=== PATIENT | male | born 1970 | race African-American/Black ===

== ENCOUNTER 2022-02-26 01:49 | Inpatient (IN) | payer BC, OTHER ==
[~2022-02-26] VITALS: Ht 182.9 cm; Wt 201.8 kg
--- NOTE | 2022-02-26 02:00 | NUR ---
[address]IBRA[address] [facility] B&C FOR SOB. O2 SATS DROPPED TO 70'S PER EMS AT TRIAGE O2 SATS 96% ON MECH VENT. GTUBE INTACT. F/C INTACT. PT AWAKE A/OX2. CONNECTED PT TO POX AND MONITOR.
--- NOTE | 2022-02-26 02:20 | NUR ---
RT AT PT'S BEDSIDE PT WITH VENT SETTINGS: TV 425 RR 18 PEEP 5 PMAX 68
--- NOTE | 2022-02-26 02:30 | NUR ---
RT NOTE PATIENT RECEIVED TRACH VIA BIVONA 8 ON BVM 15LPM BY FD. PATIENT SHOWED SIGNS OF TACHYPNEA AND ACCESSORY MUSCLE USAGE. PATIENT PLACED ON MECHANICAL VENT ON NOTED SETTINGS CHARTED GIVEN FROM FACILITY. ALARMS SET AND AUDIBLE. TRACH IS PATENT AND SECURED. AMBU BAG AT BEDSIDE. WILL CONTINUE TO MONITOR. Addendum: 02/26/22 at 0235 by DORIS GUILLORY RT Amended: Links added.
--- NOTE | 2022-02-26 02:34 | NUR ---
REVERSE UNIT OPERATOR FISHERMAN AT PT'S BEDSIDE
--- NOTE | 2022-02-26 02:46 | NUR ---
RT AT PT'S BEDSIDE FOR ABG
--- NOTE | 2022-02-26 02:55 | NUR ---
ENTRY SPECIALISTS AT PT'S BEDSIDE
[2022-02-26 02:59] LABS: ABG BASE EXCESS -0.9 mmol/L; ABG PCO2 35.4 mmHg (35.0-45.0); ABG PH 7.431 (7.350-7.450); ABG PO2 73.8 mmHg (75.0-100.0); COHb 0.1 % (0.5-1.5); MetHb 0.2 % (0.0-1.5); O2Hb 94.3 % (94.0-97.0); SITE, ABG Right Radial; VENT MODE, BG AC 18 425 40% +5
--- NOTE | 2022-02-26 03:00 | NUR ---
ARCHEOLOGIST AT PT'S BEDSIDE
[2022-02-26 03:46] LABS: BASOPHILS # (AUTO) 0.1 K/uL (0.0-0.2); BASOPHILS % (AUTO) 0.7 % (0.0-2.0); EOSINOPHILS % (AUTO) 0.1 % (0.0-6.0); HEMATOCRIT 33 % (39-51); HEMOGLOBIN 10.2 g/dL (13.5-17.5); LYMPHOCYTES # (AUTO) 0.7 K/uL (0.8-4.8); LYMPHOCYTES % (AUTO) 3.8 % (20.0-44.0); MEAN CORPUSCULAR HGB CONC 31 g/dl (31.0-36.0); MEAN CORPUSCULAR VOLUME 90 fL (80-96); MONOCYTES # (AUTO) 0.9 K/uL (0.1-1.30); MONOCYTES % (AUTO) 5.2 % (2.0-12.0); NEUTROPHILS # (AUTO) 16.4 K/uL (1.8-8.9); NEUTROPHILS % (AUTO) 90.2 % (43.0-81.0); PLATELET COUNT (AUTO) 243 K/uL (150-450); RED BLOOD CELL COUNT(AUTO) 3.67 MIL/uL (4.5-6.0); WHITE BLOOD COUNT (AUTO) 18.2 K/uL (4.3-11.0)
[2022-02-26 04:05] LABS: CALCIUM, SERUM 9.4 mg/dL (8.5-10.1); CARBON DIOXIDE 27 mmol/L (21-32); CHLORIDE 105 mmol/L (98-107); CREATININE 1.1 mg/dL (0.6-1.3); GLUCOSE 106 mg/dL (74-106); POTASSIUM 4.5 mmol/L (3.5-5.1); SODIUM SERUM 140 mmol/L (136-145); UREA NITROGEN, BLOOD 17 mg/dL (7-18)
[2022-02-26 04:10] LABS: ALANINE AMINOTRANSFERASE 38 U/L (12-78); ALBUMIN 2.3 g/dL (3.4-5.0); ALKALINE PHOSPHATASE 150 U/L (46-116); ASPARTATE AMINOTRANSFERASE 23 U/L (15-37); BILIRUBIN,DIRECT 0.5 mg/dL (0.0-0.2); BILIRUBIN,TOTAL 0.9 mg/dL (0.2-1.0); TOTAL PROTEIN, SERUM 7.4 g/dL (6.4-8.2)
--- NOTE | 2022-02-26 04:50 | NUR ---
URINE COLLECTED AND SENT TO LAB
[2022-02-26 05:08] LABS: BILIRUBIN,URINE NEGATIVE (NEGATIVE); COLOR,URINE YELLOW (YELLOW); LEUKOCYTE ESTERASE ,URINE NEGATIVE (NEGATIVE); NITRITE, URINE NEGATIVE (NEGATIVE); PH,URINE 5.5 (5.0-8.0); PROTEIN,URINE 30 mg/dl (NEGATIVE); UGLUCOSE NEGATIVE (NEGATIVE); UROBILINOGEN,URINE 0.2 EU/dL (0.2)
[2022-02-26] MEDS ORDERED: FUROSEMIDE 40 MG/4 ML VIAL IV ONE (06:30)
[2022-02-26] MEDS ORDERED: FUROSEMIDE 40 MG/4 ML VIAL ONE (06:38)
--- NOTE | 2022-02-26 07:11 | NUR ---
DR. ARENAS ASSOCIATE RELATIONS SPECIALIST AT PT'S BEDSIDE
--- NOTE | 2022-02-26 07:20 | NUR ---
ASSESSED PT ON BED AWAKE AND ALERT, ON VENT VIA TRACH, HOOKED TO V/S MONITOR, KEPT RESTED AND COMFORTABLE. WILL CONTINUE TO MONITOR.
[2022-02-26] MEDS ORDERED: AZITHROMYCIN 500 MG in IV D5W 250 ML IV ONE (08:00)
[2022-02-26] MEDS ORDERED: CEFEPIME 2 GM in IV D5W 100 ML IV ONE (08:00)
--- NOTE | 2022-02-26 08:34 | NUR ---
MID LINE RN AT BEDSIDE
[2022-02-26] MEDS ORDERED: DIGOXIN INJ 0.5 MG/2 ML AMPUL ONE (08:55)
[2022-02-26] MEDS ORDERED: ENOXAPARIN SODIUM 40 MG/0.4 ML DISP.SYRIN SQ ONE (08:55)
[2022-02-26] MEDS: VANCOMYCIN 1.5 GM in IV D5W 500 ML IV ONE ×2 (09:00→09:37)
[2022-02-26] MEDS: ENOXAPARIN SODIUM 40 MG/0.4 ML DISP.SYRIN SQ SCH (09:00)
[2022-02-26] MEDS: DIGOXIN INJ 0.5 MG/2 ML AMPUL IV SCH ×3 (09:06→20:21)
[2022-02-26] MEDS ORDERED: HYDROCODONE/APAP 5/325MG TABLET PO PRN (11:00)
[2022-02-26] MEDS ORDERED: MAG HYDROX/AL HYDROX/SIMETH 30 ML UDC PO PRN (12:00)
[2022-02-26] MEDS ORDERED: MAGNESIUM HYDROXIDE 30 ML UDC PO PRN (12:00)
[2022-02-26] MEDS ORDERED: ENOXAPARIN SODIUM 40 MG/0.4 ML DISP.SYRIN SQ SCH (12:00)
[2022-02-26] MEDS ORDERED: Z GUARD REMEDY 4 OZ OINT TP PRN (12:00)
[2022-02-26] MEDS ORDERED: ONDANSETRON HCL/PF 4 MG/2 ML VIAL IVP PRN (12:00)
--- NOTE | 2022-02-26 13:50 | NUR ---
116-1 BED ASSIGNED, SANDOVAL CARTY REPORT CALLED AT 1530 AND PATIENT MOVED AT 1600
--- NOTE | 2022-02-26 16:23 | NUR ---
PT TRANSFERRED TO [facility] PER ACLS PROTOCOL.
--- NOTE | 2022-02-26 17:20 | NUR ---
RN NOTES RECEIVED PATIENT FROM E.R, BEDSIDE ENDORSEMENT RECEIVED. PATIENT ON VENT, TOLERATING SETTINGS WELL. TRANSFERRED TO BED SAFELY. PLACE BED ON LOWEST LOCKED POSITION. CALL LIGHT WITHIN EASY REACH. STARTED ON IV ANTIBIOTICS ORDERED. VS TAKEN AND RECORDED. WILL ENDORSE TO ONCOMING FOR FURTHER ADMISSION INTERVENTION AND POC. .
[2022-02-26] MEDS: CEFEPIME 2 GM in IV D5W 100 ML IV SCH ×2 (17:51→20:20)
[2022-02-26 18:24] VITALS: BP 138/82
[2022-02-26] MEDS: VANCOMYCIN 1.25 GM in IV D5W 250 ML IV SCH (18:28)
--- NOTE | 2022-02-26 19:30 | NUR ---
RN NOTE RECEIVED PATIENT IN BED, AO X 1-2, IN NO ACUTE DISTRESS AT THIS TIME. ON TRACH BIVONA#8 CONNECTED TO MECHANICAL VENT ON AC MODE AT RATE OF 18, TV 425, FIO2 40%, PEEP 5, TOLERATING WELL, SATURATION AT 100%, ST ON THE MONITOR, HR IS 146. NOTED IV SITE AT LFA 20G, AND JOVANNY MIDLINE, ALL HUBS PATENT AND FLUSHING WELL, NO S/S OF INFECTION OR INFILTRATION. GTUBE IN PLACE, CLAMPED. NPO STATUS MAINTAINED PER MD ORDER. SAFETY MEASURES IMPLEMENTED. PATIENT BED ALARM IS ON. HEAD OF BED ELEVATED. BED IS LOCKED, IN LOWEST POSITION AND SIDE RAILS UP. CALL LIGHT WITHIN REACH OF THE PATIENT. WILL CONTINUE TO MONITOR AND REASSESS FOR ANY CHANGES.
[2022-02-26] MEDS: HYDROCODONE/APAP 5/325MG TABLET PO PRN (19:42)
[2022-02-26 20:00] VITALS: BP 143/75
--- NOTE | 2022-02-26 22:50 | NUR ---
RN NOTE NOTED PATIENT ST ON THE MONITOR, HR CONSISTENTLY ELEVATED LOWEST AT 148 TO LOW 150'S, PRN PAIN MEDICATION ADMINISTERED AT 1942, DIGOXIN 0.25 MG IV ADMINISTERED SCHEDULED, HR REMAINS AT 140'S. DR OCONNOR WAS NOTIFIED, ACKNOWLEDGED WITH NO NEW ORDERS. GOLF TOURNAMENT CONSULTANT CHAZ MADE AWARE. WILL CONT TO MONITOR PATIENT
[2022-02-27] VITALS: BP 147/78
[2022-02-27] MEDS: VANCOMYCIN 1.25 GM in IV D5W 250 ML IV SCH ×2 (02:25→11:55)
[2022-02-27] MEDS: HYDROCODONE/APAP 5/325MG TABLET PO PRN ×2 (02:47→03:38)
[2022-02-27 04:00] VITALS: BP 116/80
--- NOTE | 2022-02-27 05:30 | NUR ---
RN NOTE IAN RT AT BEDSIDE FOR EKG, RESULTED: ST AT 148.
[2022-02-27 07:12] LABS: BASOPHILS % (AUTO) 0.2 % (0.0-2.0); EOSINOPHILS % (AUTO) 0.2 % (0.0-6.0); HEMATOCRIT 31 % (39-51); HEMOGLOBIN 9.8 g/dL (13.5-17.5); LYMPHOCYTES # (AUTO) 1.1 K/uL (0.8-4.8); LYMPHOCYTES % (AUTO) 5.7 % (20.0-44.0); MEAN CORPUSCULAR HGB CONC 31 g/dl (31.0-36.0); MEAN CORPUSCULAR VOLUME 90 fL (80-96); MONOCYTES # (AUTO) 1.5 K/uL (0.1-1.30); MONOCYTES % (AUTO) 7.8 % (2.0-12.0); NEUTROPHILS # (AUTO) 16.8 K/uL (1.8-8.9); NEUTROPHILS % (AUTO) 86.1 % (43.0-81.0); PLATELET COUNT (AUTO) 199 K/uL (150-450); RED BLOOD CELL COUNT(AUTO) 3.47 MIL/uL (4.5-6.0); WHITE BLOOD COUNT (AUTO) 19.5 K/uL (4.3-11.0)
[2022-02-27 07:45] LABS: CALCIUM, SERUM 8.9 mg/dL (8.5-10.1); CREATININE 0.9 mg/dL (0.6-1.3); MAGNESIUM 2.1 mg/dL (1.8-2.4); POTASSIUM 3.9 mmol/L (3.5-5.1)
[2022-02-27 07:46] LABS: THYROID STIMULATING HORMONE 3.624 uIU/mL (0.358-3.74)
[2022-02-27 08:00] VITALS: BP 121/83
[2022-02-27] MEDS: CEFEPIME 2 GM in IV D5W 100 ML IV SCH ×2 (08:56→19:37)
[2022-02-27] MEDS: PANTOPRAZOLE 40 MG TABLET.DR PO SCH (08:56)
[2022-02-27] MEDS: ENOXAPARIN SODIUM 40 MG/0.4 ML DISP.SYRIN SQ SCH (08:57)
[2022-02-27] MEDS ORDERED: AMIODARONE 450 MG in IV D5W 250 ML IV PRN (09:00)
[2022-02-27] MEDS ORDERED: AMIODARONE 150 MG in IV D5W 100 ML IV ONE (09:00)
[2022-02-27 12:00] VITALS: BP 124/77
[2022-02-27] MEDS ORDERED: NA P133E RC (14:46)
[2022-02-27] MEDS ORDERED: METO25TA20 GT (14:46)
[2022-02-27] MEDS ORDERED: CRAN425C6 GT (14:46)
[2022-02-27] MEDS ORDERED: ACET-868 GT (14:46)
[2022-02-27] MEDS ORDERED: BISA10SU11 RC (14:46)
[2022-02-27] MEDS ORDERED: AMMO385C4 TP (14:46)
[2022-02-27] MEDS ORDERED: POLY17PO4 GT (14:46)
[2022-02-27] MEDS ORDERED: PANT40SU2 GT (14:46)
[2022-02-27] MEDS ORDERED: INSU100V39 SQ (14:46)
[2022-02-27] MEDS ORDERED: GLUC1KIT IM (14:46)
[2022-02-27] MEDS ORDERED: ONDA4TAB5 GT (14:46)
[2022-02-27] MEDS ORDERED: ENOX40DI SQ (14:46)
[2022-02-27] MEDS ORDERED: MAGN400O6 GT (14:46)
[2022-02-27] MEDS ORDERED: AMIO200T5 GT (14:46)
[2022-02-27] MEDS ORDERED: NS C250O2 GT (14:46)
[2022-02-27 16:00] VITALS: BP 113/99
[2022-02-27] MEDS: AMIODARONE 450 MG in IV D5W 241 ML IV PRN ×2 (16:38→22:23)
--- NOTE | 2022-02-27 19:30 | NUR ---
RN OPENING NOTES RECEIVED PATIENT IN BED, A/O X 2. NO ACUTE DISTRESS NOTED AT THIS TIME. PT CURRENTLY ON TRACH BIVONA#8 CONNECTED TO MECHANICAL VENT ON AC MODE AT RATE OF 18, TV 425, FIO2 40%, PEEP 5, TOLERATING WELL, O2 SATURATION OF 96%. PT ON TELE MONITORING SHOWING ST WITH HR OF 132. IV SITE IS AT LFA 20G, AND JOVANNY MIDLINE, INTACT AND PATENT. CURRENTLY ON AMIO DRIP 1 MG/HR. NO S/S OF INFILTRATION NOTED. GTUBE IN PLACE, CLAMPED. PT IS NPO PER MD ORDER. GARCIA CONNECTED TO URINE BAG, DRAINING WELL, WITH DARK YELLOW COLORED URINE NOTED. ALL SAFETY MEASURES IMPLEMENTED. KEPT HEAD OF THE BED ELEVATED. BED IS LOCKED, IN LOWEST POSITION, SIDE RAILS UP X 3 NOTED. CALL LIGHT WITHIN REACH. WILL CONTINUE TO MONITOR FOR ANY CHANGES.
--- NOTE | 2022-02-27 19:40 | NUR ---
RN NOTE VANCO TROUGH RESULTED 27. CALLED [facility], SPOKE WITH NGHIA. 1800 DOSE WILL BE HELD AND OK TO GIVE 2AM VANCO DOSE AND FOR PHARMACY IN AM TO FOLLOW UP.
[2022-02-27 20:00] VITALS: BP 124/77
[2022-02-27] MEDS ORDERED: VANCOMYCIN 1.25 GM in IV D5W 250 ML IV SCH (20:30)
[2022-02-28] VITALS: BP 120/75
[2022-02-28] MEDS: CEFEPIME 2 GM in IV D5W 100 ML IV SCH ×3 (01:12→16:33)
--- NOTE | 2022-02-28 01:21 | NUR ---
RN NOTE SPOKE WITH DYLON DAMON. NOTIFIED PATIENT DOES NOT HAVE FLUIDS OR TUBE FEEDING ORDER. RECEIVED NEW ORDER OK TO START JEVITY 1.2 GOAL 80ML/HR PER RD RECOMMENDATION. NOTED AND CARRIED OUT.
[2022-02-28] MEDS ORDERED: VANCOMYCIN 1.25 GM in IV D5W 250 ML IV ONE (02:00)
[2022-02-28 04:00] VITALS: BP 138/80
[2022-02-28] MEDS: JEVITY 1.2 CAL 1,000 ML BOTTLE GT PRN (04:46)
--- NOTE | 2022-02-28 07:12 | NUR ---
RN CLOSING NOTES NO SIGNIFICANT CHANGES THROUGHOUT THE SHIFT. PT IS A/O X 2, RESPONDS VERBALLY WHEN ASKED QUESTIONS. ON MECHANICAL VENT, TOLERATING WELL, WITH 02 SATURATION OF 100%. PT HAS JOVANNY MIDLINE, LFA WITH GAUGE #20, INTACT AND PATENT. CONTINUOUS AMIO DRIP RUNNING AT 16.6 ML/HR X 18 HRS. PT ON TELE MONITORING SHOWING A FLUTTER WITH HR IN 150S. GT FEEDING RESUMED, JEVITY 1.2 AT 40 ML/HR RUNNING WITH GOAL OF 80 ML/HR FOR 24 HRS. NO RESIDUALS NOTED. ALL DUE MEDS GIVEN ORDERED. ALL SAFETY MEASURES IMPLEMENTED. BED IN LOWEST POSITION, LOCKED AND IN PLACE. CALL LIGHT WITHIN REACH. ALL NEEDS ATTENDED. WILL ENDORSE TO AM SHIFT FOR VY.
--- NOTE | 2022-02-28 07:30 | NUR ---
RN OPENING NOTES RECEIVED PATIENT IN BED, A/O X 2. TRACH BIVONA#8 CONNECTED TO MECHANICAL VENT ON AC MODE AT RATE OF 18, TV 425, FIO2 40%, PEEP 5,TOLERATING WELL, O2 SATURATION OF 100%. BREATHING EVEN AND UNLABORED, NO ACUTE DISTRESS,SINUS TACH HR 151 ON MONITOR, DENIES CHEST DISCOMFORT OR PAIN, MED AWARE. JOVANNY MIDLINE WITH AMIO DIRP AT 16.6 ML/HR. [DC TIME 1640 TODAY??] LFA 20G, FLUSHES WELL, BOTH SITES CLEAR. ONGOING GTF JEVITY 1.2 AT 40 ML/HR [GOAL 80 ML/HR], CHECKED FOR PLACEMENT, O RESIDUAL,GARCIA CATHETER IN PLACE TO GRAVITY, DARK YELLOW URINE, NPO FOR NOW, SEE NURSING FLOWSHEET FOR SKIN ASSESSMENT, FOR WOUND CONSULT. ON BARIMAX BED, TURN AND REPOSITION Q 2 HOURS. OFF LOADING, ALL SAFETY MEASURES IMPLEMENTED. KEPT HEAD OF THE BED ELEVATED. BED IS LOCKED, IN LOWEST POSITION, SIDE RAILS UP X 3 NOTED. CALL LIGHT WITHIN REACH. WILL CONTINUE TO MONITOR FOR ANY CHANGES.
[2022-02-28] MEDS: PANTOPRAZOLE 40 MG TABLET.DR PO SCH (07:46)
[2022-02-28 08:00] VITALS: BP 135/69
[2022-02-28] MEDS: ENOXAPARIN SODIUM 40 MG/0.4 ML DISP.SYRIN SQ SCH ×2 (08:57→20:27)
[2022-02-28] MEDS ORDERED: ADENOSINE 6 MG/2 ML VIAL IVP ONE (09:00)
[2022-02-28 09:21] LABS: BASOPHILS # (AUTO) 0.1 K/uL (0.0-0.2); BASOPHILS % (AUTO) 0.6 % (0.0-2.0); EOSINOPHILS % (AUTO) 0.2 % (0.0-6.0); HEMATOCRIT 31 % (39-51); HEMOGLOBIN 9.4 g/dL (13.5-17.5); LYMPHOCYTES # (AUTO) 0.9 K/uL (0.8-4.8); LYMPHOCYTES % (AUTO) 4.8 % (20.0-44.0); MEAN CORPUSCULAR HGB CONC 30 g/dl (31.0-36.0); MEAN CORPUSCULAR VOLUME 92 fL (80-96); MONOCYTES # (AUTO) 1.3 K/uL (0.1-1.30); MONOCYTES % (AUTO) 7.3 % (2.0-12.0); NEUTROPHILS % (AUTO) 87.1 % (43.0-81.0); PLATELET COUNT (AUTO) 187 K/uL (150-450); RED BLOOD CELL COUNT(AUTO) 3.39 MIL/uL (4.5-6.0); WHITE BLOOD COUNT (AUTO) 18.3 K/uL (4.3-11.0)
[2022-02-28] MEDS ORDERED: IV NS 0.9% 250 ML IV PRN (09:30)
--- NOTE | 2022-02-28 09:30 | NUR ---
RN NOTES DUE MEDS GIVEN
--- NOTE | 2022-02-28 09:35 | NUR ---
RN NOTES DR. ARENAS AT BEDSIDE, WITH ORDER TO GIVE ADENOSINE 6 MG IV ONE TIME FOR FAST HEART RATE.
[2022-02-28 09:46] LABS: ALBUMIN 1.9 g/dL (3.4-5.0); BILIRUBIN,TOTAL 0.9 mg/dL (0.2-1.0); CALCIUM, SERUM 8.8 mg/dL (8.5-10.1); CREATININE 0.9 mg/dL (0.6-1.3); MAGNESIUM 1.7 mg/dL (1.8-2.4); PHOSPHORUS 2.6 mg/dL (2.5-4.9); POTASSIUM 3.9 mmol/L (3.5-5.1); TOTAL PROTEIN, SERUM 6.6 g/dL (6.4-8.2)
[2022-02-28] MEDS ORDERED: ENOXAPARIN SODIUM 60 MG/0.6 ML DISP.SYRIN SQ ONE (10:00)
--- NOTE | 2022-02-28 10:09 | NUR ---
WOUND CARE CONSULT: PT PRESENTS WITH RT FOOT DRY BLACK NECROTIC TISSUE, LONG TOENAILS AND SCARRING TO SACRAL/BUTTOCKS AREA, ALL PRESENT ON ADMISSION. PT IS ON BARIMAX ETS AIR BED. DPM CONSULT CALLED TO DR CLEMONS. RECOMMENDATIONS MADE FOR SKIN PROTECTION. DISCUSSED WITH NURSING STAFF. MD IN AGREEMENT WITH PLAN OF CARE.
[2022-02-28 12:00] VITALS: BP 128/77
[2022-02-28] MEDS: ACETAMINOPHEN 325 MG TABLET PO PRN (12:13)
[2022-02-28] MEDS: METOPROLOL TARTRATE 50 MG TABLET PO SCH ×2 (12:13→18:16)
[2022-02-28] MEDS: AMIODARONE 450 MG in IV D5W 241 ML IV PRN (12:17)
[2022-02-28] MEDS ORDERED: ACETAMINOPHEN 650 MG/SUPP.RECT RC PRN (15:00)
[2022-02-28 16:00] VITALS: BP 153/54
--- NOTE | 2022-02-28 16:44 | NUR ---
RN NOTES DR. VALENCIA NOTIFIED, CT SCAN COULD NOT BE DONE. PER CT TECHS, THEIR BED COULD ONLY HOLD UP TO 400 LBS. PT IS 510 LBS
--- NOTE | 2022-02-28 16:46 | NUR ---
UNABLE TO SCAN PATIENT FOR CT OF THE CHEST, PT EXCEEDS WEIGHT LIMIT FOR TABLE WHICH IS 400 LBS.
[2022-02-28] MEDS ORDERED: VANCOMYCIN 1.25 GM in IV D5W 250 ML IV SCH (18:00)
--- NOTE | 2022-02-28 18:32 | NUR ---
RN NOTES VANCO TROUGH 23.4. PHARMACY WINTER VALLES. VANCO IV FOR 1800 NOT ADMINISTERED.
--- NOTE | 2022-02-28 19:21 | NUR ---
TD RN CLOSING NOTES PATIENT IN BED, RESTING, A/O X 2. TRACH BIVONA#8 CONNECTED TO MECHANICAL VENT ON AC MODE AT RATE OF 18, TV 425, FIO2 40%, PEEP 5,TOLERATING WELL, O2 SATURATION OF 100%. BREATHING EVEN AND UNLABORED, NO ACUTE DISTRESS,SINUS TACH HR 131 ON MONITOR, DENIES CHEST DISCOMFORT OR PAIN, JOVANNY MIDLINE WITH AMIO DIRP AT 16.6 ML/HR. LFA 20G, FLUSHES WELL, BOTH SITES CLEAR. ONGOING GTF JEVITY 1.2 AT 80 ML/HR, CHECKED FOR PLACEMENT, O RESIDUAL,GARCIA CATHETER IN PLACE TO GRAVITY 700 ML OUTPUT, DARK YELLOW URINE, NPO. ON [facility] BED, PERFORMED PRESCRIBED WOUND TREATMENT. TURNED AND REPOSITIONED Q 2 HOURS. OFF LOADING, ALL SAFETY MEASURES IMPLEMENTED. KEPT HEAD OF THE BED ELEVATED. BED IS LOCKED, IN LOWEST POSITION, SIDE RAILS UP X 3 NOTED. CALL LIGHT WITHIN REACH. ALL NEEDS MET. PM CARE DONE. WILL ENDORSE TO NEXT SHIFT FOR VY.
--- NOTE | 2022-02-28 19:30 | NUR ---
RN OPENING NOTES RECEIVED PT IN BED, AWAKE AND RESTING, A/O X 2. RESPONDS VERBALLY WHEN ASKED QUESTIONS. TRACH BIVONA#8 CONNECTED TO MECHANICAL VENT ON AC MODE AT RATE OF 18, TV 425, FIO2 40%, PEEP 5,TOLERATING WELL, O2 SATURATION OF 96%. BREATHING EVEN AND UNLABORED, NO S/S OF ACUTE DISTRESS AT THIS TIME. SINUS TACH HR 131 ON MONITOR, DENIES CHEST DISCOMFORT OR PAIN, JOVANNY MIDLINE WITH AMIO DRIP AT 16.6 ML/HR. LFA 20G, FLUSHES WELL, INTACT AND PATENT. ONGOING GTF JEVITY 1.2 AT 80 ML/HR, CHECKED FOR PLACEMENT, O RESIDUAL, TOLERATING WELL. GARCIA CATHETER IN PLACE TO GRAVITY, DRAINING WELL, WITH DARK YELLOW COLORED URINE NOTED. ON [facility] BED, KEPT CLEAN AND DRY. ALL SAFETY MEASURES IMPLEMENTED. KEPT HEAD OF THE BED ELEVATED. BED IS LOCKED, IN LOWEST POSITION, SIDE RAILS UP X 3 NOTED. CALL LIGHT WITHIN REACH. WILL CONTINUE TO MONITOR.
[2022-02-28 20:00] VITALS: BP 125/79
[2022-03-01] VITALS: BP 143/70
[2022-03-01] MEDS: METOPROLOL TARTRATE 50 MG TABLET PO SCH ×4 (00:12→17:21)
[2022-03-01] MEDS: CEFEPIME 2 GM in IV D5W 100 ML IV SCH ×3 (01:02→17:20)
[2022-03-01] MEDS: ACETAMINOPHEN 325 MG TABLET PO PRN (03:01)
--- NOTE | 2022-03-01 03:01 | NUR ---
RN NOTE PATIENT NOTED WITH TEMP 101. ADMINISTERED TYLENOL VIA G-TUBE PRN ORDERED. COOLING MEASURES PROVIDED.
[2022-03-01 04:00] VITALS: BP 113/73
[2022-03-01] MEDS: JEVITY 1.2 CAL 1,000 ML BOTTLE GT PRN (04:03)
[2022-03-01] MEDS: AMIODARONE 450 MG in IV D5W 241 ML IV PRN (04:03)
--- NOTE | 2022-03-01 07:18 | NUR ---
RN CLOSING NOTES PT IN BED, RESTING, A/0 X 2. VERBALLY RESPONSIVE. ON MECHANICAL VENT, TOLERATING WELL, WITH O2 SAT OF 99%. PT HAS JOVANNY AND LFA GAUGE #20. BOTH PATENT AND INTACT. FLUSHES WELL. AMIO DRIP RUNNING AT 16.66 ML/HR. PT IS ON TELE MONITORING SHOWING ST, A FLUTTER AND A FIB AT TIMES, WITH HR IN 120s. PT ON GT FEEDING, JEVITY 1.2 AT 80 ML/HR. FLUSHES WELL, 0 RESIDUAL. ALL DUE MEDS GIVEN ORDERED. ALL NEEDS ATTENDED. TURNED AND REPOSITIONED FREQUENTLY. ALL SAFETY MEASURES FOLLOWED. BED IN LOWEST POSITION, LOCKED IN PLACE. CALL LIGHT WITHIN REACH. WILL ENDORSE TO AM SHIFT FOR VY.
[2022-03-01 07:47] LABS: BASOPHILS # (AUTO) 0.1 K/uL (0.0-0.2); BASOPHILS % (AUTO) 0.4 % (0.0-2.0); EOSINOPHILS % (AUTO) 1.2 % (0.0-6.0); HEMATOCRIT 32 % (39-51); HEMOGLOBIN 9.9 g/dL (13.5-17.5); LYMPHOCYTES # (AUTO) 0.9 K/uL (0.8-4.8); LYMPHOCYTES % (AUTO) 5.4 % (20.0-44.0); MEAN CORPUSCULAR HGB CONC 31 g/dl (31.0-36.0); MEAN CORPUSCULAR VOLUME 92 fL (80-96); MONOCYTES # (AUTO) 1.6 K/uL (0.1-1.30); MONOCYTES % (AUTO) 9.7 % (2.0-12.0); NEUTROPHILS # (AUTO) 14.1 K/uL (1.8-8.9); NEUTROPHILS % (AUTO) 83.3 % (43.0-81.0); PLATELET COUNT (AUTO) 224 K/uL (150-450); WHITE BLOOD COUNT (AUTO) 16.9 K/uL (4.3-11.0)
[2022-03-01 08:00] VITALS: BP 101/28
[2022-03-01] MEDS: VANCOMYCIN 1.25 GM in IV D5W 250 ML IV SCH (08:46)
[2022-03-01] MEDS: ENOXAPARIN SODIUM 40 MG/0.4 ML DISP.SYRIN SQ SCH ×2 (08:54→20:26)
[2022-03-01] MEDS: PANTOPRAZOLE 40 MG TABLET.DR PO SCH (09:24)
[2022-03-01 11:05] LABS: ALBUMIN 1.7 g/dL (3.4-5.0); BILIRUBIN,TOTAL 1.1 mg/dL (0.2-1.0); CALCIUM, SERUM 8.8 mg/dL (8.5-10.1); CREATININE 1.1 mg/dL (0.6-1.3); MAGNESIUM 1.8 mg/dL (1.8-2.4); PHOSPHORUS 3.3 mg/dL (2.5-4.9); POTASSIUM 3.9 mmol/L (3.5-5.1); TOTAL PROTEIN, SERUM 6.4 g/dL (6.4-8.2)
[2022-03-01 12:00] VITALS: BP 140/81
[2022-03-01] MEDS: DIGOXIN 0.25 MG TABLET PO SCH (12:11)
[2022-03-01] MEDS: DILTIAZEM HCL 30 MG TABLET GT SCH ×2 (12:12→17:21)
[2022-03-01 14:26] LABS: BAND % (MANUAL) 1 % (0.0-5.0); LYMPHOCYTES % (MANUAL) 8 % (16-48); MONOCYTES % (MANUAL) 10 % (0-11.0); NEUTROPHILS % (MANUAL) 81 (42-76)
[2022-03-01 16:00] VITALS: BP 115/70
--- NOTE | 2022-03-01 18:45 | NUR ---
GT SITE LEAKING. DRESSING CHANGED. DR. NOLAN AWARE. PICTURE TAKEN AND PLACED IN CHART
--- NOTE | 2022-03-01 19:11 | NUR ---
RN CLOSING NOTES PT A/O X2. VENTED WITH SETTINGS AC 18, TV425, FIO2 40% AND PEEP OF 5. URINE OUTPUT 350CC. PT TOLERATING 80CC JEVITY. PT GT SITE LEAKING AND PER DR. AN MERLOS. NO FEVER REPORTED TODAY.
--- NOTE | 2022-03-01 19:12 | NUR ---
RECEIVED PT IN BED, AWAKE AND RESTING, A/O X 2. RESPONDS VERBALLY WHEN ASKED QUESTIONS. TRACH BIVONA#8 CONNECTED TO MECHANICAL VENT ON AC MODE AT RATE OF 18, TV 425, FIO2 40%, PEEP 5,TOLERATING WELL, O2 SATURATION OF 96%. BREATHING EVEN AND UNLABORED, NO S/S OF ACUTE DISTRESS AT THIS TIME. SINUS TACH HR 131 ON MONITOR, DENIES CHEST DISCOMFORT OR PAIN, JOVANNY MIDLINE LFA 20G, FLUSHES WELL, INTACT AND PATENT.GTUBE LEAKING WILL ORDER KUB XRAY FOR PLACEMENT VERIFICATION GARCIA CATHETER IN PLACE TO GRAVITY, DRAINING WELL, WITH DARK YELLOW COLORED URINE NOTED. ON [facility] BED, KEPT CLEAN AND DRY. ALL SAFETY MEASURES IMPLEMENTED. KEPT HEAD OF THE BED ELEVATED. BED IS LOCKED, IN LOWEST POSITION, SIDE RAILS UP X 3 NOTED. CALL LIGHT WITHIN REACH. WILL CONTINUE TO MONITOR.
[2022-03-01] MEDS ORDERED: DIATR MEGLU/DIATRIZOATE SODIUM 30 ML BOTTLE (GASTROGRAPHIN) ONE (19:34)
[2022-03-01 20:00] VITALS: BP 133/83
--- NOTE | 2022-03-01 22:45 | NUR ---
REPORTED TO HOSPITALIST KATIE PARSONS THAT PT GTUBE WAS MALPOSITION RESULTED FROM KUB X RAY AND PT HAVE SCHEDULED MEDICATION THRU GTUBE FOR HIS HR WITH ORDER TO HOLD THE GTUBE MEDICATION AND INSTEAD GIVE METOPROLOL 5MG IV Q12H AND CARDIZEM 5MG IVP X1 NOTED AND CARRIED OUT
[2022-03-01] MEDS: METOPROLOL TARTRATE INJ 5 MG/5 ML AMPUL IV SCH (23:24)
[2022-03-01] MEDS ORDERED: DILTIAZEM HCL 25 MG IV IV ONE (23:30)
[2022-03-02] VITALS: BP 108/65
[2022-03-02] MEDS: CEFEPIME 2 GM in IV D5W 100 ML IV SCH ×3 (01:30→17:05)
[2022-03-02 04:00] VITALS: BP 131/67
[2022-03-02] MEDS: PANTOPRAZOLE 40 MG TABLET.DR PO SCH (07:30)
--- NOTE | 2022-03-02 07:37 | NUR ---
RN OPENING NOTE RECEIVED PT IN BED, AWAKE AND RESTING, A/O X 2.. TRACH BIVONA#8 CONNECTED TO MECHANICAL VENT ON AC MODE AT RATE OF 18, TV 425, FIO2 40%, PEEP 5,TOLERATING WELL, O2 SATURATION OF 96%. BREATHING EVEN AND UNLABORED, NO S/S OF ACUTE DISTRESS AT THIS TIME. DENIES CHEST DISCOMFORT OR PAIN, JOVANNY MIDLINE LFA 20G, FLUSHES WELL, INTACT AND PATENT. PER ENDORSEMENT PATIENTS G TUBE IN NOT IN PLACE PENDING ORDERS. GARCIA CATHETER IN PLACE TO GRAVITY, DRAINING WELL, WITH DARK YELLOW COLORED URINE NOTED. ALL SAFETY MEASURES IMPLEMENTED. KEPT HEAD OF THE BED ELEVATED. BED IS LOCKED, IN LOWEST POSITION, SIDE RAILS UP X 3 NOTED. CALL LIGHT WITHIN REACH.
[2022-03-02 08:00] VITALS: BP 132/65
[2022-03-02] MEDS: METOPROLOL TARTRATE INJ 5 MG/5 ML AMPUL IV SCH ×2 (08:11→21:22)
[2022-03-02] MEDS: ENOXAPARIN SODIUM 40 MG/0.4 ML DISP.SYRIN SQ SCH (08:16)
--- NOTE | 2022-03-02 08:17 | NUR ---
RN NOTE BASED ON KUB PATIENTS GTUBE IS MISPLACED. WILL HOLD 0900 G TUBE MEDICATION.
[2022-03-02] MEDS: VANCOMYCIN 1.25 GM in IV D5W 250 ML IV SCH (09:27)
[2022-03-02 09:51] LABS: CREATININE 1.4 mg/dL (0.6-1.3); POTASSIUM 3.2 mmol/L (3.5-5.1)
[2022-03-02 10:10] LABS: CALCIUM, SERUM 8.6 mg/dL (8.5-10.1)
[2022-03-02 12:00] VITALS: BP 118/62
[2022-03-02] MEDS: METOPROLOL TARTRATE 50 MG TABLET PO SCH ×2 (12:00→18:00)
[2022-03-02] MEDS ORDERED: METOPROLOL TARTRATE 25 MG TABLET GT SCH (13:00)
[2022-03-02] MEDS: DIGOXIN 0.25 MG TABLET PO SCH (13:00)
[2022-03-02] MEDS: IV LR 1000 ML 1,000 ML IV PRN (15:39)
[2022-03-02 16:00] VITALS: BP 104/72
--- NOTE | 2022-03-02 19:09 | NUR ---
RN CLOSING NOTE RECEIVED PT IN BED, AWAKE AND RESTING, A/O X 2.. TRACH BIVONA#8 CONNECTED TO MECHANICAL VENT ON AC MODE AT RATE OF 18, TV 425, FIO2 40%, PEEP 5,TOLERATING WELL, O2 SATURATION OF 96%. BREATHING EVEN AND UNLABORED, NO S/S OF ACUTE DISTRESS AT THIS TIME. DENIES CHEST DISCOMFORT OR PAIN, JOVANNY MIDLINE LFA 20G, FLUSHES WELL, INTACT AND PATENT. . GARCIA CATHETER IN PLACE TO GRAVITY, DRAINING WELL, WITH DARK YELLOW COLORED URINE NOTED. ALL SAFETY MEASURES IMPLEMENTED. KEPT HEAD OF THE BED ELEVATED. BED IS LOCKED, IN LOWEST POSITION, SIDE RAILS UP X 3 NOTED. CALL LIGHT
--- NOTE | 2022-03-02 19:20 | NUR ---
RN NOTES RECEIVED PT IN BED, AWAKE AND RESTING, A/O X 2 WITH PERIODS OF CONFUSION. TRACH BIVONA#8 CONNECTED TO MECHANICAL VENT ON AC MODE AT RATE OF 18, TV 425, FIO2 40%, PEEP 5,TOLERATING WELL, O2 SATURATION OF 96%. BREATHING EVEN AND UNLABORED, NO S/S OF ACUTE DISTRESS AT THIS TIME. DENIES CHEST DISCOMFORT OR PAIN, JOVANNY MIDLINE LFA 20G, FLUSHES WELL, INTACT AND PATENT. PER ENDORSEMENT PATIENTS G TUBE REMOVED ORDERED. REFUSED NGT GARCIA CATHETER IN PLACE TO GRAVITY, DRAINING WELL, WITH DARK YELLOW COLORED URINE NOTED. ALL SAFETY MEASURES IMPLEMENTED. KEPT HEAD OF THE BED ELEVATED. BED IS LOCKED, IN LOWEST POSITION, SIDE RAILS UP X 3 NOTED. CALL LIGHT WITHIN REACH.
[2022-03-02 20:00] VITALS: BP 125/84
[2022-03-02] MEDS: AMIODARONE HCL 200 MG TABLET GT SCH (21:00)
--- NOTE | 2022-03-02 21:00 | NUR ---
RN NOTES NOTED HR 130'S PATIENT DENIES ANY PAIN OR DISCOMFORT. NO CHEST PAIN. INFOREMED DR. PARSONS PATIENT GT HAS BEEN REMOVED AND P.O AMIODARONE IS DUE. DR PARSONS INFOREMED AND SAID HELD PO AMIODARONE FOR NOW.
[2022-03-03] VITALS: BP 124/68
--- NOTE | 2022-03-03 | NUR ---
RN NOTES DUE METOPROLOL PO NOT GIVEN PATIENT IS ON NPO. FOR GT RE-INSERTION.
[2022-03-03] MEDS: CEFEPIME 2 GM in IV D5W 100 ML IV SCH ×3 (01:27→16:07)
[2022-03-03 04:00] VITALS: BP 126/65
[2022-03-03] MEDS: IV LR 1000 ML 1,000 ML IV PRN ×2 (04:28→18:06)
[2022-03-03] MEDS: METOPROLOL TARTRATE 50 MG TABLET PO SCH ×4 (06:00→17:03)
--- NOTE | 2022-03-03 06:02 | NUR ---
RN NOTES METOPROLOL NOT GIVEN PATIENT IS NPO NO GT.
--- NOTE | 2022-03-03 06:43 | NUR ---
RN NOTES PATIENT IN VENT WITH PRESCRIBED SETTINGS TOLERATING WELL SATING 98%. STILL ON SINUS TACH NO CHEST PAIN NO DISTRESS NOTED. ALL IV MEDS GIVEN ORDERED. ALL NEEDS ATTENDED PROMPTLY. IV LINE PATENT FLUSHES WELL ON CONTINUOS IVF LR @ 80 CC/HR. GARCIA PATENT. ALL NEEDS ATTENDED. KEPT CLEAN AND DRYA AT ALL TIMES. WILL ENDORSE TO MORNING SHIFT FOR VY.
[2022-03-03 07:24] LABS: BASOPHILS % (AUTO) 0.3 % (0.0-2.0); HEMATOCRIT 28 % (39-51); HEMOGLOBIN 8.7 g/dL (13.5-17.5); LYMPHOCYTES % (AUTO) 7.3 % (20.0-44.0); MEAN CORPUSCULAR HGB CONC 31 g/dl (31.0-36.0); MEAN CORPUSCULAR VOLUME 91 fL (80-96); MONOCYTES # (AUTO) 1.8 K/uL (0.1-1.30); MONOCYTES % (AUTO) 14.2 % (2.0-12.0); NEUTROPHILS % (AUTO) 77.2 % (43.0-81.0); PLATELET COUNT (AUTO) 183 K/uL (150-450); RED BLOOD CELL COUNT(AUTO) 3.06 MIL/uL (4.5-6.0); WHITE BLOOD COUNT (AUTO) 12.9 K/uL (4.3-11.0)
[2022-03-03] MEDS: PANTOPRAZOLE 40 MG TABLET.DR PO SCH (07:30)
[2022-03-03 07:33] LABS: CALCIUM, SERUM 8.4 mg/dL (8.5-10.1); CREATININE 1.8 mg/dL (0.6-1.3); MAGNESIUM 1.9 mg/dL (1.8-2.4); PHOSPHORUS 3.1 mg/dL (2.5-4.9); POTASSIUM 3.1 mmol/L (3.5-5.1)
--- NOTE | 2022-03-03 07:50 | NUR ---
RN OPENING NOTE PATIENT RECEIVED IN BED, RESTING. PATIENT ON MECHANICAL VENTILATOR WITH FIO2 40%. GARCIA CATH IN PLACE. GTUBE REMOVED YESTERDAY ORDERED. LEFT UA MIDLINE RUNNING LR AT 80 CC/HR. NO SIGNS OF ACUTE DISTRESS NOTED AT THIS TIME. BED LOCKED AND IN LOWEST POSITION, CALL LIGHT WITHIN REACH, 2 SIDE RAILS UP. WILL CONTINUE TO MONITOR.
[2022-03-03 08:00] VITALS: BP 130/59
[2022-03-03] MEDS: AMIODARONE HCL 200 MG TABLET GT SCH ×2 (08:27→21:00)
--- NOTE | 2022-03-03 08:27 | NUR ---
RN NOTE GTUBE REMOVED YESTERDAY PER ORDER. UNABLE TO GIVE PO/GTUBE MEDS AT THIS TIME. AWAITING GI CONSULT.
[2022-03-03] MEDS: METOPROLOL TARTRATE INJ 5 MG/5 ML AMPUL IV SCH ×2 (08:59→22:01)
[2022-03-03] MEDS: VANCOMYCIN 1.25 GM in IV D5W 250 ML IV SCH (09:32)
[2022-03-03 10:01] LABS: NEUTROPHILS % (MANUAL) 74 (42-76)
[2022-03-03 10:03] LABS: LYMPHOCYTES % (MANUAL) 12 % (16-48); METAMYELOCYTES % 1 % (0-0); MYELOCYTES % 1 % (0-0)
[2022-03-03 10:04] LABS: MONOCYTES % (MANUAL) 12 % (0-11.0)
[2022-03-03] MEDS: POTASSIUM CL. PREMIX PERIPHER. 50 ML IV SCH ×3 (10:20→12:23)
[2022-03-03 12:00] VITALS: BP 98/68
[2022-03-03] MEDS: DIGOXIN 0.25 MG TABLET PO SCH (12:09)
[2022-03-03] MEDS ORDERED: IV NS 0.9% 500 ML IV ONE (12:30)
[2022-03-03 16:00] VITALS: BP 103/53
--- NOTE | 2022-03-03 18:40 | NUR ---
RN CLOSING NOTE PATIENT REMAINS IN BED, RESTING. PATIENT ON MECHANICAL VENTILATOR WITH FIO2 40%. GARCIA CATH IN PLACE. LEFT UA MIDLINE RUNNING LR AT 80 CC/HR. NO SIGNS OF ACUTE DISTRESS NOTED AT THIS TIME. ALL NEEDS ATTENDED DURING SHIFT. BED LOCKED AND IN LOWEST POSITION, CALL LIGHT WITHIN REACH, 2 SIDE RAILS UP. WILL ENDORSE TO INSECT CONTROL INSPECTOR NURSE.
--- NOTE | 2022-03-03 19:20 | NUR ---
RN NOTES RECEIVED PT IN BED, AWAKE AND RESTING, A/O X 2 WITH PERIODS OF CONFUSION. TRACH BIVONA#8 CONNECTED TO MECHANICAL VENT ON AC MODE AT RATE OF 18, TV 425, FIO2 40%, PEEP 5,TOLERATING WELL, O2 SATURATION OF 96%. BREATHING EVEN AND UNLABORED, NO S/S OF ACUTE DISTRESS AT THIS TIME. DENIES CHEST DISCOMFORT OR PAIN, JOVANNY MIDLINE LFA 20G, FLUSHES WELL, INTACT. GARCIA CATHETER IN PLACE TO GRAVITY, DRAINING WELL, WITH DARK YELLOW COLORED URINE NOTED. ALL SAFETY MEASURES IMPLEMENTED. KEPT HEAD OF THE BED ELEVATED. BED IS LOCKED, IN LOWEST POSITION, SIDE RAILS UP X 3 NOTED. CALL LIGHT WITHIN REACH.
[2022-03-03 20:00] VITALS: BP 110/68
--- NOTE | 2022-03-03 21:15 | NUR ---
RN NOTES RECEIVED PHONE CALL FROM DR. GAMINO TO PUT PATIENT ON NPO POST MIDNIGHT FOR LOWER EXTREMITY ANGIOGRAM AND POSSIBLE INTERVENTION.
[2022-03-04] VITALS: BP 128/64
--- NOTE | 2022-03-04 01:17 | NUR ---
GEOVANY NOTES DUE AMIODARONE NOT GIVEN PATIENT NO GT. ARE ALL AWARE Addendum: 03/04/22 at 0120 by LUCA MUNOZ RN ADDENDUM 2100 AMIODARONE NOT GIVEN
[2022-03-04] MEDS: CEFEPIME 2 GM in IV D5W 100 ML IV SCH ×2 (01:24→08:43)
[2022-03-04 04:00] VITALS: BP 114/80
[2022-03-04] MEDS: METOPROLOL TARTRATE 50 MG TABLET PO SCH ×3 (06:00→12:00)
[2022-03-04 06:23] LABS: BASOPHILS # (AUTO) 0.1 K/uL (0.0-0.2); BASOPHILS % (AUTO) 0.7 % (0.0-2.0); EOSINOPHILS % (AUTO) 1.4 % (0.0-6.0); HEMATOCRIT 28 % (39-51); HEMOGLOBIN 8.8 g/dL (13.5-17.5); LYMPHOCYTES % (AUTO) 9.2 % (20.0-44.0); MEAN CORPUSCULAR HGB CONC 31 g/dl (31.0-36.0); MEAN CORPUSCULAR VOLUME 91 fL (80-96); MONOCYTES # (AUTO) 1.9 K/uL (0.1-1.30); MONOCYTES % (AUTO) 18.3 % (2.0-12.0); NEUTROPHILS # (AUTO) 7.3 K/uL (1.8-8.9); NEUTROPHILS % (AUTO) 70.4 % (43.0-81.0); PLATELET COUNT (AUTO) 187 K/uL (150-450); RED BLOOD CELL COUNT(AUTO) 3.11 MIL/uL (4.5-6.0); WHITE BLOOD COUNT (AUTO) 10.4 K/uL (4.3-11.0)
--- NOTE | 2022-03-04 06:51 | NUR ---
RN NOTES PATIENT IN VENT WITH PRESCRIBED SETTINGS TOLERATING WELL SATING 98%. STILL ON SINUS TACH NO CHEST PAIN NO DISTRESS NOTED. ALL IV MEDS GIVEN ORDERED. ALL NEEDS ATTENDED PROMPTLY. IV LINE PATENT FLUSHES WELL ON CONTINUOS IVF LR @ 80 CC/HR. GARCIA PATENT. ALL NEEDS ATTENDED. FOR LOWER EXTREMITY ANGIOGRAM AND POSSIBLE INTERVENTION KEPT CLEAN AND DRY AT ALL TIMES. WILL ENDORSE TO MORNING SHIFT FOR VY.
[2022-03-04 07:14] LABS: CALCIUM, SERUM 8.8 mg/dL (8.5-10.1); CREATININE 2.1 mg/dL (0.6-1.3); MAGNESIUM 2.1 mg/dL (1.8-2.4); PHOSPHORUS 3.4 mg/dL (2.5-4.9); POTASSIUM 3.3 mmol/L (3.5-5.1)
[2022-03-04] MEDS: PANTOPRAZOLE 40 MG TABLET.DR PO SCH ×2 (07:30→07:52)
--- NOTE | 2022-03-04 07:40 | NUR ---
RN OPENING NOTES RECEIVED PATIENT BY OUTGOING NURSE FOR CONTINUITY OF CARE. PATIENT IN BED, AWAKE. AOx2-3. NO SOB NOTED. NO S/SX OF RESPIRATORY DISTRESS NOTED. TELE MONITOR DETECTS SINUS RHYTHM WITH RATE OF 90s. IV ACCESS LEFT UPPER ARM MIDLINE RUNNING 80 mL/ hr. SAFETY PRECAUTIONS IN PLACE: BED IN LOWEST, LOCKED POSITION, SIDE RAILS UPx2, AND BRAKES ON. TABLE AND CALL LIGHT WITHIN REACH. WILL CONTINUE TO MONITOR
[2022-03-04 08:00] VITALS: BP 127/58
[2022-03-04 08:18] LABS: BAND % (MANUAL) 1 % (0.0-5.0); LYMPHOCYTES % (MANUAL) 9 % (16-48); METAMYELOCYTES % 1 % (0-0); MONOCYTES % (MANUAL) 13 % (0-11.0); MYELOCYTES % 2 % (0-0); NEUTROPHILS % (MANUAL) 74 (42-76)
[2022-03-04] MEDS: METOPROLOL TARTRATE INJ 5 MG/5 ML AMPUL IV SCH ×2 (08:46→21:58)
[2022-03-04] MEDS: IV LR 1000 ML 1,000 ML IV PRN (08:55)
[2022-03-04] MEDS: AMIODARONE HCL 200 MG TABLET GT SCH ×2 (09:00→21:00)
[2022-03-04] MEDS ORDERED: VANCOMYCIN 1 GM in IV D5W 250 ML IV SCH (09:00)
[2022-03-04] MEDS: POTASSIUM CL. PREMIX PERIPHER. 50 ML IV SCH ×4 (09:36→13:55)
[2022-03-04] MEDS ORDERED: ANESTHESIA TRAY IN PYXIS 1 EA TRAY MC ONE (11:12)
--- NOTE | 2022-03-04 11:15 | NUR ---
RN NOTE CALLED PATIENTS MOTHER NEFTALI DEGROOT. MOTHER HAD RECEIVED CALL FORM PHYSICIAN EARLIER, CONFIRMED CONSENT. MOTHER GAVE CONSENT FOR PLACEMENT OF PERCUTANEOUS ENDOSCOPIC GASTROSTOMY PLACEMENT, ANESTHESIA, AND BLOOD TRANSFUSION.
[2022-03-04 12:00] VITALS: BP 121/67
[2022-03-04] MEDS ORDERED: MAG HYDROX/AL HYDROX/SIMETH 30 ML UDC GT PRN (12:29)
[2022-03-04] MEDS ORDERED: MAGNESIUM HYDROXIDE 30 ML UDC GT PRN (12:31)
[2022-03-04] MEDS: DIFLUCAN -NS 100 MG in PREMIX IV SCH (12:40)
--- NOTE | 2022-03-04 13:00 | NUR ---
RN NOTE PER PROVIDER OKAY TO USE PEG @1600 MEDS AND 03/05/2022 AM RESUME TUBE FEEDING ORDERS PLACED
--- NOTE | 2022-03-04 14:03 | NUR ---
RN NOTE URINE COLLECTED FOR ANALYSIS SENT OUT TO LAB
[2022-03-04] MEDS: DIGOXIN 0.25 MG TABLET GT SCH (14:11)
[2022-03-04] MEDS: MORPHINE SULFATE INJ 4 MG/ML DISP.SYRIN IV PRN (14:23)
[2022-03-04 16:00] VITALS: BP 133/65
[2022-03-04] MEDS ORDERED: AMIODARONE 150 MG in IV D5W 100 ML IV ONE (18:30)
[2022-03-04] MEDS: METOPROLOL TARTRATE 50 MG TABLET GT SCH (18:58)
--- NOTE | 2022-03-04 19:20 | NUR ---
RN NOTES RECEIVED PT IN BED ASLEEP AND RESTING, PATIENT IS LETHARGIC. TRACH BIVONA#8 CONNECTED TO MECHANICAL VENT ON AC MODE AT RATE OF 18, TV 425, FIO2 40%, PEEP 5,TOLERATING WELL, O2 SATURATION OF 96%. NO S/S OF ACUTE DISTRESS AT THIS TIME. DENIES CHEST DISCOMFORT OR PAIN, JOVANNY MIDLINE LFA 20G, FLUSHES WELL, INTACT. GARCIA CATHETER IN PLACE TO GRAVITY, DRAINING WELL, WITH DARK YELLOW COLORED URINE NOTED.WILL START AMIODARONE BOLUS PATIENT HR @ 140'S ALL SAFETY MEASURES IMPLEMENTED. KEPT HEAD OF THE BED ELEVATED. BED IS LOCKED, IN LOWEST POSITION, SIDE RAILS UP X 3 NOTED. CALL LIGHT WITHIN REACH. WILL CLOSELY MONITOR THE PATIENT
--- NOTE | 2022-03-04 19:30 | NUR ---
RN CLOSING NOTE PATIENT REMAINS IN BED, RESTING. PATIENT ON MECHANICAL VENTILATOR WITH FIO2 40%. GARCIA CATH IN PLACE 400ML OUTPUT. LEFT UA MIDLINE RUNNING LR AT 80 CC/HR. LEFT FOREARM 20G SL. PEG PLACED TODAY PATIENT IS TO RECEIVE MEDS VIA PEG AND RESUME TUBE FEEDING IN AM. NO SIGNS OF ACUTE DISTRESS NOTED AT THIS TIME. BED LOCKED AND IN LOWEST POSITION, CALL LIGHT WITHIN REACH, 2 SIDE RAILS UP. WILL ENDORSE TO MILL LABOR SUPERVISOR NURSE.
[2022-03-04 20:00] VITALS: BP 137/75
[2022-03-04] MEDS: AMIODARONE 450 MG in IV D5W 241 ML IV PRN (20:24)
--- NOTE | 2022-03-04 20:24 | NUR ---
RN NOTES AMIODARONE AT 1MG/MIN PATIENT REMAINS STABLE NO DISTRESS NOTED
[2022-03-04 22:19] LABS: BILIRUBIN,URINE NEGATIVE (NEGATIVE); COLOR,URINE YELLOW (YELLOW); LEUKOCYTE ESTERASE ,URINE NEGATIVE (NEGATIVE); NITRITE, URINE NEGATIVE (NEGATIVE); PH,URINE 5.5 (5.0-8.0); PROTEIN,URINE 30 mg/dl (NEGATIVE); UGLUCOSE NEGATIVE (NEGATIVE); UROBILINOGEN,URINE 0.2 EU/dL (0.2)
[2022-03-04 22:35] LABS: BACTERIA,URINE 1+ /HPF (None Seen); RBC,URINE 21-50 /HPF (0-2); WBC,URINE 0-2 /HPF (0-3)
[2022-03-04 22:36] LABS: SQUAMOUS EPITHELIAL CELL,UR 0-2 /HPF (None Seen); YEAST,URINE Moderate /HPF (None Seen)
[2022-03-05] VITALS: BP 120/67
[2022-03-05] MEDS: METOPROLOL TARTRATE 50 MG TABLET GT SCH ×2 (01:59→06:12)
[2022-03-05] MEDS: AMIODARONE 450 MG in IV D5W 241 ML IV PRN (03:09)
[2022-03-05] MEDS: IV LR 1000 ML 1,000 ML IV PRN ×2 (03:37→17:59)
[2022-03-05 04:00] VITALS: BP 121/78
--- NOTE | 2022-03-05 04:45 | NUR ---
RN NOTES NOTED PATIENT LETHARGIC, CALL NAMES JUST OPENS EYES, TACHYPNEIC. PAGED DR PARSONS
[2022-03-05 04:46] LABS: ABG PCO2 52.2 mmHg (35.0-45.0); ABG PH 7.264 (7.350-7.450); ABG PO2 74.5 mmHg (75.0-100.0); COHb 0.3 % (0.5-1.5); MetHb 0.2 % (0.0-1.5); O2Hb 93.6 % (94.0-97.0); PEEP,BG 5 cm H2O; SITE, ABG Right Radial; VT, ABG 425 mL
--- NOTE | 2022-03-05 04:55 | NUR ---
RN NOTES RECEIVED NEW ORDER FOR STAT ABG.
--- NOTE | 2022-03-05 07:27 | NUR ---
N NOTES PATIENT IN VENT WITH PRESCRIBED SETTINGS TOLERATING WELL SATING 98%. STILL ON SINUS TACH NO CHEST PAIN NO DISTRESS NOTED. ALL IV MEDS GIVEN ORDERED. still on amniodarone drip at 0.5 mg/min. ALL NEEDS ATTENDED PROMPTLY. IV LINE PATENT FLUSHES WELL ON CONTINUOS IVF LR @ 80 CC/HR. GARCIA PATENT. ALL NEEDS ATTENDED. FOR LOWER EXTREMITY ANGIOGRAM AND POSSIBLE INTERVENTION KEPT CLEAN AND DRY AT ALL TIMES. WILL ENDORSE TO MORNING SHIFT FOR VY.
--- NOTE | 2022-03-05 07:30 | NUR ---
RN OPENING NOTES RECEIVED PT IN BED ASLEEP AND RESTING, LETHARGIC. TRACH BIVONA#8 CONNECTED TO MECHANICAL VENT ON AC MODE AT RATE OF 18, TV 425, FIO2 50%, PEEP 5,TOLERATING WELL, O2 SATURATION OF 96%. NO S/S OF ACUTE DISTRESS AT THIS TIME. NO S/SX OF PAIN NOTED AT THIS TIME, JOVANNY MIDLINE LFA 20G, ONGOING AMIODARONE DRIP 05 MG/MIN, FLUSHES WELL, INTACT. GARCIA CATHETER IN PLACE TO GRAVITY, DRAINING WELL, WITH DARK YELLOW COLORED URINE NOTED. SAFETY MEASURES IN PLACE. KEPT HEAD OF THE BED ELEVATED. BED IS LOCKED, IN LOWEST POSITION, SIDE RAILS UP X 3 NOTED. CALL LIGHT WITHIN REACH. WILL CLOSELY MONITOR THE PATIENT.
--- NOTE | 2022-03-05 07:40 | NUR ---
OXYGEN TITRATION FIO2 DECREASED FROM 50% TO 40% DUE TO 100% SPO2 Addendum: 03/05/22 at 0741 by LEONARDA HAN RT Amended: Links added.
[2022-03-05 08:00] VITALS: BP 105/72
[2022-03-05] MEDS: AMIODARONE HCL 200 MG TABLET GT SCH ×2 (08:44→20:46)
--- NOTE | 2022-03-05 08:44 | NUR ---
RN NOTES PATIENT ON AMIODARONE DRIP, TO CONSUME PER REPORT. DUE AMIODARONE TAB NOT ADMINISTERED.
[2022-03-05] MEDS: PANTOPRAZOLE 40 MG/PACK PACK NG SCH (08:47)
[2022-03-05] MEDS: METOPROLOL TARTRATE INJ 5 MG/5 ML AMPUL IV SCH ×2 (08:48→20:46)
[2022-03-05 08:51] LABS: BASOPHILS # (AUTO) 0.1 K/uL (0.0-0.2); BASOPHILS % (AUTO) 0.8 % (0.0-2.0); EOSINOPHILS % (AUTO) 0.4 % (0.0-6.0); HEMATOCRIT 28 % (39-51); HEMOGLOBIN 8.6 g/dL (13.5-17.5); LYMPHOCYTES % (AUTO) 10.4 % (20.0-44.0); MEAN CORPUSCULAR HGB CONC 30 g/dl (31.0-36.0); MEAN CORPUSCULAR VOLUME 92 fL (80-96); MONOCYTES # (AUTO) 1.7 K/uL (0.1-1.30); NEUTROPHILS # (AUTO) 7.1 K/uL (1.8-8.9); NEUTROPHILS % (AUTO) 71.4 % (43.0-81.0); PLATELET COUNT (AUTO) 151 K/uL (150-450); RED BLOOD CELL COUNT(AUTO) 3.07 MIL/uL (4.5-6.0); WHITE BLOOD COUNT (AUTO) 9.9 K/uL (4.3-11.0)
[2022-03-05 09:00] LABS: CALCIUM, SERUM 8.6 mg/dL (8.5-10.1); CREATININE 2.8 mg/dL (0.6-1.3); MAGNESIUM 2.1 mg/dL (1.8-2.4); POTASSIUM 4.1 mmol/L (3.5-5.1)
[2022-03-05 09:13] LABS: PHOSPHORUS 4.7 mg/dL (2.5-4.9)
--- NOTE | 2022-03-05 09:30 | NUR ---
RN NOTES VERIFIED WITH PREETHI NOLAN DNP REGARDING TUBE FEEDING. MAY RESUME TUBE FEEDING, NO KUB X-RAY NEEDED.
[2022-03-05] MEDS: JEVITY 1.2 CAL 1,000 ML BOTTLE GT PRN (09:33)
--- NOTE | 2022-03-05 09:56 | NUR ---
RN NOTES RESUMING TUBE FEEDING ORDERED, BUT WHEN CHECKING FOR PATENCY BY ADMINISTERING 40 CC OR AIR TO THE G-TUBE, LEAKING OF SECRETIONS ON PREVIOUS SITE NOTED. NOTIFIED PREETHI NOLAN.
--- NOTE | 2022-03-05 10:30 | NUR ---
RN NOTES SEEN ON ROUNDS BY PREETHI NOLAN DNP. PER PREETHI NOLAN DNP-HOLD FEEDING FOR NOW, WILL WAIT ANOTHER DAY IF PEG TUBE IS FEASIBLE FOR FEEDING. MAY USE NEW PEG TUBE FOR MEDS ADMINISTRATION.
[2022-03-05] MEDS: DIFLUCAN -NS 100 MG in PREMIX IV SCH (11:11)
--- NOTE | 2022-03-05 11:15 | NUR ---
fio2 titration fio2 decreased from 40% to 30% due to 98% spo2 Addendum: 03/05/22 at 1117 by LEONARDA HAN RT Amended: Links added.
[2022-03-05 12:00] VITALS: BP 126/77
[2022-03-05] MEDS: DIGOXIN 0.25 MG TABLET GT SCH (12:48)
[2022-03-05 13:10] LABS: EOSINOPHILS % (MANUAL) 1 % (0-4); LYMPHOCYTES % (MANUAL) 13 % (16-48); MONOCYTES % (MANUAL) 17 % (0-11.0); NEUTROPHILS % (MANUAL) 69 (42-76)
--- NOTE | 2022-03-05 14:15 | NUR ---
RT VT INCREASED TO 500 PER MD ORDER. GEOVANY HENDRICKS NOTIFIED AND AWARE. NO SOB NOTED AT THIS TIME. WILL CONTINUE TO MONITOR FOR ANY CHANGES. Addendum: 03/05/22 at 1705 by CHEN KRUGER RT Amended: Links added.
[2022-03-05 16:00] VITALS: BP 129/70
--- NOTE | 2022-03-05 17:53 | NUR ---
RN NOTES WOUND CARE DONE ORDERED.
--- NOTE | 2022-03-05 18:58 | NUR ---
RN CLOSING NOTES PT IN BED ASLEEP AND RESTING. TRACH BIVONA#8 CONNECTED TO MECHANICAL VENT ON AC MODE AT RATE OF 18, TV 425, FIO2 50%, PEEP 5,TOLERATING WELL, O2 SATURATION OF 96%. NO S/S OF ACUTE DISTRESS AT THIS TIME. NO S/SX OF PAIN NOTED AT THIS TIME, JOVANNY MIDLINE LFA 20G, ONGOING LR 1L X 80CC/HR, FLUSHES WELL, INTACT. GARCIA CATHETER IN PLACE TO GRAVITY, DRAINING WELL, WITH DARK YELLOW COLORED URINE NOTED. SAFETY MEASURES IN PLACE. KEPT HEAD OF THE BED ELEVATED. BED IS LOCKED, IN LOWEST POSITION, SIDE RAILS UP X 3 NOTED. CALL LIGHT WITHIN REACH. ALL NEEDS ATTENDED AND MET. DUE MEDS GIVEN ORDERED. WILL ENDORSE TO ONCOMING SHIFT FOR VY.
--- NOTE | 2022-03-05 19:35 | NUR ---
RN NOTES RECEIVED PT FOR CONTINUITY OF CARE. PATIENT A/OX1-2 IN NO S/SX OF ACUTE DISTRESS AT THIS TIME; CURRENTLY ON MECHANICAL VENT; SETTING PRESCRIBED, WITH 02 SAT >95% AT THIS TIME. NOTED IV SITE ON L UA MID#18 & L FA#20;BOTH PATENT, INTACT AND FLUSHING WELL; NO S/S OF INFECTION OR INFILTRATION. PT ALSO HAS ALL SECURED AND INTACT NO SIGNS OF INFECTION. WITH IV FLUID RUNNING ORDERED. WITH GTUBE SECURED, INTACT AND FLUSHING WELL. FEEDING CURRENTLY ON HOLD PER MD ORDER. WILL ENSURE SAFETY MEASURES WITHIN THE SHIFT. PATIENT BED ALARM IS ON. HEAD OF BED ELEVATED. BED IS LOCKED, IN LOWEST POSITION AND SIDE RAILS UP. CALL LIGHT WITHIN REACH OF THE PATIENT. APPLICABLE ISOLATION PRECAUTIONS IN PLACE. WILL CONTINUE TO MONITOR AND REASSESS FOR ANY CHANGES AND WILL CARRY OUT ANY ONGOING AND ACTIVE MD ORDER.
[2022-03-05 20:00] VITALS: BP_SYST 104; BP_SYST 114; BP_DIAS 84
[2022-03-06] VITALS: BP 120/79
[2022-03-06 04:00] VITALS: BP 124/69
--- NOTE | 2022-03-06 06:33 | NUR ---
RN CLOSING NOTE: PATIENT REMAINS IN ROOM IN NO SIGNS OF RESPIRATORY DISTRESS, PATIENT STILL ON MECH VENT; SETTINGS PRESCRIBED;TOLERATING WELL SATURATING @ >95% SP02. SAFETY MEASURES IMPLEMENTED, BED IN LOWEST POSITION, LOCKED, SIDE RAILS UP, CALL LIGHT WITHIN REACH. ALL NEEDS AND ORDERS ADDRESSED DURING THE SHIFT. IV ACCESS MAINTAINED INTACT, SECURED AND FLUSHING WELL. ALL DUE MEDS GIVEN ORDERED & SCHEDULED ; PATIENT TOLERATED WELL.OL PATIENT KEPT CLEAN AND COMFORTABLE WITHIN THE SHIFT. PATIENT ENDORSED TO INCOMING SHIFT RN WITH STABLE VITAL SIGN AND FOR CONTINUITY OF CARE.
[2022-03-06] MEDS: IV LR 1000 ML 1,000 ML IV PRN ×2 (06:45→18:51)
--- NOTE | 2022-03-06 07:30 | NUR ---
RN OPENING NOTE PT OBSERVED IN BED SLEEPING. PT IS ON MECHANICAL VENT WITH ALL PRESCRIBED SETTINGS TOLERATING WELL WITH NO SIGNS OF DISTRESS OR LABORED BREATHING SAT 100%. PT IS A/OX2 AND NODS HEAD WHEN ASKED SIMPLE QUESTIONS. PT HAS FC AND DRAINING URINE TO GRAVITY. WILL RESTART TUBE FEEDING THIS AFTERNOON AND MONITOR FOR LEAKS AND TOLERATION. IV ACCESS L UA ML INFUSING WITH LR @80ML/HR; R FA. BED IS LOCKED IN LOWEST POSITION AND ALL HOSPITAL PROTOCOLS ARE IN PLACE WILL CONTINUE TO MONITOR THIS SHIFT.
[2022-03-06 08:00] VITALS: BP 148/85
[2022-03-06 08:10] LABS: BASOPHILS % (AUTO) 0.6 % (0.0-2.0); HEMATOCRIT 26 % (39-51); HEMOGLOBIN 8.2 g/dL (13.5-17.5); LYMPHOCYTES # (AUTO) 0.8 K/uL (0.8-4.8); LYMPHOCYTES % (AUTO) 9.4 % (20.0-44.0); MEAN CORPUSCULAR HGB CONC 32 g/dl (31.0-36.0); MEAN CORPUSCULAR VOLUME 90 fL (80-96); MONOCYTES # (AUTO) 1.5 K/uL (0.1-1.30); PLATELET COUNT (AUTO) 129 K/uL (150-450); RED BLOOD CELL COUNT(AUTO) 2.89 MIL/uL (4.5-6.0); WHITE BLOOD COUNT (AUTO) 8.6 K/uL (4.3-11.0)
[2022-03-06 08:57] LABS: CALCIUM, SERUM 8.8 mg/dL (8.5-10.1); CREATININE 3.6 mg/dL (0.6-1.3); MAGNESIUM 2.1 mg/dL (1.8-2.4); PHOSPHORUS 3.7 mg/dL (2.5-4.9); POTASSIUM 3.6 mmol/L (3.5-5.1)
[2022-03-06] MEDS: PANTOPRAZOLE 40 MG/PACK PACK NG SCH (09:06)
[2022-03-06] MEDS: METOPROLOL TARTRATE INJ 5 MG/5 ML AMPUL IV SCH ×2 (09:07→20:56)
[2022-03-06] MEDS: AMIODARONE HCL 200 MG TABLET GT SCH ×2 (09:08→20:55)
[2022-03-06] MEDS: DIFLUCAN -NS 100 MG in PREMIX IV SCH (11:15)
[2022-03-06 12:00] VITALS: BP 167/79
[2022-03-06] MEDS: JEVITY 1.2 CAL 1,000 ML BOTTLE GT PRN (12:36)
[2022-03-06] MEDS: DIGOXIN 0.25 MG TABLET GT SCH (12:38)
--- NOTE | 2022-03-06 13:00 | NUR ---
RN NOTE: TUBE FEEDING TF RESUMED AND STARTED AT 20ML/HR. ORDER FOR 80ML/HR. WILL MONITOR FOR ANY LEAKS FROM SITE AND TOLERANCE TO TF.
[2022-03-06 16:00] VITALS: BP 157/85
--- NOTE | 2022-03-06 19:10 | NUR ---
RN NOTE RECEIVED PATIENT IN BED, ON MECHANICAL VENT SETTING: BIVONA 8 TV:500 AC 18 PEEP 5. ON G-TUBE FEEDING JEVITY 1.2 30CC/HR CHECKED PLACEMENT IN PLACE NO RESIDUAL NOTED,IV SITE IS ON LEFT UPPER ARM MIDLINE INTACT PATENT ON LACTATED RINGER 80CC/HR,GARCIA CATHETER IN PLACE URINE DRAINING YELLOW AND CLEAR BY GRAVITY,SAFETY MEASURE IMPLEMENT BED IN LOW POSITION AND LOCKED,HEAD OF THE BED ELEVATED CONTINUE TO MONITOR.
[2022-03-06 20:00] VITALS: BP 140/85
--- NOTE | 2022-03-06 20:05 | NUR ---
RN CLOSING NOTE PT IS IN BED SLEEPING. PT IS ON MECHANICAL VENT WITH ALL PRESCRIBED SETTINGS TOLERATING WELL WITH NO SIGNS OF DISTRESS OR LABORED BREATHING SAT 100%. PT IS A/OX2 AND NODS HEAD WHEN ASKED SIMPLE QUESTIONS. PT HAS FC AND DRAINING URINE TO GRAVITY -200ML. TUBE FEEDING RESTARTED AND INFUSING @30ML/HR. IV ACCESS L UA ML INFUSING WITH LR @80ML/HR; R FA. BED IS LOCKED IN LOWEST POSITION AND ALL HOSPITAL PROTOCOLS ARE IN PLACE WILL ENDORSE TO UNIFORM FORCE CAPTAIN NURSE FOR VY.
[2022-03-07] VITALS: BP 144/88
[2022-03-07 04:00] VITALS: BP 143/89
--- NOTE | 2022-03-07 06:52 | NUR ---
RN NOTE PATIENT REMAINS ON MECHANICAL VENT NO SOB NOT ACUTE DISTRESS NOTED,ALL DUE MEDS GIVEN MD ORDERED KEPT CLEAN AND DRY ALL THE TIME,REPOSITIONING EVERY 2 HOURS ALL NEEDS MET KEPT HEAD OF THE BED ELEVATED,ALL NEEDS MET ENDORSE NEXT COMING SHIFT FOR CONTINUATION OF CARE.
[2022-03-07 07:07] LABS: BASOPHILS % (AUTO) 0.5 % (0.0-2.0); EOSINOPHILS % (AUTO) 3.3 % (0.0-6.0); HEMATOCRIT 28 % (39-51); HEMOGLOBIN 8.9 g/dL (13.5-17.5); LYMPHOCYTES # (AUTO) 0.7 K/uL (0.8-4.8); LYMPHOCYTES % (AUTO) 8.3 % (20.0-44.0); MEAN CORPUSCULAR HGB CONC 32 g/dl (31.0-36.0); MEAN CORPUSCULAR VOLUME 89 fL (80-96); MONOCYTES # (AUTO) 1.2 K/uL (0.1-1.30); MONOCYTES % (AUTO) 15.5 % (2.0-12.0); NEUTROPHILS # (AUTO) 5.7 K/uL (1.8-8.9); NEUTROPHILS % (AUTO) 72.4 % (43.0-81.0); PLATELET COUNT (AUTO) 122 K/uL (150-450); RED BLOOD CELL COUNT(AUTO) 3.14 MIL/uL (4.5-6.0); WHITE BLOOD COUNT (AUTO) 7.8 K/uL (4.3-11.0)
[2022-03-07 07:44] LABS: BAND % (MANUAL) 2 % (0.0-5.0); EOSINOPHILS % (MANUAL) 3 % (0-4); LYMPHOCYTES % (MANUAL) 8 % (16-48); METAMYELOCYTES % 1 % (0-0); MONOCYTES % (MANUAL) 14 % (0-11.0); MYELOCYTES % 1 % (0-0); NEUTROPHILS % (MANUAL) 71 (42-76)
[2022-03-07 07:46] LABS: CALCIUM, SERUM 8.3 mg/dL (8.5-10.1); CREATININE 4.3 mg/dL (0.6-1.3); MAGNESIUM 2.1 mg/dL (1.8-2.4); PHOSPHORUS 3.9 mg/dL (2.5-4.9); POTASSIUM 3.5 mmol/L (3.5-5.1)
[2022-03-07 08:00] VITALS: BP 154/69
[2022-03-07 08:08] LABS: ABG OXYGEN SATURATION 96.2 % (92.0-98.5); ABG PH 7.418 (7.350-7.450); ABG PO2 85.9 mmHg (75.0-100.0); AaDO2 86.9 mmHg; COHb 0.2 % (0.5-1.5); MetHb 0.6 % (0.0-1.5); O2Hb 95.4 % (94.0-97.0); PEEP,BG 5 cm H2O; SITE, ABG Right Radial; VENT MODE, BG AC 30%; VT, ABG 500 mL
[2022-03-07] MEDS: PANTOPRAZOLE 40 MG/PACK PACK NG SCH (09:06)
[2022-03-07] MEDS: FLUCONAZOLE (100 MG) 100 MG TABLET GT SCH (09:06)
[2022-03-07] MEDS: AMIODARONE HCL 200 MG TABLET GT SCH ×2 (09:06→21:50)
[2022-03-07] MEDS: METOPROLOL TARTRATE INJ 5 MG/5 ML AMPUL IV SCH ×2 (09:07→21:50)
[2022-03-07 12:00] VITALS: BP 136/74
[2022-03-07] MEDS: DIGOXIN 0.25 MG TABLET GT SCH (12:20)
[2022-03-07] MEDS: IV NS 0.9% 1,000 ML IV PRN ×2 (13:22→22:00)
--- NOTE | 2022-03-07 14:16 | NUR ---
RN NOTE PT RECEIVED IN BED. ON MECHANICAL VENT SETTINGS @: AC: 18 TV:500 FIO2: 30% PEEP 5. TOLERATING SETTINGS WELL. PT IS CONFUSED. G-TUBE PATENT AND INTACT RUNNING JEVITY 1.2 AT 30CC/HR. IV ACCESS NOTED ON LEFT UPPER ARM MIDLINE INTACT PATENT. ALL SAFETY MEASURES IMPLEMENTED. WILL CONTINUE TO MONITOR AND ASSESS FOR ANY CHANGES.
--- NOTE | 2022-03-07 15:41 | NUR ---
RN NOTE REPORT GIVEN TO KISHORE FOR VY.
[2022-03-07 16:00] VITALS: BP 136/70
[2022-03-07] MEDS: JEVITY 1.2 CAL 1,000 ML BOTTLE GT PRN (18:11)
[2022-03-07 20:00] VITALS: BP 143/77
--- NOTE | 2022-03-07 20:00 | NUR ---
RN NOTE RECEIVED PT AWAKE ALERT, NODS TO QUESTIONS, DENIES SOB OR PAIN. ON VENT/TRACH. NO DISTRESS NOTED. GT PATENT AND IN PLACE, ON GT FEEDING. NO RESIDUALS NOTED. HOB ELEVATED. ON TELE MONITORING SHOWS AFIB/AFLUTTER WITH HR 97. JOVANNY ML PATENT AND INTACT, NS AT 125ML/HR. GARCIA IN PLACE DRAINING CLEAR YELLOW URINE. ALL SAFETY MEASURES IN PLACE. WILL CONTINUE TO MONITOR.
[2022-03-07] MEDS: ACETAMINOPHEN 650 MG/20.3 ML UDC GT PRN (23:51)
--- NOTE | 2022-03-07 23:51 | NUR ---
RN NOTE PT TEMP 100.0 ORALLY. TYLENOL GIVEN VIA GT. NO CHANGES IN LOC NOTED. WILL CONTINUE TO MONITOR.
[2022-03-08] VITALS (7 sets, daily range): BP systolic 106–146; BP diastolic 44–102
--- NOTE | 2022-03-08 03:35 | NUR ---
RN NOTE PT HAVING CHILLS. PT ALERT, DENIES ANY SOB. COMPLAINED OF GETTING COLD. RECHECKED TEMP RECTALLY, 104.1. NOTIFIED JR. SYSTEMS ADMINISTRATOR CORPSMAN IVET. WITH NEW ORDER TO GIVE ANOTHER TYLENOL VIA GT AND BLOOD CULTURE. COOLING MEASURES APPLIED. WILL CONTINUE TO MONITOR.
[2022-03-08] MEDS ORDERED: ACETAMINOPHEN 650 MG/20.3 ML UDC GT ONE (04:00)
[2022-03-08 04:52] LABS: BASOPHILS # (AUTO) 0.1 K/uL (0.0-0.2); BASOPHILS % (AUTO) 0.5 % (0.0-2.0); EOSINOPHILS % (AUTO) 0.8 % (0.0-6.0); HEMATOCRIT 32 % (39-51); HEMOGLOBIN 9.9 g/dL (13.5-17.5); LYMPHOCYTES # (AUTO) 0.7 K/uL (0.8-4.8); LYMPHOCYTES % (AUTO) 5.8 % (20.0-44.0); MEAN CORPUSCULAR HGB CONC 31 g/dl (31.0-36.0); MEAN CORPUSCULAR VOLUME 90 fL (80-96); MONOCYTES # (AUTO) 1.3 K/uL (0.1-1.30); MONOCYTES % (AUTO) 11.5 % (2.0-12.0); NEUTROPHILS # (AUTO) 9.4 K/uL (1.8-8.9); NEUTROPHILS % (AUTO) 81.4 % (43.0-81.0); PLATELET COUNT (AUTO) 138 K/uL (150-450); RED BLOOD CELL COUNT(AUTO) 3.54 MIL/uL (4.5-6.0); WHITE BLOOD COUNT (AUTO) 11.6 K/uL (4.3-11.0)
[2022-03-08 05:14] LABS: CALCIUM, SERUM 8.3 mg/dL (8.5-10.1); CREATININE 4.8 mg/dL (0.6-1.3); MAGNESIUM 2.1 mg/dL (1.8-2.4); PHOSPHORUS 3.6 mg/dL (2.5-4.9); POTASSIUM 3.7 mmol/L (3.5-5.1)
[2022-03-08] MEDS: IV NS 0.9% 1,000 ML IV PRN ×3 (06:30→22:09)
--- NOTE | 2022-03-08 07:00 | NUR ---
RN NOTE PT LATEST TEMP 98.8. NO CHANGES IN LOC. PT ABLE TO FOLLOW SOME COMMANDS. REMAIN AFLUTTER/AFIB ON TELE MONITOR WITH HR 115. PT TOLERATING GT FEEDING. KEPT HOB ELEVATED. NO RESIDUALS NOTED. GARCIA DRAINING YELLOW URINE, 300 ML OUTPUT. WILL ENDORSE TO NEXT SHIFT NURSE FOR VY.
--- NOTE | 2022-03-08 07:30 | NUR ---
RN NOTES PT FOUND SEMI FOWLERS DISPLAYING NO S/S OF DISTRESS, PT ENDORSES NO PAIN AND BILATERAL RISE AND FALL OF THE CHEST OBSERVED. PT IN ELMO-BED. L UA MIDLINE IS PATIENT AND INTACT. 0 RESIDUAL MEASURED VIA PEG. GARCIA CATH BELOW PATIENT DRAINING BY GRAVITY. VSS, RN WILL MONITOR AND TREAT THROUGHOUT SHIFT. SAFETY MEASURES IN PLACE, BED LOCKED AND IN LOWEST POSITION, SIDE RAILS UPX2, CALL LIGHT WITHIN REACH, PT INSTRUCTED TO CALL FOR ASSISTANCE.
[2022-03-08 07:44] LABS: BILIRUBIN,URINE NEGATIVE (NEGATIVE); COLOR,URINE YELLOW (YELLOW); LEUKOCYTE ESTERASE ,URINE SMALL (NEGATIVE); NITRITE, URINE NEGATIVE (NEGATIVE); PH,URINE 5.5 (5.0-8.0); PROTEIN,URINE 100 mg/dl (NEGATIVE); UGLUCOSE NEGATIVE (NEGATIVE); UROBILINOGEN,URINE 0.2 EU/dL (0.2)
[2022-03-08 08:13] LABS: BACTERIA,URINE Many /HPF (None Seen)
[2022-03-08 08:15] LABS: WBC,URINE 21-50 /HPF (0-3); YEAST,URINE Many /HPF (None Seen)
[2022-03-08 08:16] LABS: SQUAMOUS EPITHELIAL CELL,UR Moderate /HPF (None Seen)
[2022-03-08] MEDS: METOPROLOL TARTRATE INJ 5 MG/5 ML AMPUL IV SCH ×2 (09:04→21:46)
[2022-03-08] MEDS: FLUCONAZOLE (100 MG) 100 MG TABLET GT SCH (09:04)
[2022-03-08] MEDS: PANTOPRAZOLE 40 MG/PACK PACK NG SCH (09:04)
[2022-03-08] MEDS: AMIODARONE HCL 200 MG TABLET GT SCH ×2 (09:05→21:47)
[2022-03-08] MEDS: JEVITY 1.2 CAL 1,000 ML BOTTLE GT PRN ×2 (10:51→23:54)
[2022-03-08] MEDS: DIGOXIN 0.25 MG TABLET GT SCH (13:05)
--- NOTE | 2022-03-08 17:00 | NUR ---
MD VISIT MD ATTENDED TO PT, PERFORMED ASSESSMENT. RN GAVE REPORT OF URINE OUTPUT AND FLUID INTAKE. MD GAVE ORDER: 80 MG LASIX IV ONE TIME. RN ACKNOWLEDGED ORDER AND WILL EXECUTE DIRECTED.
[2022-03-08] MEDS ORDERED: FUROSEMIDE 100 MG/10 ML VIAL IV ONE (17:30)
--- NOTE | 2022-03-08 19:30 | NUR ---
RN NOTES PT FOUND SEMI FOWLERS DISPLAYING NO S/S OF DISTRESS, PT ENDORSES NO PAIN AND BILATERAL RISE AND FALL OF THE CHEST OBSERVED. PT IN ELMO-BED. L UA MIDLINE IS PATIENT AND INTACT. 0 RESIDUAL MEASURED VIA PEG. GARCIA CATH BELOW PATIENT DRAINING BY GRAVITY. SBAR AND REPORT GIVEN TO RADIO DISPATCHER, ALL QUESTIONS ANSWERED. SAFETY MEASURES IN PLACE, BED LOCKED AND IN LOWEST POSITION, SIDE RAILS UPX2, CALL LIGHT WITHIN REACH, PT INSTRUCTED TO CALL FOR ASSISTANCE. PT ENDORSED IN STABLE CONDITION FOR VY.
[2022-03-09] VITALS: BP 147/74
[2022-03-09 04:00] VITALS: BP 130/70
[2022-03-09 06:14] LABS: CALCIUM, SERUM 7.9 mg/dL (8.5-10.1); CREATININE 5.1 mg/dL (0.6-1.3); POTASSIUM 3.5 mmol/L (3.5-5.1)
[2022-03-09 06:19] LABS: BASOPHILS # (AUTO) 0.1 K/uL (0.0-0.2); BASOPHILS % (AUTO) 0.5 % (0.0-2.0); EOSINOPHILS % (AUTO) 2.3 % (0.0-6.0); HEMATOCRIT 26 % (39-51); HEMOGLOBIN 8.2 g/dL (13.5-17.5); LYMPHOCYTES # (AUTO) 0.6 K/uL (0.8-4.8); LYMPHOCYTES % (AUTO) 5.7 % (20.0-44.0); MEAN CORPUSCULAR HGB CONC 32 g/dl (31.0-36.0); MEAN CORPUSCULAR VOLUME 90 fL (80-96); MONOCYTES # (AUTO) 1.4 K/uL (0.1-1.30); MONOCYTES % (AUTO) 12.4 % (2.0-12.0); NEUTROPHILS # (AUTO) 8.8 K/uL (1.8-8.9); NEUTROPHILS % (AUTO) 79.1 % (43.0-81.0); RED BLOOD CELL COUNT(AUTO) 2.87 MIL/uL (4.5-6.0); WHITE BLOOD COUNT (AUTO) 11.1 K/uL (4.3-11.0)
[2022-03-09] MEDS: IV NS 0.9% 1,000 ML IV PRN ×2 (06:24→21:32)
[2022-03-09 08:00] VITALS: BP 118/75
[2022-03-09] MEDS: AMIODARONE HCL 200 MG TABLET GT SCH ×2 (08:33→21:32)
[2022-03-09] MEDS: FLUCONAZOLE (100 MG) 100 MG TABLET GT SCH (08:33)
[2022-03-09] MEDS: METOPROLOL TARTRATE INJ 5 MG/5 ML AMPUL IV SCH ×2 (08:33→21:31)
[2022-03-09] MEDS: PANTOPRAZOLE 40 MG/PACK PACK NG SCH (08:33)
[2022-03-09 12:00] VITALS: BP 126/67
[2022-03-09] MEDS: DIGOXIN 0.25 MG TABLET GT SCH (13:11)
[2022-03-09 13:16] LABS: PLATELET COUNT (AUTO) 86 K/uL (150-450)
[2022-03-09 16:00] VITALS: BP 133/77
--- NOTE | 2022-03-09 19:11 | NUR ---
RN NOTES PT FOUND SEMI FOWLERS DISPLAYING NO S/S OF DISTRESS, PT ENDORSES NO PAIN AND BILATERAL RISE AND FALL OF THE CHEST OBSERVED. PT IN ELMO-BED. L UA MIDLINE IS PATIENT AND INTACT. 0 RESIDUAL MEASURED VIA PEG. GARCIA CATH BELOW PATIENT DRAINING BY GRAVITY. SBAR AND REPORT GIVEN TO ENGINEER TECHNICIAN, ALL QUESTIONS ANSWERED. SAFETY MEASURES IN PLACE, BED LOCKED AND IN LOWEST POSITION, SIDE RAILS UPX2, CALL LIGHT WITHIN REACH, PT INSTRUCTED TO CALL FOR ASSISTANCE. PT ENDORSED IN STABLE CONDITION FOR VY.
[2022-03-09 20:00] VITALS: BP 137/77
[2022-03-09] MEDS: JEVITY 1.2 CAL 1,000 ML BOTTLE GT PRN (21:32)
[2022-03-10] VITALS: BP 110/67
[2022-03-10] MEDS: FUROSEMIDE 40 MG/4 ML VIAL IV SCH ×3 (00:48→17:08)
[2022-03-10 04:00] VITALS: BP 129/65
[2022-03-10] MEDS: IV NS 0.9% 1,000 ML IV PRN ×3 (06:13→22:39)
--- NOTE | 2022-03-10 07:30 | NUR ---
RN OPENING NOTE PT AWAKE AND ALERT IN BED. PT A/0X2. PT FOUND SEMI FOWLERS DISPLAYING NO S/S OF DISTRESS, PT ENDORSES NO PAIN AND BILATERAL RISE AND FALL OF THE CHEST OBSERVED. PT IN ELMO-BED. L UA MIDLINE IS PATIENT AND INTACT. GARCIA CATH BELOW PATIENT DRAINING BY GRAVITY. PT ON TRACH VENT TOLERATING PRESCRIBED VENT SETTINGS WELL WITH SP02 OF 99%. SAFETY MEASURES IN PLACE, BED LOCKED AND IN LOWEST POSITION, SIDE RAILS UPX2, CALL LIGHT WITHIN REACH, PT INSTRUCTED TO CALL FOR ASSISTANCE. WILL CONTINUE TO MONITOR.
[2022-03-10 07:43] LABS: BASOPHILS % (AUTO) 0.5 % (0.0-2.0); EOSINOPHILS % (AUTO) 1.1 % (0.0-6.0); HEMATOCRIT 26 % (39-51); LYMPHOCYTES # (AUTO) 0.4 K/uL (0.8-4.8); LYMPHOCYTES % (AUTO) 4.6 % (20.0-44.0); MEAN CORPUSCULAR HGB CONC 31 g/dl (31.0-36.0); MEAN CORPUSCULAR VOLUME 90 fL (80-96); MONOCYTES # (AUTO) 0.9 K/uL (0.1-1.30); MONOCYTES % (AUTO) 9.4 % (2.0-12.0); NEUTROPHILS # (AUTO) 7.8 K/uL (1.8-8.9); NEUTROPHILS % (AUTO) 84.4 % (43.0-81.0); PLATELET COUNT (AUTO) 83 K/uL (150-450); RED BLOOD CELL COUNT(AUTO) 2.83 MIL/uL (4.5-6.0); WHITE BLOOD COUNT (AUTO) 9.3 K/uL (4.3-11.0)
[2022-03-10 07:45] LABS: CALCIUM, SERUM 7.7 mg/dL (8.5-10.1); CREATININE 5.4 mg/dL (0.6-1.3); POTASSIUM 3.6 mmol/L (3.5-5.1)
[2022-03-10 08:00] VITALS: BP 147/76
[2022-03-10] MEDS: PANTOPRAZOLE 40 MG/PACK PACK NG SCH (09:23)
[2022-03-10] MEDS: FLUCONAZOLE (100 MG) 100 MG TABLET GT SCH (09:23)
[2022-03-10] MEDS: AMIODARONE HCL 200 MG TABLET GT SCH ×2 (09:25→21:43)
[2022-03-10] MEDS: METOPROLOL TARTRATE INJ 5 MG/5 ML AMPUL IV SCH ×2 (09:25→21:44)
[2022-03-10 10:31] LABS: BAND % (MANUAL) 10 % (0.0-5.0); EOSINOPHILS % (MANUAL) 2 % (0-4); LYMPHOCYTES % (MANUAL) 8 % (16-48); METAMYELOCYTES % 1 % (0-0); MONOCYTES % (MANUAL) 7 % (0-11.0); NEUTROPHILS % (MANUAL) 72 (42-76)
[2022-03-10] MEDS: ACETAMINOPHEN 650 MG/20.3 ML UDC GT PRN ×2 (11:37→18:22)
[2022-03-10 12:00] VITALS: BP 117/61
[2022-03-10] MEDS: JEVITY 1.2 CAL 1,000 ML BOTTLE GT PRN (12:07)
[2022-03-10] MEDS: DIGOXIN 0.25 MG TABLET GT SCH (13:30)
[2022-03-10] MEDS: PROSOURCE / PROSTAT (PYXIS) 30 ML UDC GT SCH ×2 (14:10→17:08)
[2022-03-10] MEDS: NEPRO 1,000 ML BOTTLE GT SCH (14:11)
[2022-03-10 16:00] VITALS: BP 121/79
--- NOTE | 2022-03-10 18:31 | NUR ---
RN CLOSING NOTE PT REMAINED STABLE THROUGHOUT SHIFT. PT AWAKE AND ALERT IN BED. PT A/0X2. PT SEMI FOWLERS DISPLAYING NO S/S OF DISTRESS, PT ENDORSES NO PAIN AND BILATERAL RISE AND FALL OF THE CHEST OBSERVED. PT IN ELMO-BED. L UA MIDLINE IS PATIENT AND INTACT RUNNING NS @ 125 ML/HR. PT HAS PEG TUBE RUNNING NEPRO @ 45 ML/HR INTACT AND PATENT TOLERATING WELL WITH 10ML RESIDUAL NOTED.GARCIA CATH BELOW PATIENT DRAINING BY GRAVITY INTACT AND PATENT. PT ON TRACH VENT TOLERATING PRESCRIBED VENT SETTINGS WELL WITH SP02 OF 96%. SAFETY MEASURES IN PLACE, BED LOCKED AND IN LOWEST POSITION, SIDE RAILS UPX2, CALL LIGHT WITHIN REACH, PT INSTRUCTED TO CALL FOR ASSISTANCE. WILL ENDORSE TO JEWEL BEARING FACER RN.
--- NOTE | 2022-03-10 19:00 | NUR ---
RN NOTE RECEIVED PATIENT IN BED, AO X 2, IN NO ACUTE DISTRESS AT THIS TIME. ON BIVONA #8 TRACH TO MECHANICAL VENT WITH SETTINGS PRESCRIBED, SATURATION AT 99%, AFIB/AFLUTTER ON THE MONITOR, HR IS 84. NOTED IV SITE AT LFA 20G, AND JOVANNY MIDLINE, ALL HUBS PATENT AND FLUSHING WELL, NO S/S OF INFECTION OR INFILTRATION WITH NS INFUSING AT 125 ML/HR. NOTED GTUBE INTACT POSITIVE PLACEMENT NOTED, NO RESIDUAL, WITH TUBE FEEDING OF NEPRO AT 45 ML/HR. GARCIA CATHETER DRAINING BY GRAVITY TO A CLEAR, YELLOW OUTPUT. SAFETY MEASURES IMPLEMENTED. PATIENT BED ALARM IS ON. HEAD OF BED ELEVATED. BED IS LOCKED, IN LOWEST POSITION AND SIDE RAILS UP. CALL LIGHT WITHIN REACH OF THE PATIENT. WILL CONTINUE TO MONITOR AND REASSESS FOR ANY CHANGES.
[2022-03-10 20:00] VITALS: BP 110/67
[2022-03-11] VITALS: BP 124/88
[2022-03-11 04:00] VITALS: BP 136/84
[2022-03-11 07:27] LABS: CALCIUM, SERUM 8.1 mg/dL (8.5-10.1); CREATININE 5.3 mg/dL (0.6-1.3); POTASSIUM 3.7 mmol/L (3.5-5.1)
[2022-03-11 07:56] LABS: BASOPHILS % (AUTO) 0.5 % (0.0-2.0); EOSINOPHILS % (AUTO) 1.4 % (0.0-6.0); HEMATOCRIT 25 % (39-51); HEMOGLOBIN 8.1 g/dL (13.5-17.5); LYMPHOCYTES # (AUTO) 0.9 K/uL (0.8-4.8); LYMPHOCYTES % (AUTO) 11.2 % (20.0-44.0); MEAN CORPUSCULAR HGB CONC 32 g/dl (31.0-36.0); MEAN CORPUSCULAR VOLUME 90 fL (80-96); MONOCYTES # (AUTO) 0.9 K/uL (0.1-1.30); MONOCYTES % (AUTO) 12.2 % (2.0-12.0); NEUTROPHILS # (AUTO) 5.7 K/uL (1.8-8.9); NEUTROPHILS % (AUTO) 74.7 % (43.0-81.0); PLATELET COUNT (AUTO) 77 K/uL (150-450); RED BLOOD CELL COUNT(AUTO) 2.79 MIL/uL (4.5-6.0); WHITE BLOOD COUNT (AUTO) 7.6 K/uL (4.3-11.0)
[2022-03-11 08:00] VITALS: BP 130/83
[2022-03-11] MEDS: PANTOPRAZOLE 40 MG/PACK PACK NG SCH (08:24)
[2022-03-11] MEDS: FLUCONAZOLE (100 MG) 100 MG TABLET GT SCH (08:24)
[2022-03-11] MEDS: FUROSEMIDE 40 MG/4 ML VIAL IV SCH ×2 (08:25→17:12)
[2022-03-11] MEDS: METOPROLOL TARTRATE INJ 5 MG/5 ML AMPUL IV SCH ×2 (08:26→21:26)
[2022-03-11] MEDS: AMIODARONE HCL 200 MG TABLET GT SCH ×2 (08:27→21:28)
[2022-03-11] MEDS: PROSOURCE / PROSTAT (PYXIS) 30 ML UDC GT SCH ×3 (08:29→17:13)
--- NOTE | 2022-03-11 08:59 | NUR ---
RN OPENING NOTE PATIENT ENDORSED BY OUTGOING NURSE FOR CONTINUITY OF CARE. PATIENT IS ON TELE [employer] A FIB/ AFLUTTER @ 71 Hr. PT AWAKE AND ALERT IN BED. PT A/0X2. PT FOUND SEMI FOWLERS DISPLAYING NO S/S OF DISTRESS, PT ENDORSES NO PAIN AND BILATERAL RISE AND FALL OF THE CHEST OBSERVED. PT IN ELMO-BED. L UA MIDLINE IS PATIENT AND INTACT. GARCIA CATH BELOW PATIENT DRAINING BY GRAVITY. PT ON TRACH VENT TOLERATING PRESCRIBED VENT SETTINGS WELL WITH SP02 OF 99%. SAFETY MEASURES IN PLACE, BED LOCKED AND IN LOWEST POSITION, SIDE RAILS UPX2, CALL LIGHT WITHIN REACH, PT INSTRUCTED TO CALL FOR ASSISTANCE. WILL CONTINUE TO MONITOR.
[2022-03-11 12:00] VITALS: BP 131/82
[2022-03-11] MEDS: DIGOXIN 0.25 MG TABLET GT SCH (12:55)
[2022-03-11 16:00] VITALS: BP 135/87
[2022-03-11] MEDS: IV NS 0.9% 1,000 ML IV PRN (17:01)
--- NOTE | 2022-03-11 18:58 | NUR ---
RN CLOSING NOTE PATIENT ENDORSED TO ONCOMING NURSE FOR CONTINUITY OF CARE. PT REMAINED STABLE THROUGHOUT SHIFT. PT AWAKE AND ALERT IN BED. PT A/0X2. PT SEMI FOWLERS DISPLAYING NO S/S OF DISTRESS, PT ENDORSES NO PAIN AND BILATERAL RISE AND FALL OF THE CHEST OBSERVED. PT IN ELMO-BED. L UA MIDLINE IS PATIENT AND INTACT RUNNING NS @ 100 ML/HR. PT HAS PEG TUBE RUNNING NEPRO @ 45 ML/HR INTACT AND PATENT TOLERATING WELL WITH 5ML RESIDUAL NOTED.GARCIA CATH BELOW PATIENT DRAINING BY GRAVITY INTACT AND PATENT. PT ON TRACH VENT TOLERATING PRESCRIBED VENT SETTINGS WELL WITH SP02 OF 98%. SAFETY MEASURES IN PLACE, BED LOCKED AND IN LOWEST POSITION, SIDE RAILS UPX2, CALL LIGHT WITHIN REACH.WILL ENDORSE TO PM SHIFT FOR VY.
--- NOTE | 2022-03-11 19:30 | NUR ---
RN OPENING NOTES RECEIVED PT IN BED, AWAKE, A/0 X 2. PT PLACED IN FOWLERS POSITION, NO S/S OF ACUTE DISTRESS NOTED AT THIS TIME. PT ON TRACH VENT, TOLERATING VENT SETTINGS WELL WITH O2 SAT OF 99%. IV LINE NOTED AT JOVANNY MIDLINE, PATENT, INTACT AND FLUSHES WELL, RUNNING NS AT 100 ML/HR. NO SIGN OF INFILTRATION NOTED. PT ON GTF NEPRO AT 45 ML/HR, TOLERATING WELL. NO RESIDUAL. PT ON FC BELOW PATIENT DRAINING WELL BY GRAVITY. KEPT PT CLEAN AND DRY. ALL SAFETY MEASURES IN PLACE, BED LOCKED AND IN LOWEST POSITION, SIDE RAILS UPX2, CALL LIGHT WITHIN REACH. WILL CONTINUE TO MONITOR AND REASSESS FOR ANY CHANGES.
[2022-03-11 20:00] VITALS: BP 148/71
[2022-03-11] MEDS: ACETAMINOPHEN 650 MG/20.3 ML UDC GT PRN (22:40)
[2022-03-12] VITALS (8 sets, daily range): BP systolic 146–188; BP diastolic 77–94
[2022-03-12] MEDS: IV NS 0.9% 1,000 ML IV PRN ×2 (03:36→13:26)
[2022-03-12] MEDS: MORPHINE SULFATE INJ 4 MG/ML DISP.SYRIN IV PRN ×2 (04:27→20:35)
--- NOTE | 2022-03-12 04:30 | NUR ---
RN NOTES PT COMPLAINING OF PAIN 08/06. GAVE PT MORPHINE PRN MEDS VIA GT AT [id number]. WILL CONTINUE TO MONITOR TILL THE END OF MY SHIFT.
[2022-03-12 06:41] LABS: BASOPHILS # (AUTO) 0.1 K/uL (0.0-0.2); BASOPHILS % (AUTO) 0.7 % (0.0-2.0); EOSINOPHILS % (AUTO) 1.1 % (0.0-6.0); HEMATOCRIT 27 % (39-51); HEMOGLOBIN 8.3 g/dL (13.5-17.5); LYMPHOCYTES # (AUTO) 1.3 K/uL (0.8-4.8); MEAN CORPUSCULAR HGB CONC 31 g/dl (31.0-36.0); MEAN CORPUSCULAR VOLUME 90 fL (80-96); MONOCYTES # (AUTO) 1.2 K/uL (0.1-1.30); MONOCYTES % (AUTO) 13.8 % (2.0-12.0); NEUTROPHILS % (AUTO) 69.4 % (43.0-81.0); PLATELET COUNT (AUTO) 79 K/uL (150-450); RED BLOOD CELL COUNT(AUTO) 2.97 MIL/uL (4.5-6.0); WHITE BLOOD COUNT (AUTO) 8.6 K/uL (4.3-11.0)
[2022-03-12 07:02] LABS: CALCIUM, SERUM 8.3 mg/dL (8.5-10.1); CREATININE 5.4 mg/dL (0.6-1.3); POTASSIUM 3.2 mmol/L (3.5-5.1)
--- NOTE | 2022-03-12 07:24 | NUR ---
RN CLOSING NOTES PT REMAINED IN BED, A/O X 2. PT IS NON VERBAL. ON BIVONA VENT, TOLERATING VENT SETTINGS WELL. NO S/SX OF ACUTE DISTRESS NOTED. PT IS IN ELMO-BED. IV LINE NOTED IN JOVANNY MIDLINE PATENT AND INTACT WITH NO SIGNS OF INFILTRATION NOTED. ON GTF, NEPRO AT 45 ML/HR. TOLERATING WELL, WITH NO RESIDUALS. FC IS IN PLACE DRAINING WELL IN GRAVITY. PT HAD FEVER DURING THE NIGHT,100.4. GAVE TYLENOL PRN ORDERED. GAVE PT ICE COLD BATH TO HELP LOWER THE TEMP. ALL DUE MEDS GIVEN. KEPT PT DRY, CLEAN AND COMFORTABLE. TURNED AND REPOSITIONED. ALL SAFETY MEASURES IN PLACE, BED LOCKED AND IN LOWEST POSITION, SIDE RAILS UPX2, CALL LIGHT WITHIN REACH, WILL ENDORSE TO AM SHIFT NURSE FOR VY.
--- NOTE | 2022-03-12 07:30 | NUR ---
RN OPENING NOTE RECEIVED PT IN BED RESTING, A/O X 2. PT IS NON VERBAL. ON BIVONA VENT, TOLERATING VENT SETTINGS WELL WITH SPO2 OF 99%. NO S/SX OF ACUTE DISTRESS NOTED. PT IS IN ELMO-BED. IV LINE NOTED IN JOVANNY MIDLINE PATENT AND INTACT WITH NO SIGNS OF INFILTRATION NOTED. ON GTF, NEPRO AT 45 ML/HR. FC IS IN PLACE DRAINING WELL IN GRAVITY. ALL SAFETY MEASURES IN PLACE, BED LOCKED AND IN LOWEST POSITION, SIDE RAILS UPX2, CALL LIGHT WITHIN REACH, WILL CONTINUE TO MONITOR.
[2022-03-12] MEDS: PANTOPRAZOLE 40 MG/PACK PACK NG SCH (08:07)
[2022-03-12] MEDS: FLUCONAZOLE (100 MG) 100 MG TABLET GT SCH (08:07)
[2022-03-12] MEDS: FUROSEMIDE 40 MG/4 ML VIAL IV SCH ×2 (08:07→16:57)
[2022-03-12] MEDS: AMIODARONE HCL 200 MG TABLET GT SCH ×2 (08:07→21:53)
[2022-03-12] MEDS: METOPROLOL TARTRATE INJ 5 MG/5 ML AMPUL IV SCH ×2 (08:07→21:54)
[2022-03-12] MEDS: PROSOURCE / PROSTAT (PYXIS) 30 ML UDC GT SCH ×3 (09:26→16:57)
[2022-03-12] MEDS ORDERED: VANCOMYCIN 1.25 GM in IV D5W 250 ML IV SCH (10:00)
[2022-03-12] MEDS ORDERED: PIPERACILLIN /TAZOBACTAM 4.5 G in IV D5W 50 ML IV SCH (12:00)
[2022-03-12] MEDS: ZOSYN IVPB 2.25 G in IV D5W 50ml IV SCH ×2 (12:02→17:11)
[2022-03-12] MEDS: NITROGLYCERIN 30 GM TUBE TP SCH ×2 (12:03→21:54)
[2022-03-12] MEDS: DIGOXIN 0.25 MG TABLET GT SCH (13:16)
[2022-03-12] MEDS: MICAFUNGIN SODIUM 100 MG in IV NS 0.9% 100 ML IV SCH (13:31)
--- NOTE | 2022-03-12 18:39 | NUR ---
RN CLOSING NOTE PT REMAINED STABLE THROUGHOUT SHIFT. PT IN BED RESTING, A/O X 2. PT IS NON VERBAL. ON BIVONA VENT, TOLERATING VENT SETTINGS WELL WITH SPO2 OF 98%. NO S/SX OF ACUTE DISTRESS NOTED. PT IS IN ELMO-BED. IV LINE NOTED IN JOVANNY MIDLINE PATENT AND INTACT WITH NO SIGNS OF INFILTRATION NOTED. ON GTF, NEPRO AT 45 ML/HR. FC IS IN PLACE DRAINING WELL IN GRAVITY. ALL SAFETY MEASURES IN PLACE, BED LOCKED AND IN LOWEST POSITION, SIDE RAILS UPX2, CALL LIGHT WITHIN REACH, WILL ENDORSE TO CUSTOM APPLICATOR RN.
--- NOTE | 2022-03-12 19:35 | NUR ---
RN NOTES RECEIVED PT FOR CONTINUITY OF CARE. PATIENT A/O2-3 IN NO S/SX OF ACUTE DISTRESS AT THIS TIME; CURRENTLY ON MECHANICAL VENT; SETTING PRESCRIBED, WITH 02 SAT >95% AT THIS TIME. NOTED IV SITE ON L UA MID#20 & L FA#20;BOTH PATENT, INTACT AND FLUSHING WELL; NO S/S OF INFECTION OR INFILTRATION. PT ALSO HAS ALL SECURED AND INTACT NO SIGNS OF INFECTION. WITH IV FLUID RUNNING ORDERED. WITH GTUBE SECURED, INTACT AND FLUSHING WELL. FEEDING RUNNING PER MD ORDER. WILL ENSURE SAFETY MEASURES WITHIN THE SHIFT. PATIENT BED ALARM IS ON. HEAD OF BED ELEVATED. BED IS LOCKED, IN LOWEST POSITION AND SIDE RAILS UP. CALL LIGHT WITHIN REACH OF THE PATIENT. APPLICABLE ISOLATION PRECAUTIONS IN PLACE. WILL CONTINUE TO MONITOR AND REASSESS FOR ANY CHANGES AND WILL CARRY OUT ANY ONGOING AND ACTIVE MD ORDER.
[2022-03-13] VITALS: BP 145/86
[2022-03-13] MEDS: IV NS 0.9% 1,000 ML IV PRN ×2 (00:01→19:55)
[2022-03-13] MEDS: ZOSYN IVPB 2.25 G in IV D5W 50ml IV SCH ×4 (00:31→17:04)
--- NOTE | 2022-03-13 01:50 | NUR ---
RN NOTES NOTED PT'S TRACH NOT FUNCTIONING WELL; JOHAN COOK KEEPS ON BEEPING. ALL CONNECTIONS INTACT AND SECURED. PRODUCTION CONTROL EXPERT MADE AWARE AND COORDINATED WITH RT. RT CAME IN AND ASSESSED. PER RT TRACH TYPE DAMAGED (BIVONA), TROUBLE SHOOT AT THIS TIME TO MAINTAIN FUNCTION. PAGED [place] FOR TANNA DAVID TO COORDINATE FOR POSSIBLE PLAN OF CHANGING TRACH TYPE (PER RT RECOMMENDATION). AWAITING FOR CALLBACK. ONCALL MADE AWARE (DR. KEANE) ADVISED ABOUT SITUATION ,MD ACKNOWLEDGED. WAS ADVISED TO CONTINUE TO MONITOR AND ENDORSE TO AM SHIFT FOR FOLLOW THROUGH. RN ACKNOWLEDGED AND COORDINATED WITH RT.
[2022-03-13 04:00] VITALS: BP 128/71
--- NOTE | 2022-03-13 06:37 | NUR ---
RN CLOSING NOTE: PATIENT REMAINS IN ROOM IN NO SIGNS OF RESPIRATORY DISTRESS, PATIENT STILL ON MECH VENT; SETTINGS PRESCRIBED;TOLERATING WELL SATURATING @ >95% SP02. SAFETY MEASURES IMPLEMENTED, BED IN LOWEST POSITION, LOCKED, SIDE RAILS UP, CALL LIGHT WITHIN REACH. ALL NEEDS AND ORDERS ADDRESSED DURING THE SHIFT. IV ACCESS MAINTAINED INTACT, SECURED AND FLUSHING WELL. ALL DUE MEDS GIVEN ORDERED & SCHEDULED ; PATIENT TOLERATED WELL.OL PATIENT KEPT CLEAN AND COMFORTABLE WITHIN THE SHIFT. PATIENT ENDORSED TO INCOMING SHIFT RN WITH STABLE VITAL SIGN AND FOR CONTINUITY OF CARE, ALSO TO FOLLOW THROUGH WITH RT AND PULMO MD REGARDING TRACH TYPE CHANGE EXISTING TRACH IS DAMAGED PER RT ASSESSMENT.
--- NOTE | 2022-03-13 07:30 | NUR ---
NURSE DISCHARGE OPENING NOTES: RECEIVED PATIENT ON BED, AWAKE AND A/O X2-3. ON MECHANICAL VENT TOLERATING CURRENT SETTINGS. WITH NO COMPLAINTS OF PAIN AT THIS TIME. ON TELE MONITOR CURRENTLY READING A-FLUTTER AT 65BPM. WITH IV ACCESS AT LEFT UPPER ARM MIDLINE AND AT LEFT AC G20 WITH IVF NS AT 100ML/HR INFUSING WELL. WITH GARCIA CATHETER IN PLACED DRAINING CLEAR YELLOW URINE. ON NEPRO FEEDING AT 45ML/HR RUNNING WELL VIA G-TUBE. SAFETY MEASURES IN PLACED. CALL LIGHT WITHIN REACH. BED ON LOWEST LOCKED POSITION, SIDE RAILS UP X2. WILL CONTINUE TO MONITOR.
[2022-03-13 08:00] VITALS: BP 142/77
[2022-03-13] MEDS: AMIODARONE HCL 200 MG TABLET GT SCH ×2 (10:11→21:38)
[2022-03-13] MEDS: FUROSEMIDE 40 MG/4 ML VIAL IV SCH ×2 (10:12→17:04)
[2022-03-13] MEDS: PROSOURCE / PROSTAT (PYXIS) 30 ML UDC GT SCH ×3 (10:12→17:05)
[2022-03-13] MEDS: PANTOPRAZOLE 40 MG/PACK PACK NG SCH (10:12)
[2022-03-13] MEDS: METOPROLOL TARTRATE INJ 5 MG/5 ML AMPUL IV SCH ×2 (10:12→21:38)
[2022-03-13] MEDS: NITROGLYCERIN 30 GM TUBE TP SCH ×2 (10:15→21:39)
[2022-03-13] MEDS: MICAFUNGIN SODIUM 100 MG in IV NS 0.9% 100 ML IV SCH (11:49)
[2022-03-13 12:00] VITALS: BP 150/75
[2022-03-13] MEDS: DIGOXIN 0.25 MG TABLET GT SCH (12:55)
[2022-03-13 14:05] LABS: BASOPHILS % (AUTO) 0.6 % (0.0-2.0); EOSINOPHILS % (AUTO) 1.9 % (0.0-6.0); HEMATOCRIT 26 % (39-51); LYMPHOCYTES # (AUTO) 1.4 K/uL (0.8-4.8); MEAN CORPUSCULAR HGB CONC 31 g/dl (31.0-36.0); MEAN CORPUSCULAR VOLUME 89 fL (80-96); MONOCYTES # (AUTO) 1.3 K/uL (0.1-1.30); MONOCYTES % (AUTO) 14.8 % (2.0-12.0); NEUTROPHILS # (AUTO) 5.8 K/uL (1.8-8.9); NEUTROPHILS % (AUTO) 66.7 % (43.0-81.0); PLATELET COUNT (AUTO) 71 K/uL (150-450); RED BLOOD CELL COUNT(AUTO) 2.87 MIL/uL (4.5-6.0); WHITE BLOOD COUNT (AUTO) 8.7 K/uL (4.3-11.0)
[2022-03-13 14:13] LABS: CREATININE 5.4 mg/dL (0.6-1.3); POTASSIUM 3.2 mmol/L (3.5-5.1)
[2022-03-13 15:52] LABS: BAND % (MANUAL) 1 % (0.0-5.0); EOSINOPHILS % (MANUAL) 1 % (0-4); LYMPHOCYTES % (MANUAL) 16 % (16-48); MONOCYTES % (MANUAL) 6 % (0-11.0); NEUTROPHILS % (MANUAL) 76 (42-76)
[2022-03-13 16:00] VITALS: BP 125/81
--- NOTE | 2022-03-13 19:40 | NUR ---
RN OPENING NOTES: RECEIVED PATIENT IN BED, AWAKE AND A/O X2-3 AND RESPONSIVE TO PAINFUL STIMULI. ON MECHANICAL VENT SETTING AND PT TOLERATING WELL. IV ACCESS AT LEFT UPPER ARM MIDLINE AND AT LEFT AC#20G INTACT AND PATENT. NO S/S OF INFILTRATIONS. RUNNING IVF NS AT 100ML/HR INFUSING WELL. NO C/O PAIN OR DISCOMFORT. NO ACUTE DISTRESS. GARCIA CATHETER IN PLACE, DRAINING CLEAR YELLOW URINE. ON GTUBE FEEDING, NEPRO AT 45ML/HR. ALL SAFETY MEASURES IN PLACE. PLACE CALL LIGHT WITHIN REACH. BED ON LOWEST POSITION AND LOCKED, SIDE RAILS UP X2. WILL CONTINUE TO MONITOR.
[2022-03-13 20:00] VITALS: BP 161/78
[2022-03-14] VITALS: BP 159/89
[2022-03-14 04:00] VITALS: BP 157/89
[2022-03-14] MEDS: IV NS 0.9% 1,000 ML IV PRN ×2 (06:19→20:43)
--- NOTE | 2022-03-14 06:51 | NUR ---
RN CLOSING NOTES: PATIENT IN BED, AWAKE AND A/O X2-3 AND RESPONSIVE TO PAINFUL STIMULI. ON MECHANICAL VENT SETTING AND PT TOLERATING WELL. O2 SAT 100%. IV ACCESS ON LEFT UPPER ARM MIDLINE WAS REMOVED PER 'S ORDER DUE TO FUNGEMIA. AND AT LEFT AC#20G INTACT AND PATENT. NO S/S OF INFILTRATIONS. RUNNING IVF NS AT 100ML/HR INFUSING WELL. NO C/O PAIN OR DISCOMFORT. NO ACUTE DISTRESS. GARCIA CATHETER IN PLACE, DRAINING CLEAR YELLOW URINE. ON GTUBE FEEDING, NEPRO AT 45ML/HR. GTUBE SITE INTACT. ALL SAFETY MEASURES IN PLACE. PLACE CALL LIGHT WITHIN REACH. BED ON LOWEST POSITION AND LOCKED, SIDE RAILS UP X2. WILL ENDORSE TO MORNING SHIFT NURSE.
--- NOTE | 2022-03-14 07:30 | NUR ---
RN NOTES PT FOUND SEMI FOWLERS DISPLAYING NO S/S OF DISTRESS, FLACC = 0 AND BILATERAL RISE AND FALL OF THE CHEST OBSERVED. PEG FOUND < 5 ML RESIDUAL. L AC 20G IS PATIENT AND INTACT. GARCIA CATH BELOW PATIENT DRAINING BY GRAVITY. DRESSING ON R FOOT IS CLEAN AND DRY. RN WILL MONITOR AND TREAT THROUGHOUT SHIFT. SAFETY MEASURES IN PLACE, ELMO-BED LOCKED AND IN LOWEST POSITION, SIDE RAILS UPX2, CALL LIGHT WITHIN REACH, PT INSTRUCTED TO CALL FOR ASSISTANCE.
[2022-03-14 08:00] VITALS: BP 162/80
[2022-03-14 08:33] LABS: BASOPHILS # (AUTO) 0.1 K/uL (0.0-0.2); BASOPHILS % (AUTO) 0.6 % (0.0-2.0); EOSINOPHILS % (AUTO) 4.2 % (0.0-6.0); HEMATOCRIT 24 % (39-51); HEMOGLOBIN 7.8 g/dL (13.5-17.5); LYMPHOCYTES # (AUTO) 1.6 K/uL (0.8-4.8); LYMPHOCYTES % (AUTO) 17.8 % (20.0-44.0); MEAN CORPUSCULAR HGB CONC 32 g/dl (31.0-36.0); MEAN CORPUSCULAR VOLUME 87 fL (80-96); MONOCYTES # (AUTO) 1.2 K/uL (0.1-1.30); MONOCYTES % (AUTO) 13.9 % (2.0-12.0); NEUTROPHILS # (AUTO) 5.6 K/uL (1.8-8.9); NEUTROPHILS % (AUTO) 63.5 % (43.0-81.0); PLATELET COUNT (AUTO) 75 K/uL (150-450); RED BLOOD CELL COUNT(AUTO) 2.79 MIL/uL (4.5-6.0); WHITE BLOOD COUNT (AUTO) 8.9 K/uL (4.3-11.0)
[2022-03-14 08:47] LABS: CALCIUM, SERUM 8.2 mg/dL (8.5-10.1); CREATININE 5.3 mg/dL (0.6-1.3)
[2022-03-14] MEDS: FUROSEMIDE 40 MG/4 ML VIAL IV SCH ×2 (09:07→16:46)
[2022-03-14] MEDS: PROSOURCE / PROSTAT (PYXIS) 30 ML UDC GT SCH ×3 (09:07→16:46)
[2022-03-14] MEDS: METOPROLOL TARTRATE INJ 5 MG/5 ML AMPUL IV SCH ×2 (09:07→20:41)
[2022-03-14] MEDS: AMIODARONE HCL 200 MG TABLET GT SCH ×2 (09:08→20:41)
[2022-03-14] MEDS: NITROGLYCERIN 30 GM TUBE TP SCH ×2 (09:08→20:42)
[2022-03-14] MEDS: PANTOPRAZOLE 40 MG/PACK PACK NG SCH (09:08)
[2022-03-14] MEDS: POTASSIUM CHLORIDE 20 MEQ POWDER PACKET GT SCH ×3 (10:16→12:17)
[2022-03-14 12:00] VITALS: BP 172/78
[2022-03-14] MEDS: DIGOXIN 0.25 MG TABLET GT SCH (12:17)
[2022-03-14] MEDS: MICAFUNGIN SODIUM 100 MG in IV NS 0.9% 100 ML IV SCH (12:18)
[2022-03-14 16:00] VITALS: BP 128/82
[2022-03-14] MEDS: NEPRO 1,000 ML BOTTLE GT SCH (16:46)
--- NOTE | 2022-03-14 19:10 | NUR ---
RN NOTE RECEIVED PATIENT IN BED ON MECHANICAL VENT ALERT ORIENTEDX2 NOTES BY HEAD ON G-TUBE FEEDING NEPRO 1.8 45CC/HR CHECKED PLACEMENT NO RESIDUAL NOTED IV SITE IS ON LEFT AC INTACT PATENT,GARCIA CATHETER IN PLACE URINE DRAINING BY GRAVITY,SAFETY MEASURE IMPLEMENT,HEAD OF THE BED ELEVATED ALL THE TIME,BED IN LOW POSITION AND LOCKED,CONTINUE TO MONITOR.
--- NOTE | 2022-03-14 19:30 | NUR ---
RN NOTES PT FOUND SEMI FOWLERS DISPLAYING NO S/S OF DISTRESS, FLACC = 0 AND BILATERAL RISE AND FALL OF THE CHEST OBSERVED. PEG FOUND < 5 ML RESIDUAL. L AC 20G IS PATIENT AND INTACT. GARCIA CATH BELOW PATIENT DRAINING BY GRAVITY. DRESSING ON R FOOT IS CLEAN AND DRY. SBAR AND REPORT GIVEN TO BALLPOINT PEN CARTRIDGE TESTER RN, ALL QUESTIONS ANSWERED. SAFETY MEASURES IN PLACE, ELMO-BED LOCKED AND IN LOWEST POSITION, SIDE RAILS UPX2, CALL LIGHT WITHIN REACH, PT INSTRUCTED TO CALL FOR ASSISTANCE. PT ENDORSED IN STABLE CONDITION FOR VY.
[2022-03-14 20:00] VITALS: BP 138/71
[2022-03-15] VITALS: BP 149/79
[2022-03-15 04:00] VITALS: BP 158/87
[2022-03-15] MEDS: HYDROCODONE/APAP 5/325MG TABLET GT PRN (05:20)
--- NOTE | 2022-03-15 05:25 | NUR ---
RN NOTE NORCO 5-325MG PRN GIVEN FOR PAIN 06/05 CONTINUE TO MONITOR.
--- NOTE | 2022-03-15 06:30 | NUR ---
RN NOTE PATIENT SLEEPING COMFORTABLY IN BED NO FACE GRIMACING/NO PAIN CONTINUE TO MONITOR
--- NOTE | 2022-03-15 06:44 | NUR ---
RN NOTE PATIENT REMAINS ALERT ORIENTED X2-3 ON MECHANICAL VENT,ON G-TUBE FEEDING,NO SOB NOT ACUTE DISTRESS NOTED,ALL DUE MEDS GIVEN MD ORDERED KEPT CLEAN AND DRY ALL THE TIME,TURNED AND REPOSITIONED EVERY 2 HOURS ALL NEEDS MET,ENDORSE NEXT COMING SHIFT FOR CONTINUATION OF CARE.
[2022-03-15 07:14] LABS: CALCIUM, SERUM 8.7 mg/dL (8.5-10.1); CREATININE 4.9 mg/dL (0.6-1.3); POTASSIUM 3.3 mmol/L (3.5-5.1)
[2022-03-15 07:16] LABS: BASOPHILS # (AUTO) 0.1 K/uL (0.0-0.2); BASOPHILS % (AUTO) 0.5 % (0.0-2.0); EOSINOPHILS % (AUTO) 4.6 % (0.0-6.0); HEMATOCRIT 25 % (39-51); HEMOGLOBIN 7.7 g/dL (13.5-17.5); LYMPHOCYTES # (AUTO) 1.7 K/uL (0.8-4.8); LYMPHOCYTES % (AUTO) 12.6 % (20.0-44.0); MEAN CORPUSCULAR HGB CONC 32 g/dl (31.0-36.0); MEAN CORPUSCULAR VOLUME 90 fL (80-96); MONOCYTES # (AUTO) 1.2 K/uL (0.1-1.30); MONOCYTES % (AUTO) 9.4 % (2.0-12.0); NEUTROPHILS # (AUTO) 9.6 K/uL (1.8-8.9); NEUTROPHILS % (AUTO) 72.9 % (43.0-81.0); PLATELET COUNT (AUTO) 106 K/uL (150-450); RED BLOOD CELL COUNT(AUTO) 2.73 MIL/uL (4.5-6.0); WHITE BLOOD COUNT (AUTO) 13.2 K/uL (4.3-11.0)
--- NOTE | 2022-03-15 07:37 | NUR ---
RN OPENING NOTE RECEIVED PT IN BED RESTING, A/O X 2. PT IS NON VERBAL. ON BIVONA VENT, TOLERATING VENT SETTINGS WELL WITH SPO2 OF 99%. NO S/SX OF ACUTE DISTRESS NOTED. PT IS IN ELMO-BED. IV LINE NOTED IN LAC PATENT AND INTACT WITH NO SIGNS OF INFILTRATION NOTED RUNNING NS @ 100 ML/HR.. ON GTF, NEPRO AT 45 ML/HR. FC IS IN PLACE DRAINING WELL IN GRAVITY. ALL SAFETY MEASURES IN PLACE, BED LOCKED AND IN LOWEST POSITION, SIDE RAILS UPX2, CALL LIGHT WITHIN REACH, WILL CONTINUE TO MONITOR.
[2022-03-15 08:00] VITALS: BP 179/81
[2022-03-15] MEDS: PANTOPRAZOLE 40 MG/PACK PACK NG SCH (09:01)
[2022-03-15] MEDS: AMIODARONE HCL 200 MG TABLET GT SCH ×2 (09:02→20:37)
[2022-03-15] MEDS: FUROSEMIDE 40 MG/4 ML VIAL IV SCH ×2 (09:02→16:37)
[2022-03-15] MEDS: METOPROLOL TARTRATE INJ 5 MG/5 ML AMPUL IV SCH ×2 (09:03→20:43)
[2022-03-15] MEDS: PROSOURCE / PROSTAT (PYXIS) 30 ML UDC GT SCH ×3 (09:05→16:37)
[2022-03-15] MEDS: NITROGLYCERIN 30 GM TUBE TP SCH ×2 (09:05→20:36)
[2022-03-15] MEDS: IV NS 0.9% 1,000 ML IV PRN ×2 (09:21→19:57)
[2022-03-15] MEDS: MICAFUNGIN SODIUM 100 MG in IV NS 0.9% 100 ML IV SCH (11:34)
[2022-03-15 12:00] VITALS: BP 180/78
[2022-03-15] MEDS: DIGOXIN 0.25 MG TABLET GT SCH (13:15)
--- NOTE | 2022-03-15 14:30 | NUR ---
RN NOTE PT HAD DIFFICULTY BREATHING DUE TO TRACH PLACEMENT.RT NOTIFIED. TRACH NEEDS TO BE REPLACED PER MD VALENCIA. RT WAS NOTIFIED AND WILL F/U WITH MD TO FIND OUT WHEN CURRENT TRACH WILL BE REPLACED.
[2022-03-15] MEDS: ACETAMINOPHEN 650 MG/20.3 ML UDC GT PRN ×2 (15:23→21:28)
[2022-03-15 16:00] VITALS: BP 158/67
--- NOTE | 2022-03-15 18:34 | NUR ---
RN CLOSING NOTE PT REMAINED STABLE THROUGHOUT SHIFT. PT CURRENTLY IN BED RESTING, A/O X 2. PT IS NON VERBAL. ON BIVONA #8 VENT, TOLERATING VENT SETTINGS WELL WITH SPO2 OF 99%. NO S/SX OF ACUTE DISTRESS NOTED. PT IS IN ELMO-BED. IV LINE NOTED IN LAC PATENT AND INTACT WITH NO SIGNS OF INFILTRATION NOTED RUNNING NS @ 100 ML/HR.. ON GTF, NEPRO AT 45 ML/HR. FC IS IN PLACE DRAINING WELL IN GRAVITY. ALL SAFETY MEASURES IN PLACE, BED LOCKED AND IN LOWEST POSITION, SIDE RAILS UPX2, CALL LIGHT WITHIN REACH, WILL ENDORSE TO TORCH STRAIGHTENER AND HEATER RN.
--- NOTE | 2022-03-15 19:40 | NUR ---
RN NOTE RECEIVED PATIENT IN BED, LETHARGIC, OPENS EYES, NON-VERBAL, ONLY NODS YES OR NO. BREATHING NOTED WITH MILD SOB. ON TRACH. BIVONA PORTEX 8. AC: 18, FIO2 40%, TV 500 ML, PEEP 5. TOLERATING WELL. OXYGEN SATURATION 100 PERCENT VIA BEDSIDE SPO2 MONITOR. DENIES THE NEED FOR SUCTION AT THIS TIME. TRACH COLLAR AND DRESSING CHANGED. HOB ELEVATED 35 DEGREES. SKIN WARM AND DRY. NOTED WITH GENERALIZED PITTING EDEMA +2. LEFT AC 20. ALSO INSERTED RIGHT AC 20G. CURRENTLY INFUSING NS AT 100 CC/HR. PEG TUBE IN PLACE WITH TF OF NEPRO 45 CC/HR. 5 CC RESIDUAL. PEG TUBE DRESSING CHANGED. NOTED WITH GARCIA CATHETER IN PLACE. NO BLEEDING NOTED. DRAINING ADEQUATE YELLOW URINE. NO VISIBLE HEMATURIA. BED LOW, IN LOCKED POSITION. CALL LIGHT WITHIN REACH.
[2022-03-15 20:00] VITALS: BP 111/64
[2022-03-15] MEDS: Potassium Chloride 20 MEQ in IV D5W 1,000 ML IV SCH (21:09)
[2022-03-16] VITALS: BP 125/64
[2022-03-16] MEDS: NEPRO 1,000 ML BOTTLE GT SCH (02:34)
[2022-03-16 04:00] VITALS: BP 142/61
[2022-03-16] MEDS: Potassium Chloride 20 MEQ in IV D5W 1,000 ML IV SCH ×2 (07:23→16:41)
--- NOTE | 2022-03-16 07:27 | NUR ---
evp sales opening notes: RECEIVED PATIENT IN BED, AWAKE ANSWER BACK HELLO WHEN I SAID HELLO. BREATHING EVEN AND UNLABORED. ON TRACH. BIVONA PORTEX 8. AC: VENT SETTING TOLERATED PRESCRIBED. TOLERATING WELL. OXYGEN SATURATION 100 PERCENT VIA BEDSIDE SPO2 MONITOR. DENIES THE NEED FOR SUCTION AT THIS TIME. HOB ELEVATED 45 DEGREES. SKIN WARM AND DRY. NOTED WITH GENERALIZED PITTING EDEMA +2. RIGHT AC 20 PATENT , FLUSHED WELL. CURRENTLY INFUSING NS AT 100 CC/HR. PEG TUBE IN PLACE WITH TF OF NEPRO 45 CC/HR. 0 CC RESIDUAL. PEG TUBE DRESSING CHANGED. NOTED WITH GARCIA CATHETER IN PLACE. NO BLEEDING NOTED. DRAINING ADEQUATE YELLOW URINE. NO VISIBLE HEMATURIA. BED LOW, IN LOCKED POSITION. CALL LIGHT WITHIN REACH
[2022-03-16 08:00] VITALS: BP 147/66
[2022-03-16] MEDS ORDERED: POTASSIUM CHLORIDE 20 MEQ POWDER PACKET GT SCH (09:00)
[2022-03-16] MEDS: METOPROLOL TARTRATE INJ 5 MG/5 ML AMPUL IV SCH ×2 (09:00→20:19)
[2022-03-16] MEDS: PROSOURCE / PROSTAT (PYXIS) 30 ML UDC GT SCH ×3 (09:01→16:41)
[2022-03-16] MEDS: PANTOPRAZOLE 40 MG/PACK PACK NG SCH (09:01)
[2022-03-16] MEDS: FUROSEMIDE 40 MG/4 ML VIAL IV SCH ×2 (09:01→16:40)
[2022-03-16] MEDS: NITROGLYCERIN 30 GM TUBE TP SCH ×2 (09:02→20:23)
[2022-03-16] MEDS: AMIODARONE HCL 200 MG TABLET GT SCH ×2 (09:03→20:20)
[2022-03-16 09:41] LABS: BASOPHILS # (AUTO) 0.1 K/uL (0.0-0.2); BASOPHILS % (AUTO) 0.4 % (0.0-2.0); EOSINOPHILS % (AUTO) 0.1 % (0.0-6.0); HEMATOCRIT 23 % (39-51); HEMOGLOBIN 7.1 g/dL (13.5-17.5); LYMPHOCYTES # (AUTO) 1.9 K/uL (0.8-4.8); LYMPHOCYTES % (AUTO) 8.3 % (20.0-44.0); MEAN CORPUSCULAR HGB CONC 31 g/dl (31.0-36.0); MEAN CORPUSCULAR VOLUME 89 fL (80-96); MONOCYTES # (AUTO) 1.9 K/uL (0.1-1.30); MONOCYTES % (AUTO) 8.2 % (2.0-12.0); NEUTROPHILS # (AUTO) 18.8 K/uL (1.8-8.9); PLATELET COUNT (AUTO) 87 K/uL (150-450); RED BLOOD CELL COUNT(AUTO) 2.56 MIL/uL (4.5-6.0); WHITE BLOOD COUNT (AUTO) 22.7 K/uL (4.3-11.0)
[2022-03-16 09:48] LABS: ALBUMIN 1.7 g/dL (3.4-5.0); BILIRUBIN,DIRECT 0.3 mg/dL (0.0-0.2); BILIRUBIN,TOTAL 0.6 mg/dL (0.2-1.0); MAGNESIUM 1.9 mg/dL (1.8-2.4); PHOSPHORUS 4.1 mg/dL (2.5-4.9); TOTAL PROTEIN, SERUM 6.3 g/dL (6.4-8.2)
--- NOTE | 2022-03-16 11:00 | NUR ---
spoke with about situation with the tube feeding .he did not give us a time when he was coming in and the family is ask the tube feeding
--- NOTE | 2022-03-16 11:40 | NUR ---
os stated that he just spoke to him < Dr. Grimaldo >and will try to see patient later, daughter was notified
[2022-03-16 12:00] VITALS: BP 162/71
[2022-03-16] MEDS: MICAFUNGIN SODIUM 100 MG in IV NS 0.9% 100 ML IV SCH (12:10)
[2022-03-16] MEDS: MEROPENEM 500 MG in IV NS 0.9% 50 ML IV SCH (12:12)
[2022-03-16] MEDS: DOXYCYCLINE 100 MG in IV D5W 100 ML IV SCH ×2 (13:10→20:20)
[2022-03-16] MEDS: DIGOXIN 0.25 MG TABLET GT SCH (13:21)
[2022-03-16 16:00] VITALS: BP 145/70
--- NOTE | 2022-03-16 19:10 | NUR ---
RN OPENING NOTES RECEIVED PATIENT ON BED, AWAKE, ALERT AND VERBALLY RESPONSIVE. ON MECHANICAL VENTILATOR, SETTINGS TOLERATED WELL. RESPIRATORY EVEN AND UNLABORED, NO SOB NOTED. REMAIN AFEBRILE. NO S/S OF DISTRESS NOTED. NOTED WITH LAC #20G PERIPHERAL LINE, INTACT PATENT, FLUSHED WITH NS. NO INFILTRATION NOTED AT SITE. RUNNING WITH D5W + POTASSIUM 20MEQ @ 100ML/HR. GTUBE INTACT, INPLACED, VERIFIED PLACEMENT BY AUSCULTATION, NO RESIDUAL NOTED UPON ASPIRATION, FLUSH WITH WATER, RUNNING WITH NEPHRO @ 45 ML/HR. SAFETY MEASURE PROVIDED. BED IN LOWEST POSITION, LOCKED. BED ALARM ARMED. CONTINUE TO MONITOR.
--- NOTE | 2022-03-16 19:49 | NUR ---
RN closing notes: PATIENT IN BED, AWAKE AND A/O X2-3 AND RESPONSIVE TO PAINFUL STIMULI. ON MECHANICAL VENT SETTING AND PT TOLERATING WELL. O2 SAT 100%. IV ACCESS ON LEFT AC#20G INTACT AND PATENT. NO S/S OF INFILTRATIONS. RUNNING IVF D5W with KCL AT 100ML/HR INFUSING WELL. NO C/O PAIN OR DISCOMFORT. NO ACUTE DISTRESS. GARCIA CATHETER IN PLACE, DRAINING CLEAR YELLOW URINE. ON GTUBE FEEDING, NEPRO AT 45ML/HR. GTUBE SITE INTACT. ALL SAFETY MEASURES IN PLACE. PLACE CALL LIGHT WITHIN REACH. BED ON LOWEST POSITION AND LOCKED, SIDE RAILS UP X2. WILL ENDORSE TO MORNING SHIFT NURSE.
[2022-03-16 20:00] VITALS: BP 170/71
--- NOTE | 2022-03-16 20:25 | NUR ---
RN NOTES PATIENT NOTED WITH BP- 170/71, PULSE- 67. ROUTINE METOPROLOL 5MG IV GIVEN. CONTINUE TO MONITOR
--- NOTE | 2022-03-16 21:00 | NUR ---
RN NOTES BP RECHECKED AND OBTAINED 158/70, PULSE 65. CONTINUE TO MONITOR.
[2022-03-17] VITALS: BP 150/63
[2022-03-17] MEDS: ACETAMINOPHEN 650 MG/20.3 ML UDC GT PRN (00:11)
[2022-03-17] MEDS: MEROPENEM 500 MG in IV NS 0.9% 50 ML IV SCH ×2 (00:12→11:41)
--- NOTE | 2022-03-17 00:17 | NUR ---
RN NOTES PATIENT NOTED WITH TEMPERATURE 101.1 FAHRENHEIT, BODY COOLING MEASURE PROVIDED. ACETAMINOPHEN 650MG GIVEN VIA GTUBE. CONTINUE TO MONITOR.
--- NOTE | 2022-03-17 01:00 | NUR ---
RN NOTES TEMPERATURE RECHECKED AND OBTAINED 100.7 FAHRENHEIT. CONTINUE TO PROVIDE BODY COOLING MEASURE. CONTINUE TO MONITOR.
[2022-03-17] MEDS: Potassium Chloride 20 MEQ in IV D5W 1,000 ML IV SCH (03:36)
[2022-03-17 04:00] VITALS: BP 129/61
[2022-03-17] MEDS: NEPRO 1,000 ML BOTTLE GT SCH (06:15)
--- NOTE | 2022-03-17 07:10 | NUR ---
RN NOTES NO SIGNIFICANT CHANGES THROUGH OUT THE SHIFT. RESPIRATORY EVEN AND UNLABORED, NO SOB NOTED. REMAIN AFEBRILE. NO S/S OF DISTRESS NOTED. INSERTED LINWOOD MID LINE #18, INTACT PATENT, PROCEDURE TOLERATED WELL, FLUSHED WITH NS. NO INFILTRATION NOTED AT SITE. RUNNING WITH D5W + POTASSIUM 20MEQ @ 100ML/HR. RUNNING WITH NEPHRO @ 45 ML/HR. HEAD OF BED KEPT ELEVATED. ALL DUE MEDS GIVEN ORDERED. SAFETY MEASURE PROVIDED. BED IN LOWEST POSITION, LOCKED. BED ALARM ARMED. ENDORSED TO NEXT SHIFT
[2022-03-17 07:15] LABS: BASOPHILS % (AUTO) 0.2 % (0.0-2.0); EOSINOPHILS % (AUTO) 0.3 % (0.0-6.0); HEMATOCRIT 24 % (39-51); HEMOGLOBIN 7.2 g/dL (13.5-17.5); LYMPHOCYTES # (AUTO) 1.4 K/uL (0.8-4.8); LYMPHOCYTES % (AUTO) 5.6 % (20.0-44.0); MEAN CORPUSCULAR HGB CONC 30 g/dl (31.0-36.0); MEAN CORPUSCULAR VOLUME 91 fL (80-96); MONOCYTES # (AUTO) 1.6 K/uL (0.1-1.30); MONOCYTES % (AUTO) 6.5 % (2.0-12.0); NEUTROPHILS # (AUTO) 21.7 K/uL (1.8-8.9); NEUTROPHILS % (AUTO) 87.4 % (43.0-81.0); PLATELET COUNT (AUTO) 101 K/uL (150-450); RED BLOOD CELL COUNT(AUTO) 2.61 MIL/uL (4.5-6.0); WHITE BLOOD COUNT (AUTO) 24.8 K/uL (4.3-11.0)
[2022-03-17 08:00] VITALS: BP 139/67
[2022-03-17 08:03] LABS: CALCIUM, SERUM 8.6 mg/dL (8.5-10.1); CREATININE 4.8 mg/dL (0.6-1.3); MAGNESIUM 1.9 mg/dL (1.8-2.4); PHOSPHORUS 3.9 mg/dL (2.5-4.9); POTASSIUM 3.1 mmol/L (3.5-5.1)
[2022-03-17] MEDS: AMIODARONE HCL 200 MG TABLET GT SCH ×2 (08:33→21:42)
[2022-03-17] MEDS: PANTOPRAZOLE 40 MG/PACK PACK NG SCH (08:33)
[2022-03-17] MEDS: FUROSEMIDE 40 MG/4 ML VIAL IV SCH ×2 (08:33→17:17)
[2022-03-17] MEDS: METOPROLOL TARTRATE INJ 5 MG/5 ML AMPUL IV SCH ×2 (08:38→21:42)
[2022-03-17] MEDS: NITROGLYCERIN 30 GM TUBE TP SCH ×2 (08:39→21:42)
[2022-03-17] MEDS: PROSOURCE / PROSTAT (PYXIS) 30 ML UDC GT SCH ×3 (08:39→17:17)
[2022-03-17] MEDS: DOXYCYCLINE 100 MG in IV D5W 100 ML IV SCH ×2 (08:46→21:43)
[2022-03-17] MEDS ORDERED: Potassium Chloride 40 MEQ in IV D5/0.45 NACL 1,000 ML IV PRN (10:00)
[2022-03-17] MEDS: Potassium Chloride 40 MEQ in IV D5/0.45 NACL 1,000 ML IV SCH ×2 (10:51→18:22)
[2022-03-17] MEDS: MICAFUNGIN SODIUM 100 MG in IV NS 0.9% 100 ML IV SCH (11:41)
[2022-03-17 12:00] VITALS: BP 141/66
[2022-03-17] MEDS: DIGOXIN 0.25 MG TABLET GT SCH (12:39)
[2022-03-17] MEDS: COLISTIMETHATE SODIUM 150 MG CBA VIAL NEB SCH ×2 (13:43→22:00)
[2022-03-17] MEDS: AMOX/CLAVULANATE 250 MG TABLET PO SCH ×2 (13:43→21:41)
--- NOTE | 2022-03-17 15:20 | NUR ---
RT NOTE DR. GOLDMAN AT BEDSIDE TO CHANGE TRACH TO SHILEY #8 XLT PROXIMAL CUFFED. RT'S AT BEDSIDE TO ASSIST. RN AT BEDSIDE. NO BLEEDING NOTED. NO COMPLICATIONS NOTED. FIRER HELPER DONE. SPARE TRACH AND AMBU BAG AT BEDSIDE. SOON DEVELOPMENT TEAM LEAD NOTIFIED AND AWARE. NO SOB NOTED AT THIS TIME. WILL CONTINUE TO MONITOR FOR ANY CHANGES.
--- NOTE | 2022-03-17 15:40 | NUR ---
RN notes: seen by DR Wood who replaced trach tube with new trach shiley xlt 8, well tolerated
[2022-03-17 16:00] VITALS: BP 122/56
--- NOTE | 2022-03-17 19:30 | NUR ---
RN CLOSING NOTES: PATIENT IN BED, AWAKE AND A/O X2-3 AND RESPONSIVE TO PAINFUL STIMULI. ON MECHANICAL VENT SETTING AND PT TOLERATING WELL. O2 SAT 100%. IV ACCESS ON LEFT AC#20G INTACT AND PATENT. NO S/S OF INFILTRATIONS. RUNNING IVF D5W with KCL AT 100ML/HR INFUSING WELL. NO C/O PAIN OR DISCOMFORT. NO ACUTE DISTRESS. GARCIA CATHETER IN PLACE, DRAINING CLEAR YELLOW URINE. ON GTUBE FEEDING, NEPRO AT 45ML/HR. GTUBE SITE INTACT. , RECTAL TUBE IN PLACE DRAINING WELL, SEEN BY DR WENDIE RDZ, PT STILL URINATING NOT CANDIDATE FOR DIALYSIS WILL MONITOR LAB AT THIS TIME, ALL SAFETY MEASURES IN PLACE. PLACE CALL LIGHT WITHIN REACH. BED ON LOWEST POSITION AND LOCKED, SIDE RAILS UP X2. WILL ENDORSE TO BLOW UP OPERATOR NURSE.
[2022-03-17 20:00] VITALS: BP 145/78
[2022-03-18] VITALS (11 sets, daily range): BP systolic 102–183; BP diastolic 60–89
[2022-03-18] MEDS: Potassium Chloride 40 MEQ in IV D5/0.45 NACL 1,000 ML IV SCH ×2 (00:48→10:51)
--- NOTE | 2022-03-18 06:33 | NUR ---
EMPLOYMENT ASSISTANT NOTES AWAKE & ALERT, NON VERBAL. NOT IN ANY DISTRESS. NO SOB NOTED. NO S/SX OF ANY PAIN OR DISCOMFORT AT THIS TIME. ON TELE SR @ 90 WITH IVF & GTF INFUSING WELL. AM CARE DONE. MONITORED ACCORDINGLY. CALL LIGHT WITHIN REACH. BED IN LOWEST POSITION. SR UP X 3 WITH BED ALARM ON FOR SAFETY. WILL ENDORSE TO NEXT SHIFT. Addendum: 03/18/22 at 0641 by AFIA BOLTON RN ON TELE SR WITH 1AVB WITH [facility] @ 75 NOT SR @ 90. WITH SAME VENT SETTINGS.
--- NOTE | 2022-03-18 07:30 | NUR ---
RN OPENING NOTES PATIENT ENDORSED BY OUTGOING NURSE FOR CONTINUITY OF CARE. RECEIVED PATIENT ON BED, AWAKE, ALERT AND VERBALLY RESPONSIVE. ON MECHANICAL VENTILATOR, SETTINGS TOLERATED WELL. RESPIRATORY EVEN AND UNLABORED, NO SOB NOTED. REMAIN AFEBRILE. NO S/S OF DISTRESS NOTED. NOTED WITH LAC #20G PERIPHERAL LINE, INTACT PATENT, FLUSHED WITH NS. NO INFILTRATION NOTED AT SITE. RUNNING WITH D5W + POTASSIUM 20MEQ @ 125ML/HR. GTUBE INTACT, INPLACED, VERIFIED PLACEMENT BY AUSCULTATION, NO RESIDUAL NOTED UPON ASPIRATION, FLUSH WITH WATER, RUNNING WITH NEPHRO @ 45 ML/HR. SAFETY MEASURE PROVIDED. BED IN LOWEST POSITION, LOCKED. BED ALARM ARMED. CONTINUE TO MONITOR.
[2022-03-18 08:33] LABS: BASOPHILS # (AUTO) 0.1 K/uL (0.0-0.2); BASOPHILS % (AUTO) 0.3 % (0.0-2.0); EOSINOPHILS % (AUTO) 2.4 % (0.0-6.0); HEMATOCRIT 22 % (39-51); LYMPHOCYTES # (AUTO) 1.3 K/uL (0.8-4.8); LYMPHOCYTES % (AUTO) 6.3 % (20.0-44.0); MEAN CORPUSCULAR HGB CONC 31 g/dl (31.0-36.0); MEAN CORPUSCULAR VOLUME 91 fL (80-96); MONOCYTES # (AUTO) 1.4 K/uL (0.1-1.30); MONOCYTES % (AUTO) 6.9 % (2.0-12.0); NEUTROPHILS # (AUTO) 17.2 K/uL (1.8-8.9); NEUTROPHILS % (AUTO) 84.1 % (43.0-81.0); PLATELET COUNT (AUTO) 105 K/uL (150-450); RED BLOOD CELL COUNT(AUTO) 2.37 MIL/uL (4.5-6.0); WHITE BLOOD COUNT (AUTO) 20.4 K/uL (4.3-11.0)
[2022-03-18] MEDS: FUROSEMIDE 40 MG/4 ML VIAL IV SCH ×2 (08:35→17:31)
[2022-03-18] MEDS: METOPROLOL TARTRATE INJ 5 MG/5 ML AMPUL IV SCH ×2 (08:35→21:01)
[2022-03-18] MEDS: PANTOPRAZOLE 40 MG/PACK PACK NG SCH (08:36)
[2022-03-18] MEDS: AMOX/CLAVULANATE 250 MG TABLET PO SCH ×2 (08:36→21:01)
[2022-03-18] MEDS: AMIODARONE HCL 200 MG TABLET GT SCH ×2 (08:36→21:00)
[2022-03-18 08:48] LABS: CALCIUM, SERUM 8.2 mg/dL (8.5-10.1); CREATININE 4.5 mg/dL (0.6-1.3); POTASSIUM 3.1 mmol/L (3.5-5.1)
[2022-03-18 09:09] LABS: HEMOGLOBIN 6.6 g/dL (13.5-17.5)
[2022-03-18] MEDS: PROSOURCE / PROSTAT (PYXIS) 30 ML UDC GT SCH ×3 (10:45→17:31)
[2022-03-18] MEDS: DOXYCYCLINE 100 MG in IV D5W 100 ML IV SCH ×2 (10:47→21:01)
[2022-03-18] MEDS: COLISTIMETHATE SODIUM 150 MG CBA VIAL NEB SCH ×2 (11:20→20:56)
[2022-03-18] MEDS: MICAFUNGIN SODIUM 100 MG in IV NS 0.9% 100 ML IV SCH (12:20)
[2022-03-18] MEDS: NEPRO 1,000 ML BOTTLE GT SCH (12:39)
[2022-03-18] MEDS: DIGOXIN 0.25 MG TABLET GT SCH (12:45)
--- NOTE | 2022-03-18 13:32 | NUR ---
telescope repairer note called blood bank, blood not ready yet , will f\u
--- NOTE | 2022-03-18 19:30 | NUR ---
DEVELOPMENT PLANNER OPENING NOTE RECEIVED PATIENT AWAKE IN BED. A/O X2. ON MECHANICAL VENT, SATURATING 100%. NO SOB OR RESPIRATORY DISTRESS NOTED. ON EXTERNAL MAINTENANCE EQUIPMENT OPERATOR READING SR. IV ACCESS LINWOOD ML, INTACT AND PATENT. GARCIA CATH INTACT DRAINING CLEAR YELLOW URINE. RECTAL TUBE IN PLACE. GT IN PLACE RUNNING NEPRO @ 45 ML/HR. SAFETY PRECAUTIONS IN PLACE. BED IN LOWEST LOCKED POSITION, HOB ELEVATED, SIDE RAILS UP X3, AND CALL LIGHT AND TABLE WITHIN REACH. ALL NEEDS MET AT THIS TIME.
--- NOTE | 2022-03-18 20:18 | NUR ---
RN CLOSING NOTES: PATIENT IN BED, AWAKE AND A/O X4 AND RESPONSIVE TO PAINFUL STIMULI. ON MECHANICAL VENT SETTING AND PT TOLERATING WELL. O2 SAT 100%. IV ACCESS ON LEFT AC#20G INTACT AND PATENT. NO S/S OF INFILTRATIONS. RUNNING IVF D5W with KCL AT 100ML/HR INFUSING WELL. NO C/O PAIN OR DISCOMFORT. NO ACUTE DISTRESS. GARCIA CATHETER IN PLACE, DRAINING CLEAR YELLOW URINE. IV FLUID DISCONTINUED PER DR. RDZ ORDERON GTUBE FEEDING, NEPRO AT 45ML/HR. GTUBE SITE INTACT. , RECTAL TUBE IN PLACE DRAINING WELL, SEEN BY DR WENDIE RDZ, PT WILL BE DIALYSIS AFTER GETS CATH WILL MONITOR LAB AT THIS TIME, ALL SAFETY MEASURES IN PLACE. PLACE CALL LIGHT WITHIN REACH. BED ON LOWEST POSITION AND LOCKED, SIDE RAILS UP X2. WILL ENDORSE TO BAND BUILDER NURSE.
[2022-03-18] MEDS: NITROGLYCERIN 30 GM TUBE TP SCH (21:00)
[2022-03-19] VITALS: BP 154/85
[2022-03-19 04:00] VITALS: BP 149/78
[2022-03-19 06:13] LABS: BASOPHILS # (AUTO) 0.1 K/uL (0.0-0.2); BASOPHILS % (AUTO) 0.3 % (0.0-2.0); EOSINOPHILS % (AUTO) 3.9 % (0.0-6.0); HEMATOCRIT 25 % (39-51); HEMOGLOBIN 7.8 g/dL (13.5-17.5); LYMPHOCYTES # (AUTO) 1.4 K/uL (0.8-4.8); LYMPHOCYTES % (AUTO) 8.6 % (20.0-44.0); MEAN CORPUSCULAR HGB CONC 32 g/dl (31.0-36.0); MEAN CORPUSCULAR VOLUME 89 fL (80-96); MONOCYTES # (AUTO) 1.2 K/uL (0.1-1.30); MONOCYTES % (AUTO) 7.7 % (2.0-12.0); NEUTROPHILS # (AUTO) 12.6 K/uL (1.8-8.9); NEUTROPHILS % (AUTO) 79.5 % (43.0-81.0); PLATELET COUNT (AUTO) 119 K/uL (150-450); RED BLOOD CELL COUNT(AUTO) 2.76 MIL/uL (4.5-6.0); WHITE BLOOD COUNT (AUTO) 15.9 K/uL (4.3-11.0)
[2022-03-19 06:15] LABS: CALCIUM, SERUM 8.5 mg/dL (8.5-10.1); MAGNESIUM 1.8 mg/dL (1.8-2.4); PHOSPHORUS 3.8 mg/dL (2.5-4.9); POTASSIUM 3.2 mmol/L (3.5-5.1)
--- NOTE | 2022-03-19 06:50 | NUR ---
PRECISION PRINTING WORKER CLOSING NOTE PATIENT AWAKE IN BED. A/O X2. ON MECHANICAL VENT, SATURATING 100%. NO SOB OR RESPIRATORY DISTRESS NOTED. ON EXTERNAL TWISTER IN READING SR @ 73 BPM. IV ACCESS LINWOOD ML, INTACT AND PATENT. GARCIA CATH INTACT DRAINING CLEAR YELLOW URINE, DRAINED 2700 ML THIS SHIFT. RECTAL TUBE IN PLACE. GT IN PLACE RUNNING NEPRO @ 45 ML/HR. SAFETY PRECAUTIONS IN PLACE AT ALL TIMES. BED IN LOWEST LOCKED POSITION, HOB ELEVATED, SIDE RAILS UP X3, AND CALL LIGHT AND TABLE WITHIN REACH. ALL NEEDS MET AT THIS TIME. WILL ENDORSE TO ONCOMING NURSE FOR VY.
--- NOTE | 2022-03-19 07:30 | NUR ---
RN OPENING NOTES PATIENT ENDORSED BY OUTGOING NURSE FOR CONTINUITY OF CARE. RECEIVED PATIENT ON BED, AWAKE, ALERT BUT NOT VERBALLY RESPONSIVE BECAUSE OF TRACHEOSTOMY. ON MECHANICAL VENTILATOR, SETTINGS TOLERATED WELL. RESPIRATORY EVEN AND UNLABORED, NO SOB NOTED. REMAIN AFEBRILE. NO S/S OF DISTRESS NOTED. NOTED WITH LEFT UPPER #20G MIDLINE LINE, INTACT PATENT, FLUSHED WITH NS. NO INFILTRATION NOTED AT SITE. GTUBE INTACT, IN PLACED, VERIFIED PLACEMENT BY AUSCULTATION, NO RESIDUAL NOTED UPON ASPIRATION, FLUSH WITH WATER, RUNNING WITH NEPHRO @ 45 ML/HR. SAFETY MEASURE PROVIDED. BED IN LOWEST POSITION, LOCKED. BED ALARM
[2022-03-19 08:00] VITALS: BP 159/82
[2022-03-19] MEDS: AMIODARONE HCL 200 MG TABLET GT SCH ×2 (08:29→21:46)
[2022-03-19] MEDS: DOXYCYCLINE 100 MG in IV D5W 100 ML IV SCH ×2 (08:29→20:47)
[2022-03-19] MEDS: FUROSEMIDE 40 MG/4 ML VIAL IV SCH ×2 (08:29→16:07)
[2022-03-19] MEDS: METOPROLOL TARTRATE INJ 5 MG/5 ML AMPUL IV SCH ×2 (08:30→21:47)
[2022-03-19] MEDS: PANTOPRAZOLE 40 MG/PACK PACK NG SCH (08:30)
[2022-03-19] MEDS: AMOX/CLAVULANATE 250 MG TABLET PO SCH ×2 (08:30→21:47)
[2022-03-19] MEDS: PROSOURCE / PROSTAT (PYXIS) 30 ML UDC GT SCH ×3 (08:31→16:07)
[2022-03-19] MEDS: COLISTIMETHATE SODIUM 150 MG CBA VIAL NEB SCH ×2 (08:37→22:27)
[2022-03-19 12:00] VITALS: BP 155/88
[2022-03-19] MEDS: MICAFUNGIN SODIUM 100 MG in IV NS 0.9% 100 ML IV SCH (12:33)
[2022-03-19] MEDS: DIGOXIN 0.25 MG TABLET GT SCH (12:51)
[2022-03-19 14:55] LABS: OCCULT BLOOD STOOL NEGATIVE (NEGATIVE)
[2022-03-19 16:00] VITALS: BP 159/83
--- NOTE | 2022-03-19 18:44 | NUR ---
RN CLOSING NOTES: PATIENT IN BED, AWAKE AND A/O X2-3 AND RESPONSIVE TO PAINFUL STIMULI. ON MECHANICAL VENT SETTING AND PT TOLERATING WELL. O2 SAT 100%. IV ACCESS ON LEFT AC#20G INTACT AND PATENT. NO S/S OF INFILTRATIONS. NO RUNNING IVF. NO C/O PAIN OR DISCOMFORT. NO ACUTE DISTRESS. GARCIA CATHETER IN PLACE, DRAINING CLEAR YELLOW URINE ALMOST 3300CC. ON GTUBE FEEDING, NEPRO AT 45ML/HR. GTUBE SITE INTACT. , RECTAL TUBE IN PLACE DRAINING WELL, WILL MONITOR LAB AT THIS TIME, ALL SAFETY MEASURES IN PLACE. PLACE CALL LIGHT WITHIN REACH. BED ON LOWEST POSITION AND LOCKED, SIDE RAILS UP X2. WILL ENDORSE TO INDUSTRIAL PSYCHOLOGY TEACHER NURSE.
--- NOTE | 2022-03-19 19:15 | NUR ---
RN NOTE RECEIVED PT AWAKE IN BED, A/OX2, NONVERBAL, SHAKES/NODS HEAD WHEN SPOKEN TO. ON MECH VENT AND DORITA SETTINGS WELL. IV ACCESS: LINWOOD MIDLINE INTACT/PATENT/FLUSHES WELL. GT IN PLACE/PATENT, NO RESIDUALS NOTED. ON GTF NEPRO @45ML/HR AND DORITA WELL. FC INTACT, DRAINING CLEAR YELLOW URINE. RECTAL TUBE IN PLACE. PT IN NO ACUTE DISTRESS. SAFETY MEASURES IN PLACE. WILL CONT TO MONITOR.
--- NOTE | 2022-03-19 19:55 | NUR ---
RN NOTE TELE MONITOR CURRENTLY READING SR, HR 81, WITH 1ST DEGREE AV BLOCK
[2022-03-19 20:00] VITALS: BP 131/85
[2022-03-19] MEDS: NITROGLYCERIN 30 GM TUBE TP SCH (21:48)
[2022-03-20] VITALS: BP 140/80
[2022-03-20] MEDS: NEPRO 1,000 ML BOTTLE GT SCH (02:06)
[2022-03-20 04:00] VITALS: BP 129/79
--- NOTE | 2022-03-20 07:20 | NUR ---
RN OPENING NOTE RECEIVED PATIENT IN BED, EYES CLOSE, ALERT/ORIENTEDX2, NONVERBAL, ON MECH VENT AND TOLERATING SETTINGS WELL. NO ANY ACUTE DISTRESS NOTED AT THE TIME. IV ACCESS ON LINWOOD MIDLINE INTACT/PATENT/FLUSHES WELL. GT IN PLACE AND PATENT, NO RESIDUAL NOTED UPON ASPIRATION. ON GTF NEPRO @45ML/HR. FC INTACT, DRAINING CLEAR YELLOW URINE. RECTAL TUBE IN PLACE. ALL SAFETY MEASURES IN PLACE. HOB ELEVATED, BED LOCKED AND IN LOWEST POSITION WITH SIDERAILS UP. CALL LIGHT WITHIN REACH. WILL CONT TO MONITOR PATIENT ACCORDINGLY.
[2022-03-20 08:00] VITALS: BP 148/68
[2022-03-20] MEDS: COLISTIMETHATE SODIUM 150 MG CBA VIAL NEB SCH ×2 (08:21→20:14)
[2022-03-20] MEDS: AMOX/CLAVULANATE 250 MG TABLET PO SCH ×2 (08:29→21:43)
[2022-03-20] MEDS: NITROGLYCERIN 30 GM TUBE TP SCH ×2 (08:30→21:43)
[2022-03-20] MEDS: FUROSEMIDE 40 MG/4 ML VIAL IV SCH ×2 (08:31→16:46)
[2022-03-20] MEDS: PROSOURCE / PROSTAT (PYXIS) 30 ML UDC GT SCH ×3 (08:31→16:46)
[2022-03-20] MEDS: AMIODARONE HCL 200 MG TABLET GT SCH ×2 (08:31→21:42)
[2022-03-20] MEDS: PANTOPRAZOLE 40 MG/PACK PACK NG SCH (08:31)
[2022-03-20] MEDS: METOPROLOL TARTRATE INJ 5 MG/5 ML AMPUL IV SCH ×2 (08:31→21:42)
[2022-03-20] MEDS: DOXYCYCLINE 100 MG in IV D5W 100 ML IV SCH ×2 (08:32→21:45)
[2022-03-20 12:00] VITALS: BP 136/70
[2022-03-20] MEDS: MICAFUNGIN SODIUM 100 MG in IV NS 0.9% 100 ML IV SCH (12:27)
[2022-03-20] MEDS: DIGOXIN 0.25 MG TABLET GT SCH (12:28)
[2022-03-20 15:14] LABS: CALCIUM, SERUM 9.3 mg/dL (8.5-10.1); POTASSIUM 3.3 mmol/L (3.5-5.1)
[2022-03-20 15:36] LABS: CREATININE 3.1 mg/dL (0.6-1.3)
[2022-03-20 16:00] VITALS: BP 149/71
--- NOTE | 2022-03-20 19:14 | NUR ---
RN CLOSING NOTE NO SIGNIFICANT CHANGES THROUGHOUT SHIFT. PATIENT AWAKE, ALERT/ORIENTEDX2, NONVERBAL, ON MECH VENT AND TOLERATING SETTINGS WELL. NO ANY ACUTE DISTRESS NOTED AT THE TIME. IV ACCESS ON LINWOOD MIDLINE INTACT/PATENT/FLUSHES WELL. GT IN PLACE AND PATENT, NO RESIDUAL NOTED UPON ASPIRATION. ON GTF NEPRO @45ML/HR. ALL DUE MEDS GIVEN ORDERED. ALL NEEDS ANTICIPATED. KEPT PATIENT CLEAN DRY AND COMFORTABLE. WOUND CARE RENDERED TOLERATED WELL. ALL SAFETY MEASURES IN PLACE. WILL ENDORSE TO STRAIGHT RULING MACHINE OPERATOR NURSE FOR CONTINUITY OF CARE.
[2022-03-20 20:00] VITALS: BP 143/70
[2022-03-21] VITALS: BP 138/72
--- NOTE | 2022-03-21 03:47 | NUR ---
FINANCIAL SPECIALIST NOTE DR ARENAS MADE AWARE OF STAT RESULTS OF EKG, PER DR ARENAS NO NEW ORDER.
[2022-03-21 04:00] VITALS: BP 149/72
--- NOTE | 2022-03-21 07:30 | NUR ---
RN OPENING NOTE RECEIVED PATIENT IN BED,AWAKE ALERT/ORIENTEDX2, NONVERBAL, ON MECH VENT AND TOLERATING SETTINGS WELL. BREATHING EVEN AND UNLABORED. NO ANY ACUTE DISTRESS NOTED AT THE TIME. IV ACCESS ON LINWODO MIDLINE INTACT/PATENT/FLUSHES WELL. GT IN PLACE AND PATENT, GT FEEDING IS OFF, PATIENT ON NPO STATUS FOR PERMACATH PLACEMENT PROCEDURE TODAY. FC INTACT, DRAINING CLEAR YELLOW URINE. RECTAL TUBE IN PLACE. ALL SAFETY MEASURES IN PLACE. HOB ELEVATED, BED LOCKED AND IN LOWEST POSITION WITH SIDERAILS UP. CALL LIGHT WITHIN REACH. WILL CONT TO MONITOR PATIENT ACCORDINGLY.
[2022-03-21 08:00] VITALS: BP 151/71
[2022-03-21] MEDS: COLISTIMETHATE SODIUM 150 MG CBA VIAL NEB SCH ×2 (08:15→19:38)
[2022-03-21] MEDS: AMIODARONE HCL 200 MG TABLET GT SCH (09:00)
[2022-03-21] MEDS: AMOX/CLAVULANATE 250 MG TABLET PO SCH ×2 (09:00→21:19)
[2022-03-21] MEDS: PROSOURCE / PROSTAT (PYXIS) 30 ML UDC GT SCH ×3 (09:00→16:08)
[2022-03-21] MEDS: PANTOPRAZOLE 40 MG/PACK PACK NG SCH (09:00)
[2022-03-21] MEDS: METOPROLOL TARTRATE INJ 5 MG/5 ML AMPUL IV SCH ×2 (09:18→21:18)
[2022-03-21] MEDS: FUROSEMIDE 40 MG/4 ML VIAL IV SCH ×2 (09:18→16:08)
[2022-03-21] MEDS: NITROGLYCERIN 30 GM TUBE TP SCH ×2 (09:19→21:19)
[2022-03-21] MEDS: DOXYCYCLINE 100 MG in IV D5W 100 ML IV SCH ×2 (09:48→21:22)
--- NOTE | 2022-03-21 10:30 | NUR ---
RN NOTE PROCEDURE FOR PERMACATHETER PLACEMENT IS CANCELLED. PER MAINOR BOLDEN, GROUNDSKEEPER, NO NEED FOR NPO STATUS AND MAY RESUME ALL MEDS AND GT FEEDING. CALLED MOTHER NEFTALI DEGROOT, INFORMED OF SITUATION AND GOT A TELEPHONE CONSENT FOR A TEMPORARY HEMODIALYSIS CATH PLACEMENT, MOTHER CONSENT TO PROCEDURE.
[2022-03-21 12:00] VITALS: BP 155/78
[2022-03-21] MEDS: ACETAMINOPHEN 650 MG/20.3 ML UDC GT PRN (12:29)
[2022-03-21] MEDS: DIGOXIN 0.25 MG TABLET GT SCH (12:29)
[2022-03-21] MEDS: MICAFUNGIN SODIUM 100 MG in IV NS 0.9% 100 ML IV SCH (12:30)
[2022-03-21 15:36] LABS: BASOPHILS # (AUTO) 0.1 K/uL (0.0-0.2); BASOPHILS % (AUTO) 0.7 % (0.0-2.0); EOSINOPHILS % (AUTO) 5.1 % (0.0-6.0); HEMATOCRIT 25 % (39-51); LYMPHOCYTES # (AUTO) 1.1 K/uL (0.8-4.8); LYMPHOCYTES % (AUTO) 10.9 % (20.0-44.0); MEAN CORPUSCULAR HGB CONC 32 g/dl (31.0-36.0); MEAN CORPUSCULAR VOLUME 89 fL (80-96); MONOCYTES % (AUTO) 10.7 % (2.0-12.0); NEUTROPHILS % (AUTO) 72.6 % (43.0-81.0); PLATELET COUNT (AUTO) 136 K/uL (150-450); RED BLOOD CELL COUNT(AUTO) 2.83 MIL/uL (4.5-6.0); WHITE BLOOD COUNT (AUTO) 9.7 K/uL (4.3-11.0)
[2022-03-21 16:00] VITALS: BP 136/79
[2022-03-21 17:06] LABS: CALCIUM, SERUM 8.9 mg/dL (8.5-10.1); CREATININE 2.6 mg/dL (0.6-1.3); MAGNESIUM 1.6 mg/dL (1.8-2.4); PHOSPHORUS 4.2 mg/dL (2.5-4.9)
[2022-03-21] MEDS: NEPRO 1,000 ML BOTTLE GT SCH (17:38)
--- NOTE | 2022-03-21 19:30 | NUR ---
RN CLOSING NOTE NO SIGNIFICANT CHANGES THROUGHOUT SHIFT. PATIENT IN BED, EYES CLOSE ALERT/ORIENTEDX2, NONVERBAL, [facility] AND TOLERATING SETTINGS WELL. NO ANY ACUTE DISTRESS NOTED AT THE TIME. IV ACCESS ON LINWOOD MIDLINE INTACT/PATENT/FLUSHES WELL. GT IN PLACE AND PATENT, NO RESIDUAL NOTED UPON ASPIRATION. ON GTF NEPRO @45ML/HR. ALL DUE MEDS GIVEN ORDERED. ALL NEEDS ANTICIPATED. KEPT PATIENT CLEAN DRY AND COMFORTABLE. WOUND CARE RENDERED TOLERATED WELL. ALL SAFETY MEASURES IN PLACE. ENDORSED TO CAR ICER NURSE FOR CONTINUITY OF CARE.
--- NOTE | 2022-03-21 19:40 | NUR ---
RN OPENING NOTES, RECEIVED PATIENT IN BED,AWAKE, A/0X2, NONVERBAL. ON TRACH TO [facility] VENT SETTING AND TOLERATING WELL. BREATHING EVEN AND UNLABORED. IV ACCESS ON LINWOOD MIDLINE INTACT AND PATENT. NO BLEEDING NOTED. ON GTUBE FEEDING AT 45CC/HR X24 HOURS. NO FACIAL GRIMACING NOTED. NO ACUTE DISTRESS. GARCIA CATHETER INTACT AND PATENT WITH DRAINING CLEAR YELLOW URINE. RECTAL FLEXISEAL TUBE IN PLACE. ALL SAFETY MEASURES IN PLACE. BED IN LOWEST POSITION AND LOCKED. SIDERAILS UP X3. PLACE CALL LIGHT WITHIN REACH. WILL CONTINUE TO MONITOR
[2022-03-21 20:00] VITALS: BP 156/92
[2022-03-22] VITALS: BP 121/62
[2022-03-22 04:00] VITALS: BP 130/84
--- NOTE | 2022-03-22 06:36 | NUR ---
RN CLOSING NOTES, PATIENT IN BED SLEEPING, BUT EASILY AROUSABLE, AWAKE, A/0X2, NONVERBAL. ON TRACH TO [facility] VENT SETTING AND TOLERATING WELL, O2 SAT 95%. BREATHING EVEN AND UNLABORED. IV ACCESS ON LINWOOD MIDLINE INTACT AND PATENT. NO BLEEDING NOTED. ON GTUBE FEEDING AT 45CC/HR X24 HOURS. NO FACIAL GRIMACING NOTED. NO ACUTE DISTRESS. GARCIA CATHETER INTACT AND PATENT WITH DRAINING CLEAR YELLOW URINE. WITH 2500 URINE OUTPUT. RECTAL FLEXISEAL TUBE IN PLACE. ALL DUE MEDS GIVEN ORDERED. ALL SAFETY MEASURES IN PLACE. BED IN LOWEST POSITION AND LOCKED. SIDERAILS UP X3. PLACE CALL LIGHT WITHIN REACH. WILL ENDORSE TO MORNING SHIFT NURSE.
--- NOTE | 2022-03-22 07:30 | NUR ---
RN OPENING NOTES RECEIVED PATIENT ASLEEP IN BED. NOT IN DISTRESS, NO COMPLAINTS OF PAIN NOTED. TRACH TO VENT AC 18 FIO2 40% VT 500 PEEP 5 SATING 97%. GT IN PLACE WITH TF RUNNING NEPRO @ 45CC/HR, LINWOOD MIDLINE PATENT AND INTACT. FC PATENT AND INTACT DRAINING TO YELLOW COLORED URINE, FLEXISEAL IN PLACE. KEPT HOB ELEVATED. BED TO LOWEST POSITION AND LOCKED. CALL LIGHT WITHIN REACH.
[2022-03-22] MEDS: COLISTIMETHATE SODIUM 150 MG CBA VIAL NEB SCH ×2 (07:57→20:20)
[2022-03-22 08:00] VITALS: BP 139/76
[2022-03-22] MEDS ORDERED: POTASSIUM CHLORIDE 20 MEQ POWDER PACKET GT SCH (10:00)
[2022-03-22] MEDS: AMOX/CLAVULANATE 250 MG TABLET PO SCH ×2 (10:14→21:24)
[2022-03-22] MEDS: PANTOPRAZOLE 40 MG/PACK PACK NG SCH (10:14)
[2022-03-22] MEDS: PROSOURCE / PROSTAT (PYXIS) 30 ML UDC GT SCH ×3 (10:15→16:33)
[2022-03-22] MEDS: AMIODARONE HCL 200 MG TABLET GT SCH (10:15)
[2022-03-22] MEDS: DOXYCYCLINE 100 MG in IV D5W 100 ML IV SCH ×2 (10:16→20:56)
[2022-03-22] MEDS: NITROGLYCERIN 30 GM TUBE TP SCH ×2 (10:16→21:25)
[2022-03-22] MEDS: FUROSEMIDE 40 MG/4 ML VIAL IV SCH ×2 (10:17→16:33)
[2022-03-22] MEDS: METOPROLOL TARTRATE INJ 5 MG/5 ML AMPUL IV SCH ×2 (10:17→21:24)
[2022-03-22 11:31] LABS: BASOPHILS # (AUTO) 0.1 K/uL (0.0-0.2); BASOPHILS % (AUTO) 0.7 % (0.0-2.0); EOSINOPHILS % (AUTO) 6.5 % (0.0-6.0); HEMATOCRIT 27 % (39-51); HEMOGLOBIN 8.6 g/dL (13.5-17.5); LYMPHOCYTES # (AUTO) 1.1 K/uL (0.8-4.8); LYMPHOCYTES % (AUTO) 11.8 % (20.0-44.0); MEAN CORPUSCULAR HGB CONC 32 g/dl (31.0-36.0); MEAN CORPUSCULAR VOLUME 90 fL (80-96); MONOCYTES % (AUTO) 10.9 % (2.0-12.0); NEUTROPHILS # (AUTO) 6.4 K/uL (1.8-8.9); NEUTROPHILS % (AUTO) 70.1 % (43.0-81.0); PLATELET COUNT (AUTO) 141 K/uL (150-450); RED BLOOD CELL COUNT(AUTO) 3.03 MIL/uL (4.5-6.0); WHITE BLOOD COUNT (AUTO) 9.1 K/uL (4.3-11.0)
[2022-03-22 12:00] VITALS: BP 147/78
[2022-03-22] MEDS: MICAFUNGIN SODIUM 100 MG in IV NS 0.9% 100 ML IV SCH (12:02)
[2022-03-22 13:07] LABS: CALCIUM, SERUM 9.4 mg/dL (8.5-10.1); CREATININE 2.3 mg/dL (0.6-1.3); MAGNESIUM 1.5 mg/dL (1.8-2.4); PHOSPHORUS 3.7 mg/dL (2.5-4.9); POTASSIUM 3.5 mmol/L (3.5-5.1)
[2022-03-22] MEDS: DIGOXIN 0.25 MG TABLET GT SCH (13:26)
--- NOTE | 2022-03-22 13:56 | NUR ---
RN NOTES DR. RDZ MADE AWARE OF THE PATIENT'S LAB RESULT FOR SODIUM 154 AND CHLORIDE 114. AWAITING FOR RESPONSE.
[2022-03-22 16:00] VITALS: BP 150/82
--- NOTE | 2022-03-22 18:21 | NUR ---
RN CLOSING NOTES PATIENT ASLEEP IN BED. RESPONSIVE TO VERBAL STIMULI. HR AFIB AND SINUS RHYTHM, SINUS LETI HR RANGES 45-80S NOT IN DISTRESS NO COMPLAINTS OF PAIN NOTED. TRACH TO VENT SATING 100%, GT PATENT WITH TF NEPRO @ 45CCHR. FC PATENT AND INTACT DRAINING TO YELLOW COLORED URINE, FLEXI SEAL IN PLACE. CONSENT FOR PERMACATH INSERTION IN THE CHART SIGNED 03/21/2022. KEPT HOB ELEVATED. BED TO LOWEST POSITION AND LOCKED. CALL LIGHT WITHIN REACH. WILL ENDORSE TO NIGHT NURSE ON DUTY.
--- NOTE | 2022-03-22 19:35 | NUR ---
RN OPENING NOTES, RECEIVED PATIENT IN BED,AWAKE, A/0 X 2, NONVERBAL. ON TRACH TO [facility] VENT SETTING AND TOLERATING WELL. BREATHING EVEN AND UNLABORED. IV ACCESS ON LINWOOD MIDLINE INTACT AND PATENT. NO BLEEDING NOTED. ON GTUBE FEEDING AT 45CC/HR X24 HOURS. NO FACIAL GRIMACING NOTED. NO ACUTE DISTRESS. GARCIA CATHETER INTACT AND PATENT WITH DRAINING CLEAR YELLOW URINE. RECTAL FLEXI-SEAL TUBE IN PLACE. ALL SAFETY MEASURES IN PLACE. BED IN LOWEST POSITION AND LOCKED. SIDERAILS UP X3. PLACE CALL LIGHT WITHIN REACH. WILL CONTINUE TO MONITOR
[2022-03-22 20:00] VITALS: BP 152/80
[2022-03-22] MEDS: NEPRO 1,000 ML BOTTLE GT SCH (20:43)
--- NOTE | 2022-03-22 20:53 | NUR ---
2052 CRITICAL BLOOD CULTURE RESULT POSITIVE FOR YEAST RELAYED TO AGUSTIN SCHAEFFER WITH NO NEW ORDER.
[2022-03-23] VITALS (7 sets, daily range): BP systolic 126–169; BP diastolic 71–84
--- NOTE | 2022-03-23 06:35 | NUR ---
RN CLOSING NOTES, PATIENT IN BED,AWAKE, A/0 X 2, NONVERBAL. ON TRACH TO [facility] VENT SETTING AND TOLERATING WELL. O2 SAT 98%. BREATHING EVEN AND UNLABORED. IV ACCESS ON LINWOOD MIDLINE INTACT AND PATENT. NO BLEEDING NOTED. ON GTUBE FEEDING AT 45CC/HR X24 HOURS. NO FACIAL GRIMACING NOTED. NO ACUTE DISTRESS. ALL DUE MEDS GIVEN ORDERED GARCIA CATHETER INTACT AND PATENT WITH DRAINING CLEAR YELLOW URINE. RECTAL FLEXI-SEAL TUBE IN PLACE WITH 240CC OUTPUT. ALL SAFETY MEASURES IN PLACE. BED IN LOWEST POSITION AND LOCKED. SIDERAILS UP X3. PLACE CALL LIGHT WITHIN REACH. WILL ENDORSE TO MORNING SHIFT NURSE.
[2022-03-23 07:10] LABS: BASOPHILS # (AUTO) 0.1 K/uL (0.0-0.2); BASOPHILS % (AUTO) 0.6 % (0.0-2.0); EOSINOPHILS % (AUTO) 7.2 % (0.0-6.0); HEMATOCRIT 27 % (39-51); HEMOGLOBIN 8.4 g/dL (13.5-17.5); LYMPHOCYTES # (AUTO) 1.2 K/uL (0.8-4.8); LYMPHOCYTES % (AUTO) 12.9 % (20.0-44.0); MEAN CORPUSCULAR HGB CONC 32 g/dl (31.0-36.0); MEAN CORPUSCULAR VOLUME 90 fL (80-96); MONOCYTES % (AUTO) 10.7 % (2.0-12.0); NEUTROPHILS # (AUTO) 6.4 K/uL (1.8-8.9); NEUTROPHILS % (AUTO) 68.6 % (43.0-81.0); PLATELET COUNT (AUTO) 140 K/uL (150-450); RED BLOOD CELL COUNT(AUTO) 2.97 MIL/uL (4.5-6.0); WHITE BLOOD COUNT (AUTO) 9.4 K/uL (4.3-11.0)
--- NOTE | 2022-03-23 07:32 | NUR ---
RN OPENING NOTE PATIENT IN BED,ASLEEP, A/0 X 2, NONVERBAL. ON TRACHEOSTOMY TO [facility] VENT WITH ALL PRESCRIBED SETTINGS AND TOLERATING WELL. O2 SAT AT 99%. BREATHING EVEN AND UNLABORED AND NOT IN ACUTE DISTRES. IV ACCESS ON LINWOOD MIDLINE INTACT AND PATENT AND WITH NO SIGNS OF INFILTRATION. GTUBE INTACT AND COVERED WITH DRY DRESSING, WITH NEPRO FEEDING AT 45CC/HR X24 HOURS. WITH GARCIA CATHETER INTACT AND PATENT, DRAINING TO A CLEAR YELLOW URINE. RECTAL FLEXI-SEAL TUBE IN PLACE. ALL SAFETY MEASURES IN PLACE. BED IN LOWEST POSITION AND LOCKED. SIDERAILS UP X3. CALL LIGHT WITHIN REACH. WILL CONTINUE TO MONITOR THROUGHOUT SHIFT.
[2022-03-23 07:39] LABS: ALBUMIN 1.8 g/dL (3.4-5.0); BILIRUBIN,TOTAL 0.7 mg/dL (0.2-1.0); CALCIUM, SERUM 8.9 mg/dL (8.5-10.1); MAGNESIUM 1.6 mg/dL (1.8-2.4); PHOSPHORUS 3.2 mg/dL (2.5-4.9); POTASSIUM 3.2 mmol/L (3.5-5.1); TOTAL PROTEIN, SERUM 7.3 g/dL (6.4-8.2)
[2022-03-23] MEDS: COLISTIMETHATE SODIUM 150 MG CBA VIAL NEB SCH ×2 (07:42→19:54)
[2022-03-23] MEDS ORDERED: POTASSIUM CHLORIDE 20 MEQ POWDER PACKET NG SCH (08:00)
[2022-03-23] MEDS: DOXYCYCLINE 100 MG in IV D5W 100 ML IV SCH ×2 (09:10→20:44)
[2022-03-23] MEDS: PROSOURCE / PROSTAT (PYXIS) 30 ML UDC GT SCH ×3 (09:11→16:21)
[2022-03-23] MEDS: NITROGLYCERIN 30 GM TUBE TP SCH ×2 (09:11→20:43)
[2022-03-23] MEDS: PANTOPRAZOLE 40 MG/PACK PACK NG SCH (09:11)
[2022-03-23] MEDS: AMOX/CLAVULANATE 250 MG TABLET PO SCH ×2 (09:12→20:44)
[2022-03-23] MEDS: METOPROLOL TARTRATE INJ 5 MG/5 ML AMPUL IV SCH ×2 (09:12→20:41)
[2022-03-23] MEDS: FUROSEMIDE 40 MG/4 ML VIAL IV SCH ×2 (09:12→16:24)
[2022-03-23] MEDS: AMIODARONE HCL 200 MG TABLET GT SCH (09:13)
[2022-03-23] MEDS ORDERED: MAGNESIUM OXIDE 400 MG TABLET NG ONE (11:00)
[2022-03-23] MEDS: MICAFUNGIN SODIUM 100 MG in IV NS 0.9% 100 ML IV SCH (11:37)
[2022-03-23] MEDS: DIGOXIN 0.25 MG TABLET GT SCH (12:35)
[2022-03-23] MEDS: Potassium Chloride 20 MEQ in IV D5W 1,000 ML IV SCH ×2 (13:01→22:16)
--- NOTE | 2022-03-23 17:31 | NUR ---
RECEIVED PATIENT ON VENT SETTINGS OF AC 18, VT 500, FIO2 40%, PEEP 5. HAS A TRACH SHILEY 8 XLT. AIRWAY PATENT AND SECURE. SATURATIONS AT 100%. Q2 VENT CHECK, SUCTION PRN. AMBU BAG AT BEDSIDE. VENT PLUGGED INTO RED OUTLET. ALARMS SET AND AUDIBLE. SPARE TRACH AT BEDSIDE.
--- NOTE | 2022-03-23 18:32 | NUR ---
RN CLOSING NOTE PATIENT IN BED,ASLEEP, A/0 X 2, NONVERBAL. ON TRACHEOSTOMY TO [facility] VENT WITH ALL PRESCRIBED SETTINGS AND TOLERATING WELL. O2 SAT AT 100% AND NOT IN ACUTE DISTRESS. AFEBRILE AT 98.2F. IV ACCESS ON LINWOOD MIDLINE INTACT AND PATENT AND WITH NO SIGNS OF INFILTRATION. GTUBE INTACT AND COVERED WITH DRY DRESSING, WITH NEPRO FEEDING AT 45CC/HR X24 HOURS. WITH GARCIA CATHETER INTACT AND PATENT, DRAINING TO A CLEAR YELLOW URINE. RECTAL FLEXI-SEAL TUBE IN PLACE. ALL SAFETY MEASURES IN PLACE. BED IN LOWEST POSITION AND LOCKED. SIDERAILS UP X3. CALL LIGHT WITHIN REACH. ALL MEDICATIONS GIVEN AND PATIENT REMAINED STABLE THROUGHOUT THE SHIFT. WILL ENDORSE TO SALES ATTENDANT BUILDING MATERIALS RN.
--- NOTE | 2022-03-23 19:46 | NUR ---
grinding wheel facer Opening Note Pt received lying in bed attached to ventilator with AC 18, TV 500, FiO2 40%, and PEEP 5. Pt tolerating vent settings well; no s/s of respiratory distress or discomfort, non-labored breathing. Pt attached to external monitor, SR. Gardiner and FlexiSeal patent and intact. GT dressing C/D/I. LINWOOD midline is intact and patent. Bed in lowest position, side rails up x3, call light within reach. Will continue to monitor throughout the night.
[2022-03-23] MEDS: NEPRO 1,000 ML BOTTLE GT SCH (23:19)
[2022-03-24] VITALS: BP 123/94
[2022-03-24 04:00] VITALS: BP 131/88
[2022-03-24 07:05] LABS: ALBUMIN 1.8 g/dL (3.4-5.0); BILIRUBIN,TOTAL 0.6 mg/dL (0.2-1.0); CALCIUM, SERUM 8.7 mg/dL (8.5-10.1); CREATININE 1.8 mg/dL (0.6-1.3); MAGNESIUM 1.5 mg/dL (1.8-2.4); POTASSIUM 3.1 mmol/L (3.5-5.1); TOTAL PROTEIN, SERUM 7.2 g/dL (6.4-8.2)
--- NOTE | 2022-03-24 07:08 | NUR ---
MANAGER OF CHANGE CLOSING NOTE PT IN BED, ALERT, NONVERBAL BUT NODS TO QUESTIONS. PT ON VENT; TOLERATES VENT SETTINGS WELL; SHOWS NO S/S OF RESP DISTRESS OR DISCOMFORT, APPEARS COMFORTABLE. VSS AND SR. GT DRESSING CHANGED AND IS C/D/I. TOLERATING TUBE FEEDING WELL. NO RESIDUAL NOTED. LINWOOD MIDLINE INTACT AND PATENT. WILL ENDORSE TO DAYSHIFT NURSE TO CONTINUE CARE.
[2022-03-24 08:00] VITALS: BP 166/70
[2022-03-24] MEDS: Potassium Chloride 20 MEQ in IV D5W 1,000 ML IV SCH ×2 (08:17→18:57)
[2022-03-24 08:43] LABS: BASOPHILS % (AUTO) 0.5 % (0.0-2.0); EOSINOPHILS % (AUTO) 7.4 % (0.0-6.0); HEMATOCRIT 26 % (39-51); HEMOGLOBIN 8.1 g/dL (13.5-17.5); LYMPHOCYTES # (AUTO) 1.5 K/uL (0.8-4.8); MEAN CORPUSCULAR HGB CONC 31 g/dl (31.0-36.0); MEAN CORPUSCULAR VOLUME 90 fL (80-96); MONOCYTES # (AUTO) 0.8 K/uL (0.1-1.30); MONOCYTES % (AUTO) 8.8 % (2.0-12.0); NEUTROPHILS # (AUTO) 6.2 K/uL (1.8-8.9); NEUTROPHILS % (AUTO) 67.3 % (43.0-81.0); PLATELET COUNT (AUTO) 115 K/uL (150-450); RED BLOOD CELL COUNT(AUTO) 2.87 MIL/uL (4.5-6.0); WHITE BLOOD COUNT (AUTO) 9.3 K/uL (4.3-11.0)
[2022-03-24] MEDS: AMIODARONE HCL 200 MG TABLET GT SCH (08:56)
[2022-03-24] MEDS: COLISTIMETHATE SODIUM 150 MG CBA VIAL NEB SCH ×2 (08:56→19:51)
[2022-03-24] MEDS: PANTOPRAZOLE 40 MG/PACK PACK NG SCH (08:57)
[2022-03-24] MEDS: DOXYCYCLINE 100 MG in IV D5W 100 ML IV SCH ×2 (08:57→20:14)
[2022-03-24] MEDS: FUROSEMIDE 40 MG/4 ML VIAL IV SCH ×2 (08:58→17:12)
[2022-03-24] MEDS: METOPROLOL TARTRATE INJ 5 MG/5 ML AMPUL IV SCH ×2 (08:58→20:48)
[2022-03-24] MEDS: NITROGLYCERIN 30 GM TUBE TP SCH ×2 (08:59→20:49)
[2022-03-24] MEDS: PROSOURCE / PROSTAT (PYXIS) 30 ML UDC GT SCH ×3 (09:01→17:14)
[2022-03-24] MEDS: AMOX/CLAVULANATE 250 MG TABLET PO SCH ×2 (09:35→20:15)
[2022-03-24] MEDS ORDERED: POTASSIUM CHLORIDE 20 MEQ POWDER PACKET GT SCH (10:00)
[2022-03-24] MEDS ORDERED: Magnesium 1GM/D5W 100ML PREMIX 100 ML IV SCH (10:00)
[2022-03-24] MEDS: POTASSIUM CHLORIDE 20 MEQ TAB.PRT.SR PO SCH ×3 (10:55→12:14)
[2022-03-24 12:00] VITALS: BP 152/90
[2022-03-24] MEDS: MICAFUNGIN SODIUM 100 MG in IV NS 0.9% 100 ML IV SCH (12:14)
[2022-03-24] MEDS: DIGOXIN 0.25 MG TABLET GT SCH (13:29)
[2022-03-24 16:00] VITALS: BP 150/84
--- NOTE | 2022-03-24 18:32 | NUR ---
MARKETING ANALYTICS LEAD CLOSING NOTE PT RESTING IN BED. AWAKE AND ALERT, NONVERBAL BUT RESPONDS TO STIMULI. PT ON TRACH AND VENT WITH [facility] SETTINGS, TOLERATING WELL. NO S/S OF RESP DISTRESS. APPEARS COMFORTABLE. GT IN PLACE AND TOLERATING TUBE FEEDING NEPRO @ 45CC/HR WELL. ASPIRATION PREC MAINTAINED. LINWOOD MIDLINE INTACT AND PATENT. WILL ENDORSE TO NEXT SHIFT. SAFETY MEASURES FOLLOWED. ALL DUE MEDS GIVEN.
--- NOTE | 2022-03-24 19:10 | NUR ---
RN NOTE RECEIVED PATIENT IN BED RESTING ON MECHANICAL VENT ON G-TUBE FEEDING NEPRO 45CC/HR CHECKED PLACEMENT IN PLACE NO RESIDUAL NOTED,GARCIA CATHETER IN PLACE URINE DRAINING YELLOW AND CLEAR BY GRAVITY,RECTAL TUBE IN PLACE,IV SITE IS ON RIGHT UPPER ARM MIDLINE INTACT PATENT,SAFETY MEASURE IMPLEMENT,HEAD OF THE BED ELEVATED,BED IN LOW POSITION AND LOCKED CONTINUE TO MONITOR.
[2022-03-24 20:00] VITALS: BP 133/77
[2022-03-24] MEDS ORDERED: Potassium Chloride 30 MEQ in IV D5W 1,000 ML IV SCH (22:30)
[2022-03-25] VITALS: BP 108/85
[2022-03-25] MEDS ORDERED: IV PREMIX D5 1/2NS + KCL 1,000 ML IV ONE (00:47)
[2022-03-25] MEDS: Potassium Chloride 40 MEQ in IV D5/0.45 NACL 1,000 ML IV SCH ×3 (00:54→21:52)
[2022-03-25 04:00] VITALS: BP 113/81
[2022-03-25] MEDS: NEPRO 1,000 ML BOTTLE GT SCH (06:39)
--- NOTE | 2022-03-25 06:55 | NUR ---
RN NOTE PATIENT REMAINS ON MECHANICAL VENT NO SOB NOT ACUTE DISTRESS NOTED,ALL DUE MEDS GIVEN MD ORDERED WOUND TREATMENT DONE,KEPT CLEAN AND DRY ALL THE TIME,TURNED AND REPOSITIONED EVERY 2 HOURS,ALL NEEDS MET ENDORSE NEXT COMING SHIFT FOR CONTINUATION OF CARE.
[2022-03-25 07:39] LABS: BASOPHILS # (AUTO) 0.1 K/uL (0.0-0.2); BASOPHILS % (AUTO) 0.5 % (0.0-2.0); EOSINOPHILS % (AUTO) 8.6 % (0.0-6.0); HEMATOCRIT 29 % (39-51); HEMOGLOBIN 8.9 g/dL (13.5-17.5); LYMPHOCYTES # (AUTO) 1.7 K/uL (0.8-4.8); LYMPHOCYTES % (AUTO) 16.3 % (20.0-44.0); MEAN CORPUSCULAR HGB CONC 31 g/dl (31.0-36.0); MEAN CORPUSCULAR VOLUME 91 fL (80-96); MONOCYTES # (AUTO) 0.7 K/uL (0.1-1.30); MONOCYTES % (AUTO) 7.2 % (2.0-12.0); NEUTROPHILS # (AUTO) 6.9 K/uL (1.8-8.9); NEUTROPHILS % (AUTO) 67.4 % (43.0-81.0); PLATELET COUNT (AUTO) 123 K/uL (150-450); RED BLOOD CELL COUNT(AUTO) 3.14 MIL/uL (4.5-6.0); WHITE BLOOD COUNT (AUTO) 10.2 K/uL (4.3-11.0)
--- NOTE | 2022-03-25 07:53 | NUR ---
RN OPENING NOTE PATIENT RECEIVED IN BED, NON VERBAL, ABLE TO RESPONDS ALL STIMULI. IN NO ACUTE DISTRESS NOTED. RESPIRATORY EVEN AND UNLABORED ON TRACH WITH VENTILATOR. SKIN IS WARM TO TOUCH, KEEP CLEAN/DRY, INTACT IV SITE. ON RECTAL TUBE AND GARCIA CONNECTING BAG. KEPT ELEVATED HOB FOR ENSURE AIRWAY AND ASPIRATION PRECAUTION, ALSO LOWEST POSITION OF THE BED, S/R UP X 3, ALL SAFETY PRECAUTION APPLIED. CALL LIGHT WITHIN REACH, WILL CONTINUE TO MONITOR.
[2022-03-25 08:00] VITALS: BP 140/78
[2022-03-25 08:17] LABS: ALBUMIN 1.9 g/dL (3.4-5.0); BILIRUBIN,TOTAL 0.5 mg/dL (0.2-1.0); CALCIUM, SERUM 8.6 mg/dL (8.5-10.1); CREATININE 1.5 mg/dL (0.6-1.3); MAGNESIUM 1.4 mg/dL (1.8-2.4); PHOSPHORUS 2.5 mg/dL (2.5-4.9); TOTAL PROTEIN, SERUM 7.3 g/dL (6.4-8.2)
[2022-03-25] MEDS: PANTOPRAZOLE 40 MG/PACK PACK NG SCH (08:31)
[2022-03-25] MEDS: AMIODARONE HCL 200 MG TABLET GT SCH (08:31)
[2022-03-25] MEDS: FUROSEMIDE 40 MG/4 ML VIAL IV SCH ×2 (08:31→17:18)
[2022-03-25] MEDS: AMOX/CLAVULANATE 250 MG TABLET PO SCH ×2 (08:32→21:58)
[2022-03-25] MEDS: NITROGLYCERIN 30 GM TUBE TP SCH ×2 (08:34→22:02)
[2022-03-25] MEDS: METOPROLOL TARTRATE INJ 5 MG/5 ML AMPUL IV SCH ×2 (08:38→22:01)
[2022-03-25] MEDS: PROSOURCE / PROSTAT (PYXIS) 30 ML UDC GT SCH ×3 (08:40→17:18)
--- NOTE | 2022-03-25 08:54 | NUR ---
director television news note per dr elizabeth mena to give free water flush 200 ml q6 hour, order carried out
[2022-03-25] MEDS: COLISTIMETHATE SODIUM 150 MG CBA VIAL NEB SCH ×2 (09:04→19:33)
[2022-03-25] MEDS: DOXYCYCLINE 100 MG in IV D5W 100 ML IV SCH ×2 (09:50→21:52)
[2022-03-25] MEDS ORDERED: Magnesium 1GM/D5W 100ML PREMIX 100 ML IV SCH (10:00)
[2022-03-25] MEDS ORDERED: POTASSIUM CHLORIDE 20 MEQ POWDER PACKET GT SCH (10:00)
--- NOTE | 2022-03-25 10:00 | NUR ---
PATIENT HAS ORDERED CT ABD, HOWEVER, PATIENT WT MORE THAN 250LB, RADIOLOGY DECLINED. MADE AWARE.
[2022-03-25 12:00] VITALS: BP 141/71
[2022-03-25] MEDS: MICAFUNGIN SODIUM 100 MG in IV NS 0.9% 100 ML IV SCH (12:44)
[2022-03-25] MEDS: DIGOXIN 0.25 MG TABLET GT SCH (12:45)
--- NOTE | 2022-03-25 19:29 | NUR ---
RN CLOSE NOTE PATIENT IN BED, IN NO ACUTE DISTRESS OBSERVED. RESPIRATION EVEN AND UNLABORED ON TRACH AND VENTILATOR. SKIN IS WARM TO TOUCH KEEP CLEAN//DRY, INTACT IV SITE. KEPT ELEVATED HOB FOR ENSURE AIRWAY AND ASPIRATION PRECAUTION. ALSO LOWEST POSITION OF THE BED FOR SAFETY. CALL LIGHT WITHIN REACH, WILL ENDORSE TO SILVERWARE WASHER.
--- NOTE | 2022-03-25 19:35 | NUR ---
[employer] SCHOOL PRINCIPAL OPENING NOTES RECEIVED PATIENT LAYING AWAKE IN BED. A/O X3-4. PATIENT WITH REGULAR AND UNLABORED BREATHING ON MECH VENT., TOLERATED SETTINGS WELL. NO SIGNS AND SYMPTOMS OF DISTRESS NOTED AT THIS TIME. NO COMPLAINS OF PAIN OR DISCOMFORT AT THIS TIME. IV ACCESS LINWOOD MIDLINE INFUSING KCL 40 MEQ @ 100 ML/HR. IV ACCESS PATENT AND INTACT. SAFETY PRECAUTIONS ENFORCED WITH BED LOCKED AND AT LOWEST POSITION. SIDE RAILS UP X2. CALL LIGHT WITHIN REACH AT ALL TIMES. WILL CONTINUE TO MONITOR PATIENT.
[2022-03-25 20:00] VITALS: BP 110/73
[2022-03-26] VITALS: BP 113/80
[2022-03-26 04:00] VITALS: BP 112/73
--- NOTE | 2022-03-26 06:52 | NUR ---
NITRATE OPERATOR CLOSING NOTES PATIENT STILL LAYING AWAKE IN BED. A/O X3-4. PATIENT WITH REGULAR AND UNLABORED BREATHING ON MECH VENT., TOLERATED SETTINGS WELL. NO SIGNS AND SYMPTOMS OF DISTRESS NOTED AT THIS TIME. NO COMPLAINS OF PAIN OR DISCOMFORT AT THIS TIME. PATIENT ON TELE MONITOR READING SR @ 79 BPM. IV ACCESS LINWOOD MIDLINE INFUSING KCL 40 MEQ @ 100 ML/HR. IV ACCESS PATENT AND INTACT. SAFETY PRECAUTIONS ENFORCED WITH BED LOCKED AND AT LOWEST POSITION. SIDE RAILS UP X2. CALL LIGHT WITHIN REACH AT ALL TIMES. WILL ENDORSE CONTINUITY OF CARE TO DAY SHIFT NURSE.
--- NOTE | 2022-03-26 07:37 | NUR ---
RN OPENING NOTE PATIENT IN BED,ASLEEP, A/0 X 3, NONVERBAL. ON TRACHEOSTOMY TO [facility] VENT WITH ALL PRESCRIBED SETTINGS. O2 SAT AT 96%, BREATHING EVEN AND UNLABORED AND NOT IN ACUTE DISTRESS. IV ACCESS ON LINWOOD MIDLINE INTACT AND PATENT AND WITH NO SIGNS OF INFILTRATION. GTUBE INTACT AND COVERED WITH DRY DRESSING, WITH NEPRO FEEDING AT 45CC/HR. WITH GARCIA CATHETER INTACT AND PATENT, DRAINING TO A CLEAR YELLOW URINE. RECTAL FLEXI-SEAL TUBE IN PLACE. ALL SAFETY MEASURES IN PLACE. BED IN LOWEST POSITION AND LOCKED. SIDERAILS UP X3. CALL LIGHT WITHIN REACH. WILL CONTINUE TO MONITOR THROUGHOUT SHIFT.
[2022-03-26] MEDS: COLISTIMETHATE SODIUM 150 MG CBA VIAL NEB SCH (07:40)
[2022-03-26 08:00] VITALS: BP 155/59
[2022-03-26] MEDS: PANTOPRAZOLE 40 MG/PACK PACK NG SCH (08:10)
[2022-03-26] MEDS: NITROGLYCERIN 30 GM TUBE TP SCH ×2 (08:10→21:16)
[2022-03-26] MEDS: PROSOURCE / PROSTAT (PYXIS) 30 ML UDC GT SCH ×3 (08:10→16:20)
[2022-03-26] MEDS: FUROSEMIDE 40 MG/4 ML VIAL IV SCH (08:10)
[2022-03-26] MEDS: METOPROLOL TARTRATE INJ 5 MG/5 ML AMPUL IV SCH ×2 (08:11→21:15)
[2022-03-26] MEDS: AMOX/CLAVULANATE 250 MG TABLET PO SCH (08:12)
[2022-03-26] MEDS: AMIODARONE HCL 200 MG TABLET GT SCH (08:12)
[2022-03-26] MEDS: DOXYCYCLINE 100 MG in IV D5W 100 ML IV SCH (08:13)
[2022-03-26] MEDS: Potassium Chloride 60 MEQ in IV D5W 1,000 ML IV SCH ×2 (09:35→17:57)
[2022-03-26 12:00] VITALS: BP 121/69
[2022-03-26] MEDS: MICAFUNGIN SODIUM 100 MG in IV NS 0.9% 100 ML IV SCH (12:07)
[2022-03-26] MEDS: NEPRO 1,000 ML BOTTLE GT SCH (12:07)
[2022-03-26] MEDS: DIGOXIN 0.25 MG TABLET GT SCH (12:11)
[2022-03-26 14:03] LABS: BASOPHILS # (AUTO) 0.1 K/uL (0.0-0.2); EOSINOPHILS % (AUTO) 7.6 % (0.0-6.0); HEMATOCRIT 28 % (39-51); HEMOGLOBIN 8.5 g/dL (13.5-17.5); LYMPHOCYTES # (AUTO) 1.8 K/uL (0.8-4.8); LYMPHOCYTES % (AUTO) 16.4 % (20.0-44.0); MEAN CORPUSCULAR HGB CONC 31 g/dl (31.0-36.0); MEAN CORPUSCULAR VOLUME 90 fL (80-96); MONOCYTES # (AUTO) 0.8 K/uL (0.1-1.30); MONOCYTES % (AUTO) 7.4 % (2.0-12.0); NEUTROPHILS # (AUTO) 7.5 K/uL (1.8-8.9); NEUTROPHILS % (AUTO) 67.6 % (43.0-81.0); PLATELET COUNT (AUTO) 107 K/uL (150-450); RED BLOOD CELL COUNT(AUTO) 3.05 MIL/uL (4.5-6.0); WHITE BLOOD COUNT (AUTO) 11.1 K/uL (4.3-11.0)
[2022-03-26 14:48] LABS: BILIRUBIN,TOTAL 0.6 mg/dL (0.2-1.0); CALCIUM, SERUM 8.5 mg/dL (8.5-10.1); CREATININE 1.5 mg/dL (0.6-1.3); MAGNESIUM 1.4 mg/dL (1.8-2.4); PHOSPHORUS 2.1 mg/dL (2.5-4.9); POTASSIUM 3.4 mmol/L (3.5-5.1); TOTAL PROTEIN, SERUM 7.2 g/dL (6.4-8.2)
[2022-03-26] MEDS ORDERED: NEUTRA PHOS 1 POWD.PACKET GT ONE (16:00)
[2022-03-26 16:39] VITALS: BP 144/66
[2022-03-26] MEDS: Magnesium 1GM/D5W 100ML PREMIX 100 ML IV SCH ×2 (18:11→19:19)
--- NOTE | 2022-03-26 18:33 | NUR ---
RN CLOSING NOTE PATIENT IN BED,ASLEEP, A/0 X 3, NONVERBAL. ON TRACHEOSTOMY TO [facility] VENT WITH ALL PRESCRIBED SETTINGS. O2 SAT AT 96%, BREATHING EVEN AND UNLABORED AND NOT IN ACUTE DISTRESS. IV ACCESS ON LINWOOD MIDLINE INTACT AND PATENT AND WITH NO SIGNS OF INFILTRATION. GTUBE INTACT AND COVERED WITH DRY DRESSING, WITH NEPRO FEEDING AT 45CC/HR. WITH GARCIA CATHETER INTACT AND PATENT, DRAINING TO A CLEAR YELLOW URINE. RECTAL FLEXI-SEAL TUBE IN PLACE. ALL SAFETY MEASURES IN PLACE. BED IN LOWEST POSITION AND LOCKED. SIDERAILS UP X3. CALL LIGHT WITHIN REACH. ALL DUE MEDICATIONS GIVEN AND PATIENT REMAINED STABLE THROUGHOUT SHIFT. WILL ENDORSE TO DOG WARDEN.
--- NOTE | 2022-03-26 19:35 | NUR ---
RN NOTES RECEIVED PT FOR CONTINUITY OF CARE. PATIENT A/OX3-4 IN NO S/SX OF ACUTE DISTRESS AT THIS TIME; CURRENTLY ON MECHANICAL VENT; SETTING PRESCRIBED, WITH 02 SAT >95% AT THIS TIME. WITH IV ACCESS PATENT, INTACT AND FLUSHING WELL.WILL ENSURE SAFETY MEASURES WITHIN THE SHIFT. PATIENT BED ALARM IS ON. HEAD OF BED ELEVATED. BED IS LOCKED, IN LOWEST POSITION AND SIDE RAILS UP. CALL LIGHT WITHIN REACH OF THE PATIENT. APPLICABLE ISOLATION PRECAUTIONS IN PLACE. WILL CONTINUE TO MONITOR AND REASSESS FOR ANY CHANGES AND WILL CARRY OUT ANY ONGOING AND ACTIVE MD ORDER.
[2022-03-26 20:00] VITALS: BP 135/77
[2022-03-27] VITALS: BP 137/88
[2022-03-27] MEDS: Potassium Chloride 60 MEQ in IV D5W 1,000 ML IV SCH ×3 (02:01→18:16)
[2022-03-27 04:00] VITALS: BP 147/82
--- NOTE | 2022-03-27 06:33 | NUR ---
RN CLOSING NOTE: PATIENT REMAINS IN ROOM IN NO SIGNS OF RESPIRATORY DISTRESS, PATIENT STILL ON MECH VENT; SETTINGS PRESCRIBED;TOLERATING WELL SATURATING @ >95% SP02. SAFETY MEASURES IMPLEMENTED, BED IN LOWEST POSITION, LOCKED, SIDE RAILS UP, CALL LIGHT WITHIN REACH. ALL NEEDS AND ORDERS ADDRESSED DURING THE SHIFT. IV ACCESS MAINTAINED INTACT, SECURED AND FLUSHING WELL. ALL DUE MEDS GIVEN ORDERED & SCHEDULED. PATIENT KEPT CLEAN AND COMFORTABLE WITHIN THE SHIFT. PATIENT ENDORSED TO INCOMING SHIFT RN WITH STABLE VITAL SIGN AND FOR CONTINUITY OF CARE.
[2022-03-27 06:47] LABS: ALBUMIN 1.9 g/dL (3.4-5.0); BILIRUBIN,TOTAL 0.8 mg/dL (0.2-1.0); CALCIUM, SERUM 8.2 mg/dL (8.5-10.1); CREATININE 1.3 mg/dL (0.6-1.3); MAGNESIUM 1.6 mg/dL (1.8-2.4); PHOSPHORUS 2.2 mg/dL (2.5-4.9); POTASSIUM 3.9 mmol/L (3.5-5.1); TOTAL PROTEIN, SERUM 7.1 g/dL (6.4-8.2)
--- NOTE | 2022-03-27 07:25 | NUR ---
RN OPENING NOTE RECEIVED PATIENT IN BED,ASLEEP, ALERT/ORIENTED X 3, NONVERBAL. ON TRACHEOSTOMY TO [facility] VENT WITH ALL PRESCRIBED SETTINGS. O2 SAT AT 100%, BREATHING EVEN AND UNLABORED AND NOT IN ACUTE DISTRESS AT THE TIME. IV ACCESS ON LINWOOD MIDLINE INTACT AND PATENT AND WITH NO SIGNS OF INFILTRATION. GTUBE INTACT AND PATENT, NO RESIDUAL NOTED AT THE TIME. WITH NEPRO FEEDING AT 45CC/HR. WITH GARCIA CATHETER INTACT AND PATENT, DRAINING TO A CLEAR YELLOW URINE. RECTAL FLEXI-SEAL TUBE IN PLACE. ALL SAFETY MEASURES IN PLACE. BED IN LOWEST POSITION AND LOCKED. SIDE RAILS UP X3. CALL LIGHT WITHIN REACH. WILL CONTINUE TO MONITOR PATIENT THROUGHOUT SHIFT.
[2022-03-27 07:47] LABS: BASOPHILS # (AUTO) 0.1 K/uL (0.0-0.2); MEAN CORPUSCULAR VOLUME 90 fL (80-96); MONOCYTES # (AUTO) 0.9 K/uL (0.1-1.30)
--- NOTE | 2022-03-27 07:47 | NUR ---
RN OPENING NOTE PATIENT IS IN BED, OBTUNDED WITH EYES OPEN, NON VERBAL. ON SEMI MCCABE'S POSITION. WITH TRACHEOSTOMY CONNECTED TO MECHANICAL VENTILATOR ON AC MODE. NOT IN LABORED BREATHING OR RESPIRATORY DISTRESS. 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 WITH RIGHT UPPER ARM MIDLINE, INTACT AND PATENT AND WITH NO SIGNS OF INFILTRATION. WITH SOFT MITTEN RESTRAINT ON RIGHT HAND, CIRCULATION ON RIGHT HAND IS ADEQUATE. BED IS LOCKED IN THE LOWEST POSITION, 3 GUARD RAILS RAISED, CALL SALES WITHIN REACH, AND ALL HOSPITAL SAFETY PRECAUTIONS IN PLACE. WILL CONTINUE TO MONITOR THROUGHOUT SHIFT. Addendum: 03/27/22 at 0804 by RAYMON DOMINGUEZ RN DISREGARD NOTE. WRONG PATIENT.
[2022-03-27 08:00] VITALS: BP 143/75
[2022-03-27] MEDS: AMIODARONE HCL 200 MG TABLET GT SCH (09:08)
[2022-03-27] MEDS: METOPROLOL TARTRATE INJ 5 MG/5 ML AMPUL IV SCH ×2 (09:08→20:23)
[2022-03-27] MEDS: PANTOPRAZOLE 40 MG/PACK PACK NG SCH (09:08)
[2022-03-27] MEDS: ACETAMINOPHEN 650 MG/20.3 ML UDC GT PRN (09:09)
[2022-03-27] MEDS: NITROGLYCERIN 30 GM TUBE TP SCH ×2 (09:09→20:23)
[2022-03-27] MEDS: PROSOURCE / PROSTAT (PYXIS) 30 ML UDC GT SCH ×3 (09:09→18:14)
[2022-03-27] MEDS: Magnesium 1GM/D5W 100ML PREMIX 100 ML IV SCH ×2 (09:10→10:25)
[2022-03-27 09:17] LABS: BASOPHILS % (AUTO) 1.1 % (0.0-2.0); EOSINOPHILS % (AUTO) 7.5 % (0.0-6.0); HEMATOCRIT 26 % (39-51); HEMOGLOBIN 8.1 g/dL (13.5-17.5); LYMPHOCYTES # (AUTO) 1.7 K/uL (0.8-4.8); LYMPHOCYTES % (AUTO) 13.9 % (20.0-44.0); MEAN CORPUSCULAR HGB CONC 31 g/dl (31.0-36.0); MONOCYTES % (AUTO) 7.3 % (2.0-12.0); NEUTROPHILS # (AUTO) 8.4 K/uL (1.8-8.9); NEUTROPHILS % (AUTO) 70.2 % (43.0-81.0); PLATELET COUNT (AUTO) 100 K/uL (150-450); RED BLOOD CELL COUNT(AUTO) 2.86 MIL/uL (4.5-6.0); WHITE BLOOD COUNT (AUTO) 11.9 K/uL (4.3-11.0)
[2022-03-27] MEDS ORDERED: NEUTRA PHOS 1 POWD.PACKET GT ONE (09:30)
[2022-03-27] MEDS: MICAFUNGIN SODIUM 100 MG in IV NS 0.9% 100 ML IV SCH (11:48)
[2022-03-27 12:00] VITALS: BP 137/64
[2022-03-27] MEDS: DIGOXIN 0.25 MG TABLET GT SCH (12:29)
--- NOTE | 2022-03-27 12:51 | NUR ---
RN NOTE REPORT GIVEN TO BRYAN FOR CONTINUITY OF CARE.
[2022-03-27 16:00] VITALS: BP 153/72
[2022-03-27 20:00] VITALS: BP 136/82
[2022-03-27] MEDS: NEPRO 1,000 ML BOTTLE GT SCH (20:07)
[2022-03-28] VITALS: BP 151/80
[2022-03-28] MEDS: Potassium Chloride 60 MEQ in IV D5W 1,000 ML IV SCH ×2 (03:16→11:38)
[2022-03-28 04:00] VITALS: BP 148/75
[2022-03-28 07:22] LABS: BASOPHILS # (AUTO) 0.1 K/uL (0.0-0.2); BASOPHILS % (AUTO) 0.6 % (0.0-2.0); BILIRUBIN,TOTAL 0.6 mg/dL (0.2-1.0); CALCIUM, SERUM 8.3 mg/dL (8.5-10.1); CREATININE 1.3 mg/dL (0.6-1.3); EOSINOPHILS % (AUTO) 7.7 % (0.0-6.0); HEMATOCRIT 25 % (39-51); HEMOGLOBIN 8.1 g/dL (13.5-17.5); LYMPHOCYTES # (AUTO) 1.8 K/uL (0.8-4.8); LYMPHOCYTES % (AUTO) 16.7 % (20.0-44.0); MAGNESIUM 1.7 mg/dL (1.8-2.4); MEAN CORPUSCULAR HGB CONC 32 g/dl (31.0-36.0); MEAN CORPUSCULAR VOLUME 90 fL (80-96); MONOCYTES # (AUTO) 0.8 K/uL (0.1-1.30); MONOCYTES % (AUTO) 7.7 % (2.0-12.0); NEUTROPHILS # (AUTO) 7.2 K/uL (1.8-8.9); NEUTROPHILS % (AUTO) 67.3 % (43.0-81.0); PHOSPHORUS 2.9 mg/dL (2.5-4.9); PLATELET COUNT (AUTO) 90 K/uL (150-450); POTASSIUM 4.7 mmol/L (3.5-5.1); RED BLOOD CELL COUNT(AUTO) 2.83 MIL/uL (4.5-6.0); WHITE BLOOD COUNT (AUTO) 10.7 K/uL (4.3-11.0)
--- NOTE | 2022-03-28 07:26 | NUR ---
RN NOTE ENDORSED CARE OF PATIENT TO AM NURSE IN STABLE CONDITIONS. ALL PATIENT NEEDS MET THROUGHOUT SHIFT. ALL DUE MEDS GIVEN. NO SIGNIFICANT FINDINGS UPON ALL NURSING ASSESSMENTS. ALL SAFETY MEASURES IMPLEMENTED PER HOSPITAL PROTOCOLS. ENDORSED TO AM NURSE FOR VY.
--- NOTE | 2022-03-28 08:40 | NUR ---
SHOW HOST/HOSTESS NOTES TOOK OVER CARE, REPORT GIVEN BY RIKY ARMENTA. PATIENT LYING IN BED, HEAD OF BED ELEVATED. ALERT ORIENTED X 3-4, HEAD NODS TO RESPONSE TO SIMPLE QUESTION. NO ACUTE DISTRESS NOTED.BREATHING UNLABORED. ON VENTILATOR ON PRESCRIBED SETTING. SINUS RHYTHM ON TELE MONITOR. GARCIA CATHETER AND RECTAL TUBE PATENT AND INTACT. GT FEEDING PATENT AND INTACT RUNNING ORDERED SETTING. SAFETY MEASURES IN PLACE, CALL LIGHT WITHIN REACH. WILL CONTINUE TO MONITOR ACCORDINGLY. Addendum: 03/28/22 at 1915 by VENKAT MOSQUEDA RN ADDENDUM: PATIENT ABLE TO MOUTH WORDS.
[2022-03-28 08:50] VITALS: BP 141/74
[2022-03-28] MEDS: PANTOPRAZOLE 40 MG/PACK PACK NG SCH (09:37)
[2022-03-28] MEDS: AMIODARONE HCL 200 MG TABLET GT SCH (09:38)
[2022-03-28] MEDS: NITROGLYCERIN 30 GM TUBE TP SCH ×2 (09:39→20:29)
[2022-03-28] MEDS: PROSOURCE / PROSTAT (PYXIS) 30 ML UDC GT SCH ×3 (09:39→17:37)
[2022-03-28] MEDS: METOPROLOL TARTRATE 25 MG TABLET PO SCH ×2 (09:41→20:29)
[2022-03-28] MEDS: Magnesium 1GM/D5W 100ML PREMIX 100 ML IV SCH ×2 (11:38→13:39)
[2022-03-28 12:10] VITALS: BP 139/76
[2022-03-28] MEDS: MICAFUNGIN SODIUM 100 MG in IV NS 0.9% 100 ML IV SCH (12:35)
[2022-03-28] MEDS: DIGOXIN 0.25 MG TABLET GT SCH (12:36)
[2022-03-28 16:39] VITALS: BP 137/74
[2022-03-28] MEDS: IV D5W 1,000 ML IV PRN (17:52)
--- NOTE | 2022-03-28 19:00 | NUR ---
RN NOTE RECEIVED PATIENT IN BED ON MECHANICAL VENT NONVERBAL NODS BY HEAD,RESPOND TO SIMPLE QUESTIONS,ON G-TUBE FEEDING,NEPRO 45CC/HR CHECKED PLACEMENT IN PLACE NO RESIDUAL NOTED,RECTAL TUBE IN PLACE,GARCIA CATH IN PLACE URINE DRAINING YELLOW AND CLEAR BY GRAVITY,IV SITE IS ON RIGHT UPPER ARM MIDLINE INTACT PATENT ON IV D5W 125CC/HR.SAFETY MEASURE IMPLEMENT BED IN LOW POSITION AND LOCKED,HEAD OF THE BED ELEVATED CONTINUE TO MONITOR.
--- NOTE | 2022-03-28 19:00 | NUR ---
ELECTRONIC SEMICONDUCTOR PROCESSOR NOTES PATIENT LYING IN BED, HEAD OF BED ELEVATED. ALERT ORIENTED X 3-4, NON VERBAL, HEAD NODS TO RESPONSE TO SIMPLE QUESTION. NO ACUTE DISTRESS NOTED.BREATHING UNLABORED. ON VENTILATOR ON PRESCRIBED SETTING. SINUS RHYTHM ON TELE MONITOR. GARCIA CATHETER AND RECTAL TUBE PATENT AND INTACT. GT FEEDING PATENT AND INTACT RUNNING ORDERED SETTING. NEEDS ATTENDED AND ANTICIPATED. SAFETY MEASURES IN PLACE, CALL LIGHT WITHIN REACH. WILL ENDORSE TO NIGHT NURSE FOR CONTINUITY OF CARE. Addendum: 03/28/22 at 1915 by VENKAT MOSQUEDA RN ADDENDUM: PATIENT ABLE TO MOUTH WORDS.
[2022-03-28 20:00] VITALS: BP 149/58
[2022-03-29] VITALS: BP 140/74
[2022-03-29] MEDS: Magnesium 1GM/D5W 100ML PREMIX 100 ML IV SCH ×2 (00:08→00:49)
[2022-03-29] MEDS: IV D5W 1,000 ML IV PRN ×3 (02:07→21:51)
[2022-03-29] MEDS: NEPRO 1,000 ML BOTTLE GT SCH (03:49)
[2022-03-29 04:00] VITALS: BP 140/83
--- NOTE | 2022-03-29 06:48 | NUR ---
RN NOTE PATIENT REMAINS ON ALERT ORIENTED X2 ON MECHANICAL VENT NO SOB NOT ACUTE DISTRESS NOTED,ALL DUE MED GIVEN MD ORDERED KEPT CLEAN AND DRY ALL THE TIME,KEPT HEAD OF THE BED ELEVATED ALL THE TIME,ALL NEEDS MET ENDORSE NEXT COMING SHIFT FOR CONTINUATION OF CARE.
--- NOTE | 2022-03-29 07:30 | NUR ---
MARINE CARGO SURVEYOR AM NOTE RECEIVED PATIENT IN BED,ASLEEP, ALERT/ORIENTED X 3, NONVERBAL. WITH SHILEY 8XLT PROXIMAL CUFFED TO MECHANICAL VENT ON AC MODE AT RATE OF 18, TV 425, FIO2 40%, PEEP 5,TOLERATING WELL, O2 SATURATION OF 100%. BREATHING EVEN AND UNLABORED AND NOT IN ACUTE DISTRESS AT THE TIME. IV ACCESS ON LINWOOD MIDLINE INTACT AND PATENT AND WITH NO SIGNS OF INFILTRATION. D5W RUNNING AT 125 ML/HR. GTUBE INTACT AND PATENT, NO RESIDUAL NOTED AT THE TIME. CHECKED FOR PLACEMENT WITH NEPRO FEEDING AT 45CC/HR. WITH GARCIA CATHETER INTACT AND PATENT, DRAINING TO A CLEAR YELLOW URINE. RECTAL FLEXI-SEAL TUBE IN PLACE. SEE NURSING FLOWSHEET FOR SKIN ASSESSMENT, ON BARIMAX BED, TURN AND REPOSITION Q 2 HOURS. OFF LOADING,ALL SAFETY MEASURES IN PLACE. BED IN LOWEST POSITION AND LOCKED. SIDE RAILS UP X3. HOB UP 30DEG. CALL LIGHT WITHIN REACH. WILL CONTINUE TO MONITOR PATIENT
[2022-03-29 08:00] VITALS: BP 154/76
[2022-03-29] MEDS: PROSOURCE / PROSTAT (PYXIS) 30 ML UDC GT SCH ×3 (08:55→16:30)
[2022-03-29] MEDS: AMIODARONE HCL 200 MG TABLET GT SCH (08:56)
[2022-03-29] MEDS: METOPROLOL TARTRATE 25 MG TABLET PO SCH ×2 (08:57→21:12)
[2022-03-29] MEDS: NITROGLYCERIN 30 GM TUBE TP SCH ×2 (08:57→21:13)
[2022-03-29] MEDS: PANTOPRAZOLE 40 MG/PACK PACK NG SCH (08:57)
--- NOTE | 2022-03-29 09:30 | NUR ---
RN NOTES DUE MEDS GIVEN
[2022-03-29 12:00] VITALS: BP 145/81
[2022-03-29] MEDS: DIGOXIN 0.25 MG TABLET GT SCH (12:14)
[2022-03-29] MEDS: MICAFUNGIN SODIUM 100 MG in IV NS 0.9% 100 ML IV SCH (12:14)
[2022-03-29 14:26] LABS: BASOPHILS % (AUTO) 0.4 % (0.0-2.0); EOSINOPHILS % (AUTO) 5.6 % (0.0-6.0); HEMATOCRIT 25 % (39-51); LYMPHOCYTES # (AUTO) 1.4 K/uL (0.8-4.8); LYMPHOCYTES % (AUTO) 14.7 % (20.0-44.0); MEAN CORPUSCULAR HGB CONC 33 g/dl (31.0-36.0); MEAN CORPUSCULAR VOLUME 91 fL (80-96); MONOCYTES # (AUTO) 1.1 K/uL (0.1-1.30); MONOCYTES % (AUTO) 10.9 % (2.0-12.0); NEUTROPHILS # (AUTO) 6.7 K/uL (1.8-8.9); NEUTROPHILS % (AUTO) 68.4 % (43.0-81.0); PLATELET COUNT (AUTO) 96 K/uL (150-450); RED BLOOD CELL COUNT(AUTO) 2.71 MIL/uL (4.5-6.0); WHITE BLOOD COUNT (AUTO) 9.8 K/uL (4.3-11.0)
[2022-03-29 14:41] LABS: ALBUMIN 1.9 g/dL (3.4-5.0); BILIRUBIN,TOTAL 0.7 mg/dL (0.2-1.0); CALCIUM, SERUM 8.3 mg/dL (8.5-10.1); CREATININE 1.1 mg/dL (0.6-1.3); MAGNESIUM 1.8 mg/dL (1.8-2.4); PHOSPHORUS 3.5 mg/dL (2.5-4.9); POTASSIUM 4.2 mmol/L (3.5-5.1); TOTAL PROTEIN, SERUM 6.9 g/dL (6.4-8.2)
[2022-03-29 16:00] VITALS: BP 149/89
--- NOTE | 2022-03-29 18:59 | NUR ---
RN CLOSING NOTES ALL NEEDS MET AT THIS TIME. RESTING COMFORTABLY. PM CARE AND PRESCRIBED WOUND TREATMENT DONE EARLIER. IVF INFUSING WELL TO LINWOOD MIDLINE. GARCIA CATH IN PLACE WITH 1100 ML OUT PUT. FLEXISEAL IN PLACE WITH 200 ML OUTPUT. TURNED AND REPOSITIONED Q 2 HOURS. NO OTHER SIGNIFICANT CHANGE IN CONDITION. WILL ENDORSE TO NEXT SHIFT FOR VY.
--- NOTE | 2022-03-29 19:50 | NUR ---
RN NOTE RECEIVED PATIENT IN BED, SLEEPING, AROUSABLE TO NAME AND TOUCH. AOX4. ABLE TO MAKE NEEDS KNOWN. BREATHING EVEN AND UNLABORED. NO SOB NOTED. WITH TRACH. SHILEY 8. VENT SETTINGS OF AC 18, VT 500, FIO2 40, PEEP 5. TOLERATING WELL WITH OXYGEN SATURATION OF 100 PERCENT. HOB ELEVATED 35 DEGREES. DENIES NEED OF SUCTION, DENIES CHEST PAIN AT THIS TIME. SKIN WARM AND DRY. NOTED WITH RIGHT UPPER ARM MIDLINE, INFUSING D5W AT 125 CC/HR. NO INFILTRATION. G-TUBE INTACT, INFUSING NEPRO AT 45 CC/HR. NO RESIDUAL. GARCIA INTACT, DRAINING YELLOW URINE BY GRAVITY, NO VISIBLE HEMATURIA, FLEXI-SEAL IN PLACE, DRAINING BROWN LIQUID STOOL. NO BLEEDING NOTED. NO S/S OF HYPO/HYPERGLYCEMIA. BED LOW, IN LOCKED POSITION, CALL LIGHT WITHIN REACH.
[2022-03-29 20:00] VITALS: BP 155/84
[2022-03-30] VITALS: BP 141/79
[2022-03-30 04:00] VITALS: BP 148/83
[2022-03-30] MEDS: IV D5W 1,000 ML IV PRN ×2 (04:36→21:13)
[2022-03-30 08:00] VITALS: BP 114/61
[2022-03-30] MEDS: PANTOPRAZOLE 40 MG/PACK PACK NG SCH (08:46)
[2022-03-30] MEDS: AMIODARONE HCL 200 MG TABLET GT SCH (08:47)
[2022-03-30] MEDS: METOPROLOL TARTRATE 25 MG TABLET PO SCH ×2 (08:47→20:04)
[2022-03-30] MEDS: NITROGLYCERIN 30 GM TUBE TP SCH ×2 (08:49→20:05)
[2022-03-30] MEDS: PROSOURCE / PROSTAT (PYXIS) 30 ML UDC GT SCH ×3 (08:49→16:05)
--- NOTE | 2022-03-30 09:39 | NUR ---
RN NOTES RECEIVED CALL FROM PATIENT'S MOM, NEFTALI, BUT UNABLE TO SPEAK W/ FAMILY; CALLED NEFTALI AND LEFT VOICE MESSAGE, AWAITING CALL BACK.
--- NOTE | 2022-03-30 09:50 | NUR ---
RN NOTES SPOKE W/ NEFTALI, PATIENT'S MOTHER, AND PROVIDED UPDATE ON PATIENT'S CONDITION/PROGRESS.
--- NOTE | 2022-03-30 10:05 | NUR ---
RN NOTES PATIENT SEEN BY MD AT BEDSIDE.
[2022-03-30 12:00] VITALS: BP 125/59
[2022-03-30] MEDS: MICAFUNGIN SODIUM 100 MG in IV NS 0.9% 100 ML IV SCH (12:00)
[2022-03-30] MEDS: DIGOXIN 0.25 MG TABLET GT SCH (12:04)
[2022-03-30] MEDS ORDERED: AMIO200T7 GT (12:09)
[2022-03-30] MEDS ORDERED: METO25TA20 PO (12:09)
[2022-03-30] MEDS: NEPRO 1,000 ML BOTTLE GT SCH (12:09)
[2022-03-30] MEDS ORDERED: Digoxin GT (12:09)
--- NOTE | 2022-03-30 12:19 | NUR ---
HCBA Waiver Application: DALJIT completed and faxed HCBA Waiver Application to FAX: [phone].
[2022-03-30 16:00] VITALS: BP 112/67
--- NOTE | 2022-03-30 18:06 | NUR ---
RN NOTES CLEANED IN BED AND REPOSITIONED FOR COMFORT. DRESSING ON RIGHT FOOT C/D/I. GT FEEDING INFUSING, NO RESIDUAL NOTED. WATER FLUSHING DONE INDICATED. IVF INFUSING. FLEXI-SEAL INTACT AND IN PLACE. GARCIA CATH DRAINING YELLOW-COLORED URINE. DUE MEDS GIVEN.
--- NOTE | 2022-03-30 18:48 | NUR ---
RN NOTES TRACH SUCTIONED PRN FOR SECRETIONS PATIENT GESTURED.
--- NOTE | 2022-03-30 19:33 | NUR ---
RN NOTE RECEIVED PT IN BED AWAKE AND ALERT X4, NON VERBAL, BREATHING EVEN AND UNLABORED WITH TRACHEOSTOMY CONNECTED TO MECHANICAL VENTILATOR, TRACH ALETA #8, VENT SETTINGS AC 18, FIO2 40%, TV 500, PEEP OF 5. OXYGEN SATURATION A 100%, TOLERATING WELL. PT DENIES SUCTION AT THIS TIME. ON TELEMETRY MONITORING, DENIES CHEST PAIN. SKIN IS WARM AND DRY, NOTED WITH GENERALIZED EDEMA, LINWOOD MIDLINE INFUSING D5W AT 125CC/HR NO INFILTRATION NOTED, NOTED WITH GTUBE CURRENTLY INFUSING NEPHRO @45 CC/HR, TOLERATING WELL WITH 0 RESIDUAL. HEAD OF BED ELEVATED AT 35 DEGREES TO PREVENT ASPIRATION, NOTED WITH GARCIA CATHETER DRAINING BY GRAVITY, DRAINING YELLOW COLORED URINE NO VISIBLE HEMATURIA NOTED, FLEXI-SEAL NOTED DRAINING BROWN COLORED STOOL, NO VISIBLE BLOOD NOTED. BED IN LOWEST AND LOCKED POSITION, CALL LIGHT WITHIN REACH, WILL CONTINUE TO MONITOR.
[2022-03-30 20:00] VITALS: BP 135/73
[2022-03-31] VITALS: BP 144/61
[2022-03-31] MEDS: IV D5W 1,000 ML IV PRN ×3 (03:21→23:27)
[2022-03-31 04:00] VITALS: BP 139/70
[2022-03-31 07:23] LABS: BASOPHILS # (AUTO) 0.1 K/uL (0.0-0.2); BASOPHILS % (AUTO) 0.6 % (0.0-2.0); EOSINOPHILS % (AUTO) 7.6 % (0.0-6.0); HEMATOCRIT 25 % (39-51); HEMOGLOBIN 8.2 g/dL (13.5-17.5); LYMPHOCYTES # (AUTO) 1.7 K/uL (0.8-4.8); LYMPHOCYTES % (AUTO) 18.6 % (20.0-44.0); MEAN CORPUSCULAR HGB CONC 33 g/dl (31.0-36.0); MEAN CORPUSCULAR VOLUME 90 fL (80-96); MONOCYTES # (AUTO) 1.1 K/uL (0.1-1.30); MONOCYTES % (AUTO) 12.1 % (2.0-12.0); NEUTROPHILS # (AUTO) 5.5 K/uL (1.8-8.9); NEUTROPHILS % (AUTO) 61.1 % (43.0-81.0); PLATELET COUNT (AUTO) 114 K/uL (150-450); WHITE BLOOD COUNT (AUTO) 8.9 K/uL (4.3-11.0)
[2022-03-31 07:34] LABS: CALCIUM, SERUM 8.9 mg/dL (8.5-10.1); CREATININE 1.1 mg/dL (0.6-1.3); POTASSIUM 3.6 mmol/L (3.5-5.1)
[2022-03-31 08:00] VITALS: BP 137/59
[2022-03-31] MEDS: PANTOPRAZOLE 40 MG/PACK PACK NG SCH (09:26)
[2022-03-31] MEDS: METOPROLOL TARTRATE 25 MG TABLET PO SCH ×2 (09:26→21:00)
[2022-03-31] MEDS: AMIODARONE HCL 200 MG TABLET GT SCH (09:27)
[2022-03-31] MEDS: NITROGLYCERIN 30 GM TUBE TP SCH ×2 (09:29→21:14)
[2022-03-31] MEDS: PROSOURCE / PROSTAT (PYXIS) 30 ML UDC GT SCH ×3 (09:29→17:17)
[2022-03-31] MEDS: MICAFUNGIN SODIUM 100 MG in IV NS 0.9% 100 ML IV SCH (11:57)
[2022-03-31 12:00] VITALS: BP 129/66
[2022-03-31] MEDS: DIGOXIN 0.25 MG TABLET GT SCH (12:00)
[2022-03-31] MEDS: HYDROCODONE/APAP 5/325MG TABLET GT PRN (12:00)
[2022-03-31] MEDS: NEPRO 1,000 ML BOTTLE GT SCH (12:22)
[2022-03-31 16:00] VITALS: BP 135/80
[2022-03-31] MEDS: ACETAMINOPHEN 650 MG/20.3 ML UDC GT PRN (17:17)
--- NOTE | 2022-03-31 19:41 | NUR ---
TEMPLE MARKER OPENING RECEIVED PATIENT IN BED WITH EYES CLOSED, EASY TO AROUSE. NO S/S OF APPARENT DISTRESS, BREATHING EVEN AND UNLABORED-- VENT DEPENDENT. NO C/O PAIN AT THIS TIME. TELE MONITOR READING SR 81 BPM. G-TUBE RUNNING NEPHRO @45 MLS/HR. GARCIA AND FLEXISEAL NOTED IN PLACE. IV D5W RUNNING @125ML/HR. SAFETY IN PLACE. WILL CONTINUE WITH THE PLAN OF CARE FOR PATIENT.
[2022-03-31 20:00] VITALS: BP 137/80
[2022-04-01] VITALS: BP 140/77
--- NOTE | 2022-04-01 02:55 | NUR ---
0255 [facility] CALLED TO CONFIRM PARACHUTE SUPERVISOR TIME FOR PATIENT, VERIFIED PARACHUTE SUPERVISOR TIME AT 1030 WITH RT AND JOSE L TURK.
[2022-04-01 04:00] VITALS: BP 149/80
[2022-04-01 04:30] VITALS: BP 173/97
--- NOTE | 2022-04-01 07:07 | NUR ---
DIRECTOR OF VOLUNTEER SERVICES CLOSING PATIENT IN BED, A/OX4. NO S/S OF APPARENT DISTRESS, BREATHING EVEN AND UNLABORED. DENIES ANY PAIN. TELE MONITOR READING SR 87 BPM THIS AM. FLEXISEAL NO OUTPUT. GARCIA CATHETER WITH UO OF 2, 350. IV D5W RUNNING @ 125CC/HR. NEPRO RUNNING @ 45ML/HR TOLERATING WELL. PATIENT FOR DISCHARGE TODAY, ENDORSED TO MORNING SHIFT. ALL NEEDS ATTENDED. ALL SCHEDULED MEDS ADMINISTERED. DAFETY KEPT IN PLACE THE WHOLE SHIFT. ENDORSED TO [place] FOR CONTINUITY OF CARE.
[2022-04-01 08:00] VITALS: BP 147/71
[2022-04-01] MEDS: PANTOPRAZOLE 40 MG/PACK PACK NG SCH (08:19)
[2022-04-01] MEDS: NITROGLYCERIN 30 GM TUBE TP SCH (08:19)
[2022-04-01] MEDS: PROSOURCE / PROSTAT (PYXIS) 30 ML UDC GT SCH ×2 (08:19→13:39)
[2022-04-01] MEDS: METOPROLOL TARTRATE 25 MG TABLET PO SCH (08:19)
[2022-04-01] MEDS: AMIODARONE HCL 200 MG TABLET GT SCH (08:21)
--- NOTE | 2022-04-01 09:59 | NUR ---
RN NOTE NASAL SWAB SPECIMEN FOR COVID ANTIGEN TEST COLLECTED AND SENT TO LAB.
--- NOTE | 2022-04-01 11:41 | NUR ---
DALJIT received call from Tatum from [phone] ext. [phone] statign she has reviewed the HCBA Waiver application and asked for discharge plan. DALJIT notified Tatum that the pt. will be discharged today to [facility]- P# [phone], F#. Per Tatum , she will be transferring this HCBA application to [facility] for them to take over as facility is in that [facility]. Noted. Addendum: 04/01/22 at 1158 by ALYSSA BOCANEGRA Waiver will be sent to [facility] TEL:[phone] Per Tatum.
[2022-04-01] MEDS ORDERED: COVID-19 VACC,MRNA(MODERNA) 100 MCG/0.5 ML IM ONE (12:00)
[2022-04-01] MEDS: MICAFUNGIN SODIUM 100 MG in IV NS 0.9% 100 ML IV SCH (12:21)
[2022-04-01 12:38] VITALS: BP 159/89
[2022-04-01] MEDS: DIGOXIN 0.25 MG TABLET GT SCH (13:39)
--- NOTE | 2022-04-01 14:36 | NUR ---
RN NOTE PT D/[facility], ENDORSED TO GEOVANY ALVAREZ. PT WAS PIKED UP BY 5 EMT PERSONNEL. PT IN STABLE CONDITION. NOT IN RESPIRATORY DISTRESS.
== END 2022-04-01 16:03 | DRG 314 ==
LOC: ER 01:51 → TRANSITION 08:56 → TELE1 14:03 → TELE-TD 22:32 → TELE1 03-02 15:14 → TELE-TD 03-05 17:41 → TELE1 03-09 15:47
PROVIDERS: ATTEND Internal Medicine
PROC: 5A1955Z Respiratory Ventilation, Greater than 96 Consecutive Hours (ICD-10-PCS; principal; 2022-02-26)
PROC: 05HF33Z Insertion of Infusion Device into Left Cephalic Vein, Percutaneous Approach (ICD-10-PCS; 2022-02-26)
PROC: 0DH63UZ Insertion of Feeding Device into Stomach, Percutaneous Approach (ICD-10-PCS; 2022-03-04)
PROC: 05H933Z Insertion of Infusion Device into Right Brachial Vein, Percutaneous Approach (ICD-10-PCS; 2022-03-16)
PROC: 0B21XFZ Change Tracheostomy Device in Trachea, External Approach (ICD-10-PCS; 2022-03-17)
PROC: 30233N1 Transfusion of Nonautologous Red Blood Cells into Peripheral Vein, Percutaneous Approach (ICD-10-PCS; 2022-03-18)
DX: T80.211A Bloodstream infection due to central venous catheter, initial encounter (principal); B37.7 Candidal sepsis; J96.21 Acute and chronic respiratory failure with hypoxia; J15.9 Unspecified bacterial pneumonia; N17.0 Acute kidney failure with tubular necrosis; I50.33 Acute on chronic diastolic (congestive) heart failure; I48.92 Unspecified atrial flutter; Z99.11 Dependence on respirator [ventilator] status; D68.59 Other primary thrombophilia; G93.1 Anoxic brain damage, not elsewhere classified; J98.11 Atelectasis; J90 Pleural effusion, not elsewhere classified; Z68.44 Body mass index [BMI] 60.0-69.9, adult; E46 Unspecified protein-calorie malnutrition; E87.2 Acidosis; I82.612 Acute embolism and thrombosis of superficial veins of left upper extremity; I96 Gangrene, not elsewhere classified; K94.23 Gastrostomy malfunction; L03.114 Cellulitis of left upper limb; E87.0 Hyperosmolality and hypernatremia; B37.49 Other urogenital candidiasis; I48.91 Unspecified atrial fibrillation; Z20.822 Contact with and (suspected) exposure to COVID-19; I11.0 Hypertensive heart disease with heart failure; R13.10 Dysphagia, unspecified; I25.2 Old myocardial infarction; Z86.74 Personal history of sudden cardiac arrest; E66.01 Morbid (severe) obesity due to excess calories; D64.9 Anemia, unspecified; Y95 Nosocomial condition; Z74.01 Bed confinement status; L60.3 Nail dystrophy; D69.59 Other secondary thrombocytopenia; L97.519 Non-pressure chronic ulcer of other part of right foot with unspecified severity; Y83.3 Surgical operation with formation of external stoma as the cause of abnormal reaction of the patient, or of later complication, without mention of misadventure at the time of the procedure; Y82.9 Unspecified medical devices associated with adverse incidents; I87.8 Other specified disorders of veins; Y92.89 Other specified places as the place of occurrence of the external cause; D63.8 Anemia in other chronic diseases classified elsewhere; E83.51 Hypocalcemia; E87.6 Hypokalemia
CPT/HCPCS: 31720; 36410; 36415; 36600; 43760; 71045-TC; 74018; 76770-TC; 80048-TC; 80053-TC; 80061-TC; 80076-TC; 80162-TC; 80202-TC; 81001; 82272-TC; 82803-TC; 83605-TC; 83735-TC; 84100-TC; 84443-TC; 84484-TC; 85025-TC; 86704; 86705; 86706; 86803; 86850-TC; 87040-TC; 87070-TC; 87086-TC; 87186-TC; 87340; 93307-TC; 93971-TC; 94003-TC; 94640-TC; 94760-TC; 94762-TC; 94799-TC; 99082-TC; A4216; A4217; A4623; A6253; A6403; A7526; G0378; J0153; J0282; J0456; J0690; J0692; J0770; J1160; J1450; J1650; J1940; J2185; J2248; J2270; J2543; J2704; J3370; J3475; J3480; J3490; J7030; J7040; J7042; J7050; J7060; J7070; J7120; P9016; Q9963